=== PATIENT | female | born 1960 | race Caucasian/White ===

== ENCOUNTER 2016-10-14 08:36 | Day surgery (SDC) | payer MEDICARE, OTHER ==
[2016-10-14 08:58] VITALS: TEMP 98.3
[2016-10-14 09:33] LABS: INR 1.1 (<1.1)
[2016-10-14] MEDS: ALBUMIN HUMAN 25% 50 ML in EMPTY BAG 1 BAG IVPB SCH ×4 (11:07→11:56)
--- NOTE | 2016-10-14 11:22 | US ---
EXAMINATION TYPE: US guide vascular access DATE OF EXAM: 10/14/2016 10:32 AM HISTORY: Needs IV access for albumin therapy. PROCEDURE: Maximal barrier technique utilized. The skin overlying the basilic vein was localized with ultrasoun d and the vein was noted to be compressible and patent by ultrasound and ultrasound image was obtaine d and submitted on patient's chart. Under direct ultrasound guidance a 20-gauge Angiocath was advanc ed into the vein and fixed in place. Catheter was aspirated and flushed with sterile saline. Hemost asis achieved. Catheter fixed in place. No immediate complication. IMPRESSION: Ultrasound-guided venipuncture, this procedure performed by the undersigned.
[2016-10-14 11:23] VITALS: RESP 16
[2016-10-14 12:51] VITALS: BP 144/70; PULSE 86
--- NOTE | 2016-10-14 16:55 | US ---
EXAMINATION TYPE: US paracentesis abd w/image DATE OF EXAM: 10/14/2016 1:03 PM COMPARISON: NONE HISTORY: Ascites. PROCEDURE: Maximal barrier technique was utilized. The skin overlying a suitable pocket of fluid was localized with ultrasound and the overlying skin was prepped and draped. Ultrasound was utilized with sterile technique. Lidocaine was used for local anesthesia and a skin nancy made with a scalpel. Catheter was advanced under direct ultrasound guidance into a suitable pocket of fluid and approximately 21 liters of clear yellow fluid were removed. Catheter was withdrawn and hemostasis achieved. There is no im mediate complication; the patient is discharged in stable condition. IMPRESSION: STATUS POST ULTRASOUND GUIDED PARACENTESIS FOR PALLIATION OF ASCITES. THIS PROCEDURE WA S PERFORMED BY THE UNDERSIGNED.
== END 2016-10-14 13:10 | disposition home or self-care (01) ==
LOC: RADPROMAIN 08:36
PROVIDERS: ATTEND Family Medicine
DX: R18.8 Other ascites (principal); K75.9 Inflammatory liver disease, unspecified
CPT/HCPCS: 82565; 85049; 85610; 76937; 49083; P9047

== ENCOUNTER 2016-11-16 08:31 | Day surgery (SDC) | payer MEDICARE, OTHER ==
[~2016-11-16 08:31] MED LIST: SODIUM BICARB 4% 5 ML VIAL (0.48 MEQ/ML) MISCELLANE PRN
[2016-11-16 08:47] VITALS: RESP 20; TEMP 98.4
[2016-11-16 09:33] LABS: INR 1.1 (<1.1); Prothrombin Time 10.8 sec (9.0-12.0)
[2016-11-16] MEDS: ALBUMIN HUMAN 25% 50 ML in EMPTY BAG 1 BAG IVPB SCH ×4 (10:15→11:04)
[2016-11-16 13:03] VITALS: BP 120/78; PULSE 90
--- NOTE | 2016-11-16 13:24 | US ---
Therapeutic paracentesis. CLINICAL HISTORY: Ascites The procedure was discussed with the patient. The risks, complications, benefits, and alternatives we re discussed and any questions were answered. Informed consent was obtained. The patient was placed s upine on the ultrasound table and prepped and draped in the usual sterile fashion. All elements of maximal barrier technique were utilized. Under ultrasound guidance, access into the right lower quadrant was obtained, via the paracentesis catheter system and direct ultrasound guidanc e. Approximately 17 liters of straw-colored fluid was removed. The patient was stable throughout the pro cedure and remained stable upon discharge from Department of Radiology. IMPRESSION: Successful therapeutic paracentesis under ultrasound guidance.
== END 2016-11-16 13:24 | disposition home or self-care (01) ==
LOC: RADPROMAIN 08:31
PROVIDERS: ATTEND Family Medicine
DX: R18.8 Other ascites (principal)
CPT/HCPCS: 82565; 85049; 85610; 96365; 36415; 49083; P9047

== ENCOUNTER 2016-12-09 08:43 | Day surgery (SDC) | payer MEDICARE, OTHER ==
[2016-12-09 08:57] VITALS: TEMP 98.4
[2016-12-09 09:39] LABS: Mean Platelet Volume 7.8
[2016-12-09 09:46] LABS: INR 1.1 (<1.1)
[2016-12-09 09:47] LABS: Prothrombin Time 11.4 sec (9.0-12.0)
[2016-12-09] MEDS: ALBUMIN HUMAN 25% 50 ML in EMPTY BAG 1 BAG IVPB SCH ×4 (10:43→12:17)
[2016-12-09 12:41] VITALS: RESP 16
--- NOTE | 2016-12-09 13:46 | US ---
EXAMINATION TYPE: US paracentesis abd w/image DATE OF EXAM: 12/09/2016 12:56 PM COMPARISON: NONE HISTORY: Ascites. PROCEDURE: Maximal barrier technique was utilized. The skin overlying a suitable pocket of fluid was localized with ultrasound and the overlying skin was prepped and draped. Ultrasound was utilized with sterile technique. Lidocaine was used for local anesthesia and a skin nancy made with a scalpel. Catheter was advanced under direct ultrasound guidance into a suitable pocket of fluid and approximately 15 liters of serous fluid were removed. Catheter was withdrawn and hemostasis achieved. There is no immediat e complication; the patient is discharged in stable condition. IMPRESSION: STATUS POST ULTRASOUND GUIDED PARACENTESIS FOR PALLIATION OF ASCITES. THIS PROCEDURE WA S PERFORMED BY THE UNDERSIGNED.
--- NOTE | 2016-12-09 13:47 | US ---
EXAMINATION TYPE: US guide vascular access DATE OF EXAM: 12/09/2016 11:20 AM HISTORY: Needs IV access for albumin therapy. PROCEDURE: Maximal barrier technique utilized. The skin overlying the basilic vein was localized with ultrasoun d and the vein was noted to be compressible and patent by ultrasound and ultrasound image was obtaine d and submitted on patient's chart. Under direct ultrasound guidance a 20-gauge Angiocath was advanc ed into the vein and fixed in place. Catheter was aspirated and flushed with sterile saline. Hemost asis achieved. Catheter fixed in place. No immediate complication. IMPRESSION: Ultrasound-guided venipuncture, this procedure performed by the undersigned.
[2016-12-09 14:14] VITALS: BP 124/56; PULSE 89
== END 2016-12-09 13:05 | disposition home or self-care (01) ==
LOC: RADPROMAIN 08:43
PROVIDERS: ATTEND Family Medicine
DX: R18.8 Other ascites (principal)
CPT/HCPCS: 82565; 85049; 85610; 96365; 36415; 76937; 49083; P9047

== ENCOUNTER 2016-12-30 09:02 | Day surgery (SDC) | payer MEDICARE, OTHER ==
[2016-12-30 09:16] VITALS: RESP 16; TEMP 98.3
[2016-12-30 09:47] LABS: Prothrombin Time 10.3 sec (9.0-12.0)
[2016-12-30 10:05] LABS: Mean Platelet Volume 8.2
[2016-12-30] MEDS: ALBUMIN HUMAN 25% 50 ML in EMPTY BAG 1 BAG IVPB SCH ×4 (10:57→11:34)
--- NOTE | 2016-12-30 11:45 | US ---
EXAMINATION TYPE: US guide vascular access DATE OF EXAM: 12/30/2016 10:57 AM HISTORY: Needs IV access for albumin therapy. PROCEDURE: Maximal barrier technique utilized. The skin overlying the basilic vein was localized with ultrasoun d and the vein was noted to be compressible and patent by ultrasound and ultrasound image was obtaine d and submitted on patient's chart. Under direct ultrasound guidance a 20-gauge Angiocath was advanc ed into the vein and fixed in place. Catheter was aspirated and flushed with sterile saline. Hemost asis achieved. Catheter fixed in place. No immediate complication. IMPRESSION: Ultrasound-guided venipuncture, this procedure performed by the undersigned.
[2016-12-30 12:07] VITALS: BP 145/60; PULSE 88
--- NOTE | 2016-12-30 13:23 | US ---
EXAMINATION TYPE: US paracentesis abd w/image DATE OF EXAM: 12/30/2016 12:22 PM COMPARISON: NONE HISTORY: Ascites. PROCEDURE: Maximal barrier technique was utilized. The skin overlying a suitable pocket of fluid was localized with ultrasound and the overlying skin was prepped and draped. Ultrasound was utilized with sterile technique. Lidocaine was used for local anesthesia and a skin nancy made with a scalpel. Catheter was advanced under direct ultrasound guidance into a suitable pocket of fluid and approximately 9 liters of serous fluid were removed. Catheter was withdrawn and hemostasis achieved. There is no immediate complication; the patient is discharged in stable condition. IMPRESSION: STATUS POST ULTRASOUND GUIDED PARACENTESIS FOR PALLIATION OF ASCITES. THIS PROCEDURE WA S PERFORMED BY THE UNDERSIGNED.
== END 2016-12-30 12:15 | disposition home or self-care (01) ==
LOC: RADPROMAIN 09:02
PROVIDERS: ATTEND Family Medicine
DX: R18.8 Other ascites (principal)
CPT/HCPCS: 82565; 85049; 85610; 96365; 96366; 76937; 49083; P9047; 93976

== ENCOUNTER 2017-01-20 08:49 | Day surgery (SDC) | payer MEDICARE, OTHER ==
[2017-01-20 10:05] LABS: INR 1.1 (<1.1); Prothrombin Time 10.7 sec (9.0-12.0)
[2017-01-20 10:23] LABS: Mean Platelet Volume 8.5
[2017-01-20] MEDS: ALBUMIN HUMAN 25% 50 ML in EMPTY BAG 1 BAG IVPB SCH ×4 (11:08→11:55)
[2017-01-20 11:37] VITALS: RESP 18; TEMP 98.4
[2017-01-20 11:57] VITALS: BP 121/55; PULSE 90
--- NOTE | 2017-01-20 15:57 | US ---
EXAMINATION TYPE: US paracentesis abd w/image DATE OF EXAM: 01/20/2017 1:02 PM COMPARISON: NONE HISTORY: Ascites. PROCEDURE: Maximal barrier technique was utilized. The skin overlying a suitable pocket of fluid was localized with ultrasound and the overlying skin was prepped and draped. Ultrasound was utilized with sterile technique. Lidocaine was used for local anesthesia and a skin nancy made with a scalpel. Catheter was advanced under direct ultrasound guidance into a suitable pocket of fluid and approximately 8.3 liter s of serous fluid were removed. Catheter was withdrawn and hemostasis achieved. There is no immedia te complication; the patient is discharged in stable condition. IMPRESSION: STATUS POST ULTRASOUND GUIDED PARACENTESIS FOR PALLIATION OF ASCITES. THIS PROCEDURE WA S PERFORMED BY THE UNDERSIGNED.
== END 2017-01-20 12:00 | disposition home or self-care (01) ==
LOC: RADPROMAIN 08:49
PROVIDERS: ATTEND Family Medicine
DX: R18.8 Other ascites (principal)
CPT/HCPCS: 82565; 85049; 85610; 96365; 36415; 49083; P9047

== ENCOUNTER 2017-02-14 08:48 | Day surgery (SDC) | payer MEDICARE, OTHER ==
[2017-02-14 09:37] VITALS: RESP 18; TEMP 98.2
[2017-02-14 09:39] LABS: CH 28.8; CHCM 32.5; HCT 36.4 % (34.0-46.0); HDW 2.72; HGB 11.9 gm/dL (11.4-16.0); MCHC 32.6 g/dL (31.0-37.0); MCV 88.9 fL (80.0-100.0); Mean Platelet Volume 8.6; RBC 4.09 m/uL (3.80-5.40); RDW 14.3 % (11.5-15.5); WBC 7.2 k/uL (3.8-10.6)
[2017-02-14 09:54] LABS: INR 1.1 (<1.1); Prothrombin Time 11.2 sec (9.0-12.0)
[2017-02-14 10:01] LABS: Calcium 9.2 mg/dL (8.4-10.2); Potassium 4.1 mmol/L (3.5-5.1); Total Bilirubin 0.9 mg/dL (0.2-1.3); Total Protein 8.6 g/dL (6.3-8.2)
[2017-02-14] MEDS: ALBUMIN HUMAN 25% 50 ML in EMPTY BAG 1 BAG IVPB SCH ×3 (11:00→13:58)
[2017-02-14 11:25] VITALS: BP 150/68; PULSE 85
--- NOTE | 2017-02-14 11:35 | US ---
EXAMINATION TYPE: US guide vascular access DATE OF EXAM: 02/14/2017 10:59 AM HISTORY: Needs IV access for volume replacement therapy. PROCEDURE: Maximal barrier technique utilized. The skin overlying the basilic vein was localized with ultrasoun d and the vein was noted to be compressible and patent by ultrasound and ultrasound image was obtaine d and submitted on patient's chart. Under direct ultrasound guidance a 20-gauge Angiocath was advanc ed into the vein and fixed in place. Catheter was aspirated and flushed with sterile saline. Hemost asis achieved. Catheter fixed in place. No immediate complication. IMPRESSION: Ultrasound-guided venipuncture, this procedure performed by the undersigned.
--- NOTE | 2017-02-14 12:41 | US ---
EXAMINATION TYPE: US paracentesis abd w/image DATE OF EXAM: 02/14/2017 11:54 AM COMPARISON: NONE HISTORY: Ascites. PROCEDURE: Maximal barrier technique was utilized. The skin overlying a suitable pocket of fluid was localized with ultrasound and the overlying skin was prepped and draped. Ultrasound was utilized with sterile technique. Lidocaine was used for local anesthesia and a skin nancy made with a scalpel. Catheter was advanced under direct ultrasound guidance into a suitable pocket of fluid and approximately 5.3 liter s of serous fluid were removed. Catheter was withdrawn and hemostasis achieved. There is no immedia te complication; the patient is discharged in stable condition. IMPRESSION: STATUS POST ULTRASOUND GUIDED PARACENTESIS FOR PALLIATION OF ASCITES. THIS PROCEDURE WA S PERFORMED BY THE UNDERSIGNED.
== END 2017-02-14 11:30 | disposition home or self-care (01) ==
LOC: RADPROMAIN 08:48
PROVIDERS: ATTEND Family Medicine
DX: R18.8 Other ascites (principal)
CPT/HCPCS: 80053; 85027; 85610; 36415; 76937; 49083; P9047

== ENCOUNTER 2017-03-17 08:51 | Day surgery (SDC) | payer MEDICARE, OTHER ==
[2017-03-17 09:12] VITALS: RESP 20; TEMP 98.4
[2017-03-17 09:28] LABS: Mean Platelet Volume 8.9
[2017-03-17 09:35] LABS: INR 1.1 (<1.1); Prothrombin Time 10.8 sec (9.0-12.0)
[2017-03-17] MEDS: ALBUMIN HUMAN 25% 50 ML in EMPTY BAG 1 BAG IVPB SCH ×4 (11:03→11:50)
[2017-03-17 12:07] VITALS: BP 133/57; PULSE 73
--- NOTE | 2017-03-17 12:45 | US ---
EXAMINATION TYPE: US paracentesis abd w/image DATE OF EXAM: 03/17/2017 COMPARISON: NONE HISTORY: Ascites. PROCEDURE: Maximal barrier technique was utilized. The skin overlying a suitable pocket of fluid was localized with ultrasound and the overlying skin was prepped and draped. Ultrasound was utilized with sterile technique. Lidocaine was used for local anesthesia and a skin nancy made with a scalpel. Catheter was advanced under direct ultrasound guidance into a suitable pocket of fluid and approximately 8.2 liter s of serous fluid were removed. Catheter was withdrawn and hemostasis achieved. There is no immedia te complication; the patient is discharged in stable condition. IMPRESSION: STATUS POST ULTRASOUND GUIDED PARACENTESIS FOR PALLIATION OF ASCITES. THIS PROCEDURE WA S PERFORMED BY THE UNDERSIGNED.
== END 2017-03-17 12:20 | disposition home or self-care (01) ==
LOC: RADPROMAIN 08:51
PROVIDERS: ATTEND Family Medicine
DX: R18.8 Other ascites (principal)
CPT/HCPCS: 82565; 85049; 85610; 96365; 49083; P9047

== ENCOUNTER 2017-05-05 11:49 | Day surgery (SDC) | payer MEDICARE, OTHER ==
[2017-05-05 12:54] VITALS: TEMP 98.3
[2017-05-05 13:00] LABS: Mean Platelet Volume 8.5
[2017-05-05 13:04] LABS: Non-African American GFR(MDRD) 50 (>60 ml/min/1.73 sqM)
[2017-05-05 13:18] LABS: INR 1.1 (<1.2); Prothrombin Time 10.7 sec (9.0-12.0)
[2017-05-05] MEDS: ALBUMIN HUMAN 25% 50 ML in EMPTY BAG 1 BAG IVPB SCH ×4 (14:20→15:21)
--- NOTE | 2017-05-05 15:40 | US ---
EXAMINATION TYPE: US guide vascular access DATE OF EXAM: 05/05/2017 HISTORY: Needs IV access for albumin therapy. PROCEDURE: Maximal barrier technique utilized. The skin overlying the basilic vein was localized with ultrasoun d and the vein was noted to be compressible and patent by ultrasound and ultrasound image was obtaine d and submitted on patient's chart. Under direct ultrasound guidance a 20-gauge Angiocath was advanc ed into the vein and fixed in place. Catheter was aspirated and flushed with sterile saline. Hemost asis achieved. Catheter fixed in place. No immediate complication. IMPRESSION: Ultrasound-guided venipuncture, this procedure performed by the undersigned.
[2017-05-05 16:55] VITALS: BP 141/68; PULSE 80; RESP 16
--- NOTE | 2017-05-16 10:38 | US ---
EXAMINATION TYPE: US paracentesis abd w/image DATE OF EXAM: 05/05/2017 COMPARISON: NONE HISTORY: Ascites. PROCEDURE: Maximal barrier technique was utilized. The skin overlying a suitable pocket of fluid was localized with ultrasound and the overlying skin was prepped and draped. Ultrasound was utilized with sterile technique. Lidocaine was used for local anesthesia and a skin nancy made with a scalpel. Catheter was advanced under direct ultrasound guidance into a suitable pocket of fluid and approximately 14.5 lite rs of serous fluid were removed. Catheter was withdrawn and hemostasis achieved. There is no immedi ate complication; the patient is discharged in stable condition. IMPRESSION: STATUS POST ULTRASOUND GUIDED PARACENTESIS FOR PALLIATION OF ASCITES. THIS PROCEDURE WA S PERFORMED BY THE UNDERSIGNED.
== END 2017-05-05 15:40 | disposition home or self-care (01) ==
LOC: RADPROMAIN 11:49
PROVIDERS: ATTEND Family Medicine
DX: K71.51 Toxic liver disease with chronic active hepatitis with ascites (principal)
CPT/HCPCS: 82565; 85049; 85610; 96365; 36415; 76937; 49083; P9047

== ENCOUNTER 2017-05-19 14:39 | Day surgery (SDC) | payer MEDICARE, OTHER ==
[2017-05-19 12:15] VITALS: RESP 20; TEMP 98.2
[2017-05-19 12:43] LABS: Mean Platelet Volume 8.7
[2017-05-19 12:58] LABS: Non-African American GFR(MDRD) 58 (>60 ml/min/1.73 sqM)
[2017-05-19 12:59] LABS: Prothrombin Time 10.4 sec (9.0-12.0)
[2017-05-19] MEDS: ALBUMIN HUMAN 25% 50 ML in EMPTY BAG 1 BAG IVPB SCH ×4 (14:44→15:21)
--- NOTE | 2017-05-19 15:25 | US ---
EXAMINATION TYPE: US guide vascular access DATE OF EXAM: 05/19/2017 HISTORY: Needs IV access for albumin therapy. PROCEDURE: Maximal barrier technique utilized. The skin overlying the basilic vein was localized with ultrasoun d and the vein was noted to be compressible and patent by ultrasound and ultrasound image was obtaine d and submitted on patient's chart. Under direct ultrasound guidance a 20-gauge Angiocath was advanc ed into the vein and fixed in place. Catheter was aspirated and flushed with sterile saline. Hemost asis achieved. Catheter fixed in place. No immediate complication. IMPRESSION: Ultrasound-guided venipuncture, this procedure performed by the undersigned.
[2017-05-19 16:06] VITALS: BP 154/78; PULSE 78
--- NOTE | 2017-05-19 16:31 | US ---
EXAMINATION TYPE: US paracentesis abd w/image DATE OF EXAM: 05/19/2017 COMPARISON: NONE HISTORY: Ascites. PROCEDURE: Maximal barrier technique was utilized. The skin overlying a suitable pocket of fluid was localized with ultrasound and the overlying skin was prepped and draped. Ultrasound was utilized with sterile technique. Lidocaine was used for local anesthesia and a skin nancy made with a scalpel. Catheter was advanced under direct ultrasound guidance into a suitable pocket of fluid and approximately 10 liters of serous fluid were removed. Catheter was withdrawn and hemostasis achieved. There is no immediat e complication; the patient is discharged in stable condition. IMPRESSION: STATUS POST ULTRASOUND GUIDED PARACENTESIS FOR PALLIATION OF ASCITES. THIS PROCEDURE WA S PERFORMED BY THE UNDERSIGNED.
== END 2017-05-19 16:15 | disposition home or self-care (01) ==
LOC: RADPROMAIN 14:39
PROVIDERS: ATTEND Family Medicine
DX: K71.51 Toxic liver disease with chronic active hepatitis with ascites (principal)
CPT/HCPCS: 36415; 49083; 76937; 82565; 85049; 85610

== ENCOUNTER 2017-06-16 08:47 | Day surgery (SDC) | payer MEDICARE, OTHER ==
[2017-06-16 09:14] VITALS: RESP 18
[2017-06-16 09:23] LABS: Mean Platelet Volume 8.3
[2017-06-16 09:39] LABS: INR 1.1 (<1.2); Prothrombin Time 10.6 sec (9.0-12.0)
[2017-06-16] MEDS: ALBUMIN HUMAN 25% 50 ML in EMPTY BAG 1 BAG IVPB SCH ×3 (10:28→11:39)
--- NOTE | 2017-06-16 10:47 | US ---
EXAMINATION TYPE: US guide vascular access DATE OF EXAM: 06/16/2017 HISTORY: Needs IV access for albumin therapy. PROCEDURE: Maximal barrier technique utilized. The skin overlying the basilic vein was localized with ultrasoun d and the vein was noted to be compressible and patent by ultrasound and ultrasound image was obtaine d and submitted on patient's chart. Under direct ultrasound guidance a 20-gauge Angiocath was advanc ed into the vein and fixed in place. Catheter was aspirated and flushed with sterile saline. Hemost asis achieved. Catheter fixed in place. No immediate complication. IMPRESSION: Ultrasound-guided venipuncture, this procedure performed by the undersigned.
--- NOTE | 2017-06-16 13:01 | US ---
EXAMINATION TYPE: US paracentesis abd w/image DATE OF EXAM: 06/16/2017 COMPARISON: NONE HISTORY: Ascites. PROCEDURE: Maximal barrier technique was utilized. The skin overlying a suitable pocket of fluid was localized with ultrasound and the overlying skin was prepped and draped. Ultrasound was utilized with sterile technique. Lidocaine was used for local anesthesia and a skin nancy made with a scalpel. Catheter was advanced under direct ultrasound guidance into a suitable pocket of fluid and approximately 11.8 lite rs of serous fluid were removed. Catheter was withdrawn and hemostasis achieved. There is no immedi ate complication; the patient is discharged in stable condition. IMPRESSION: STATUS POST ULTRASOUND GUIDED PARACENTESIS FOR PALLIATION OF ASCITES. THIS PROCEDURE WA S PERFORMED BY THE UNDERSIGNED.
[2017-06-16 13:51] VITALS: BP 121/70; PULSE 84
== END 2017-06-16 12:30 | disposition home or self-care (01) ==
LOC: RADPROMAIN 08:47
PROVIDERS: ATTEND Family Medicine
DX: R18.8 Other ascites (principal)
CPT/HCPCS: 82565; 85049; 85610; 96365; 36415; 76937; 49083; P9047

== ENCOUNTER → 2017-07-12 | Outpatient (CLI) | payer MEDICARE, OTHER ==
--- NOTE | 2017-07-12 11:04 | US ---
EXAMINATION TYPE: US abdomen complete DATE OF EXAM: 07/12/2017 COMPARISON: CT CLINICAL HISTORY: K46.9 Abd hernia w/o obstruction. Pt states liver failure, h/o ascites with multipl e para's, recent bulging of lower abdomen just left of umbilicus EXAM MEASUREMENTS: Liver Length: 16.4 cm CBD: 1.4 cm Spleen: 18.5 cm Right Kidney: 10.7 x 4.9 x 4.3 cm Left Kidney: 11.5 x 4.8 x 3.8 cm Large pt body habitus, difficult to scan Pancreas: wnl, tail obscured by overlying bowel gas Liver: Cirrhotic in appearance, compatible with patient's history Gallbladder: Surgically absent Evidence for sonographic Willard's sign: No CBD: Dilated for post justin Spleen: Enlarged Right Kidney: wnl Left Kidney: Multiple cysts, largest measured mid/medial= 1.8 x 1.9 x 2.1 cm Upper IVC: Difficult to visualize due to cirrhotic liver and large pt body habitus Abd Aorta: Obscured by overlying bowel gas Ascites present Lower abdomen left of umbilicus at area of pt's bulging shows fluid filled collection= 10.7 x 4.1 x 12.7 cm with probable communication to ascites IMPRESSION: 1. Left para midline within the subcutaneous tissues there is a focal fluid collection measuring 10.7 x 4.1 x 12.7 cm with a fluid-filled tract communicating with the intra-abdominal ascites (likely mod erate volume ascites but partially visualized). 2. Cirrhotic morphology of the liver, sequela of portal venous hypertension with splenic enlargement and either complex ascites anterior to the pancreas or peripancreatic adenopathy. 3. Left renal cysts with the largest measuring 2.1 cm.
== END | disposition home or self-care (01) ==
LOC: RADUSWWP 10:10
PROVIDERS: ATTEND Family Medicine
DX: N28.1 Cyst of kidney, acquired (principal); K76.6 Portal hypertension; K74.60 Unspecified cirrhosis of liver; R16.1 Splenomegaly, not elsewhere classified; R18.8 Other ascites; R59.9 Enlarged lymph nodes, unspecified
CPT/HCPCS: 76700

== ENCOUNTER 2017-07-21 08:56 | Day surgery (SDC) | payer MEDICARE, OTHER ==
[2017-07-21 09:44] LABS: Mean Platelet Volume 8.9
[2017-07-21 09:51] LABS: INR 1.1 (<1.2); Prothrombin Time 10.8 sec (9.0-12.0)
[2017-07-21 10:22] VITALS: TEMP 98.1
[2017-07-21] MEDS: ALBUMIN HUMAN 25% 50 ML in EMPTY BAG 1 BAG IVPB SCH ×4 (11:00→11:55)
[2017-07-21 11:57] VITALS: RESP 16
[2017-07-21 12:58] VITALS: BP 130/70; PULSE 80
--- NOTE | 2017-07-21 13:44 | US ---
EXAMINATION TYPE: US guide vascular access DATE OF EXAM: 07/21/2017 HISTORY: Needs IV access for albumin therapy. PROCEDURE: Maximal barrier technique utilized. The skin overlying the basilic vein was localized with ultrasoun d and the vein was noted to be compressible and patent by ultrasound and ultrasound image was obtaine d and submitted on patient's chart. Under direct ultrasound guidance a 20-gauge Angiocath was advanc ed into the vein and fixed in place. Catheter was aspirated and flushed with sterile saline. Hemost asis achieved. Catheter fixed in place. No immediate complication. IMPRESSION: Ultrasound-guided venipuncture, this procedure performed by the undersigned.
--- NOTE | 2017-07-21 13:45 | US ---
EXAMINATION TYPE: US paracentesis abd w/image DATE OF EXAM: 07/21/2017 COMPARISON: NONE HISTORY: Ascites. PROCEDURE: Maximal barrier technique was utilized. The skin overlying a suitable pocket of fluid was localized with ultrasound and the overlying skin was prepped and draped. Ultrasound was utilized with sterile technique. Lidocaine was used for local anesthesia and a skin nancy made with a scalpel. Catheter was advanced under direct ultrasound guidance into a suitable pocket of fluid and approximately 11.4 lite rs of serous fluid were removed. Catheter was withdrawn and hemostasis achieved. There is no immedi ate complication; the patient is discharged in stable condition. IMPRESSION: STATUS POST ULTRASOUND GUIDED PARACENTESIS FOR PALLIATION OF ASCITES. THIS PROCEDURE WA S PERFORMED BY THE UNDERSIGNED.
== END 2017-07-21 12:20 | disposition home or self-care (01) ==
LOC: RADPROMAIN 08:56
PROVIDERS: ATTEND Family Medicine
DX: K71.51 Toxic liver disease with chronic active hepatitis with ascites (principal)
CPT/HCPCS: 82565; 85049; 85610; 96365; 36415; 76937; 49083; P9047

== ENCOUNTER 2017-08-18 08:32 | Day surgery (SDC) | payer MEDICARE, OTHER ==
[2017-08-18 09:17] VITALS: RESP 14; TEMP 97.5
[2017-08-18 09:18] LABS: Mean Platelet Volume 8.9
[2017-08-18 10:43] LABS: Partial Thromboplastin Time 23.4 sec (22.0-30.0); Prothrombin Time 10.5 sec (9.0-12.0)
[2017-08-18] MEDS: ALBUMIN HUMAN 25% 50 ML in EMPTY BAG 1 BAG IVPB SCH ×4 (11:15→11:50)
[2017-08-18 12:53] VITALS: BP 146/93; PULSE 85
--- NOTE | 2017-08-18 13:26 | US ---
EXAMINATION TYPE: US guide vascular access DATE OF EXAM: 08/18/2017 HISTORY: Needs IV access for albumin therapy. PROCEDURE: Maximal barrier technique utilized. The skin overlying the basilic vein was localized with ultrasoun d and the vein was noted to be compressible and patent by ultrasound and ultrasound image was obtaine d and submitted on patient's chart. Under direct ultrasound guidance a 20-gauge Angiocath was advanc ed into the vein and fixed in place. Catheter was aspirated and flushed with sterile saline. Hemost asis achieved. Catheter fixed in place. No immediate complication. IMPRESSION: Ultrasound-guided venipuncture, this procedure performed by the undersigned.
--- NOTE | 2017-08-18 14:47 | US ---
EXAMINATION TYPE: US paracentesis abd w/image DATE OF EXAM: 08/18/2017 COMPARISON: NONE HISTORY: Ascites. PROCEDURE: Maximal barrier technique was utilized. The skin overlying a suitable pocket of fluid was localized with ultrasound and the overlying skin was prepped and draped. Ultrasound was utilized with sterile technique. Lidocaine was used for local anesthesia and a skin nancy made with a scalpel. Catheter was advanced under direct ultrasound guidance into a suitable pocket of fluid and approximately 13.2 lite rs of serous fluid were removed. Catheter was withdrawn and hemostasis achieved. There is no immedi ate complication; the patient is discharged in stable condition. IMPRESSION: STATUS POST ULTRASOUND GUIDED PARACENTESIS FOR PALLIATION OF ASCITES. THIS PROCEDURE WA S PERFORMED BY THE UNDERSIGNED.
== END 2017-08-18 13:04 | disposition home or self-care (01) ==
LOC: RADPROMAIN 08:32
PROVIDERS: ATTEND Family Medicine
DX: R18.8 Other ascites (principal)
CPT/HCPCS: 82565; 85049; 85610; 85730; 96365; 76937; 49083; P9047

== ENCOUNTER 2017-08-31 15:42 | Emergency (ER) | payer MEDICARE, OTHER ==
[2017-08-31 15:51] VITALS: RESP 18
[2017-08-31] MEDS ORDERED: KETOROLAC 30 MG/ML 1 ML VIAL IVP STA (16:06)
[2017-08-31] MEDS ORDERED: MORPHINE SULFATE 2 MG/ML SYRINGE IVP STA (16:06)
[2017-08-31] MEDS ORDERED: ONDANSETRON 4 MG/2 ML VIAL IVP STA (16:06)
--- NOTE | 2017-08-31 16:11 | ED ---
Abdominal Pain HPI - General Chief Complaint: Abdominal Pain Stated Complaint: POSS KIDNEY STONE Source: patient Mode of arrival: ambulatory Limitations: no limitations - History of Present Illness Initial Comments: Patient is a 57-year-old female with a past medical history of hepatitis C and end-stage liver cirrhosis presenting with right upper flank pain radiating down to her right hip that started yesterday. Past medical history as below. Patient states that she developed a sharp pain last night. Around 11 PM it started to dissipate after taking an oral pain medication. She woke up this morning in the right flank pain was more dull in nature. Very positional. It radiates down to her right hip. She took a half tab of Percocet prior to arrival and states that the pain is significantly improved. She has associated nausea. Chills. No blood in her urine. No pain or burning with urination. She does not have a urologist. Her last kidney stone was about 10 years ago. States that the pain is almost identical to the pain that she is having now. Otherwise denies fever, chills, headache and changes of vision, URI symptoms, shortness of breath, cough, chest pain, vomiting, diarrhea, pain or burning with urination. - Related Data Home Medications Medication Instructions Recorded Confirmed Furosemide [Lasix] 80 mg PO DAILY 04/01/16 08/31/17 Spironolactone 200 mg PO DAILY 05/13/16 08/31/17 oxyCODONE HCL/ACETAMINOPHEN 1 tab PO QID PRN 08/31/17 08/31/17 [Percocet 10-325 mg] Allergies Allergy/AdvReac Type Severity Reaction Status Date / Time No Known Allergies Allergy Verified 08/31/17 16:22 Review of Systems ROS Statement: Those systems with pertinent positive or pertinent negative responses have been documented in the HPI. ROS Other: All systems not noted in ROS Statement are negative. Past Medical History Past Medical History: Liver Disease Additional Past Medical History / Comment(s): hepatitis c, end stage liver disease, kidney stones, cryptosporidium positive, Ascites pancreatitis History of Any Multi-Drug Resistant Organisms: None Reported Past Surgical History: Cholecystectomy, Hysterectomy Additional Past Surgical History / Comment(s): multi large volume paracentesis Past Anesthesia/Blood Transfusion Reactions: No Reported Reaction Past Psychological History: No Psychological Hx Reported Smoking Status: Former smoker Past Alcohol Use History: None Reported Past Drug Use History: None Reported - Past Family History Mother Family Medical History: Cancer Additional Family Medical History / Comment(s): breast with mets Father Family Medical History: Cancer Additional Family Medical History / Comment(s): prostate and colon ca General Exam Limitations: no limitations General appearance: alert, in no apparent distress Head exam: Present: atraumatic, normocephalic, normal inspection Eye exam: Present: normal appearance, PERRL, EOMI. Absent: scleral icterus, conjunctival injection, periorbital swelling ENT exam: Present: normal exam, mucous membranes moist Neck exam: Present: normal inspection. Absent: tenderness, meningismus, lymphadenopathy Respiratory exam: Present: normal lung sounds bilaterally. Absent: respiratory distress, wheezes, rales, rhonchi, stridor Cardiovascular Exam: Present: regular rate, normal rhythm, normal heart sounds. Absent: systolic murmur, diastolic murmur, rubs, gallop, clicks GI/Abdominal exam: Present: soft, normal bowel sounds, other (Right upper flank pain. Reproducible. No pain in the inguinal area or suprapubic area. No pain with palpation of the abdomen. There is an ascitic fluid wave. No peritoneal signs.). Absent: distended, tenderness, guarding, rebound, rigid Extremities exam: Present: normal inspection, full ROM, normal capillary refill. Absent: tenderness, pedal edema, joint swelling, calf tenderness Back exam: Present: normal inspection Neurological exam: Present: alert, oriented X3, CN II-XII intact Psychiatric exam: Present: normal affect, normal mood Skin exam: Present: warm, dry, intact, normal color. Absent: rash Course Vital Signs 08/31/17 08/31/17 08/31/17 15:46 17:28 17:48 Temperature 97.7 F 98.1 F Pulse Rate 68 79 Respiratory 18 18 Rate Blood Pressure 201/93 142/70 O2 Sat by Pulse 100 98 Oximetry Medical Decision Making - Medical Decision Making Patient is a 57-year-old female with a history of end-stage cirrhosis secondary to hep C and history of kidney stones presenting with history concerning for possible right nephrolithiasis. States that her symptoms are identical to her previous kidney stone 10 years ago. She has no abdominal pain otherwise. No fevers. We'll order a CT renal stone protocol with abdominal labs, coags and a urinalysis, EKG. Morphine. Toradol. Zofran. 1637: Reviewed EKG. Normal sinus rhythm at 83. MT 166. QRS 72. QTc 446. No ST changes. 1710: Reviewed laboratory studies. CBC within normal limits. Electrolytes relatively within normal limits. Potassium hemolyzed. Liver function at baseline. Awaiting CT findings. Patient resting comfortably in the stretcher. Pain has 100% resolved. 1735: Reviewed CT findings with the patient. Chronic findings of umbilical hernia, cyst on the kidney, cirrhosis, ascites is known to the patient. Discussed that there seems to be a pulmonary nodule on the left lower lobe. This is new to the patient. Discussed that she will need repeat computed tomography scan in 6 months. Voiced understanding. Is also evidence of right hydronephrosis. No hydroureter. No obvious kidney stone but there could be one in the distal ureter per the radiology read. I discussed this with the patient. Her pain is well-controlled at this time. Comfortable discharge home and follow-up with her primary care physician. Provided a urologist for outpatient follow-up. Provided a urine strainer. Will follow-up with both her GI physician and primary care physician early next week. She is scheduled for a paracentesis on 09/08/2017. Noted that her blood pressure was quite elevated. Patient states that her blood pressures not treated secondary to her cirrhosis. Her blood pressure becomes a normal level after paracentesis. Instructed her to closely follow her blood pressures with the possibility of being on antihypertensive medication in the near future. I discussed further signs and symptoms on when to return to the emergency department for further evaluation. Voiced understanding and is comfortable discharge home. - Lab Data Result diagrams: 08/31/17 16:15 08/31/17 16:15 Lab Results 08/31/17 08/31/17 08/31/17 Range/Units 16:15 16:15 16:15 WBC 6.7 (3.8-10.6) k/uL RBC 4.12 (3.80-5.40) m/uL Hgb 11.6 (11.4-16.0) gm/dL Hct 35.7 (34.0-46.0) % MCV 86.8 (80.0-100.0) fL MCH 28.2 (25.0-35.0) pg MCHC 32.4 (31.0-37.0) g/dL RDW 13.6 (11.5-15.5) % Plt Count 98 L (150-450) k/uL Neutrophils % 81 % Lymphocytes % 9 % Monocytes % 6 % Eosinophils % 2 % Basophils % 0 % Neutrophils # 5.4 (1.3-7.7) k/uL Lymphocytes # 0.6 L (1.0-4.8) k/uL Monocytes # 0.4 (0-1.0) k/uL Eosinophils # 0.1 (0-0.7) k/uL Basophils # 0.0 (0-0.2) k/uL Manual Slide Review Performed RBC Morphology Normal PT 10.4 (9.0-12.0) sec INR 1.0 (<1.2) APTT 21.3 L (22.0-30.0) sec Sodium 139 (137-145) mmol/L Potassium 5.2 H (3.5-5.1) mmol/L Chloride 110 H (98-107) mmol/L Carbon Dioxide 20 L (22-30) mmol/L Anion Gap 9 mmol/L BUN 24 H (7-17) mg/dL Creatinine 1.40 H (0.52-1.04) mg/dL Est GFR (MDRD) Af Amer 47 (>60 ml/min/1.73 sqM) Est GFR (MDRD) Non-Af 38 (>60 ml/min/1.73 sqM) Glucose 222 H (74-99) mg/dL Calcium 8.6 (8.4-10.2) mg/dL Magnesium 1.7 (1.6-2.3) mg/dL Total Bilirubin 1.6 H (0.2-1.3) mg/dL AST 74 H (14-36) U/L ALT 39 (9-52) U/L Alkaline Phosphatase 82 (38-126) U/L Total Protein 7.9 (6.3-8.2) g/dL Albumin 3.5 (3.5-5.0) g/dL Urine Color Urine Appearance (Clear) Urine pH (5.0-8.0) Ur Specific [place] (1.001-1.035) Urine Protein (Negative) Urine Glucose (UA) (Negative) Urine Ketones (Negative) Urine Blood (Negative) Urine Nitrite (Negative) Urine Bilirubin (Negative) Urine Urobilinogen (<2.0) mg/dL Ur Leukocyte Esterase (Negative) Urine RBC (0-5) /hpf Urine WBC (0-5) /hpf Ur Squamous Epith Cells (0-4) /hpf Hyaline Casts (0-2) /lpf Urine Mucus (None) /hpf 08/31/17 Range/Units 16:15 WBC (3.8-10.6) k/uL RBC (3.80-5.40) m/uL Hgb (11.4-16.0) gm/dL Hct (34.0-46.0) % MCV (80.0-100.0) fL MCH (25.0-35.0) pg MCHC (31.0-37.0) g/dL RDW (11.5-15.5) % Plt Count (150-450) k/uL Neutrophils % % Lymphocytes % % Monocytes % % Eosinophils % % Basophils % % Neutrophils # (1.3-7.7) k/uL Lymphocytes # (1.0-4.8) k/uL Monocytes # (0-1.0) k/uL Eosinophils # (0-0.7) k/uL Basophils # (0-0.2) k/uL Manual Slide Review RBC Morphology PT (9.0-12.0) sec INR (<1.2) APTT (22.0-30.0) sec Sodium (137-145) mmol/L Potassium (3.5-5.1) mmol/L Chloride (98-107) mmol/L Carbon Dioxide (22-30) mmol/L Anion Gap mmol/L BUN (7-17) mg/dL Creatinine (0.52-1.04) mg/dL Est GFR (MDRD) Af Amer (>60 ml/min/1.73 sqM) Est GFR (MDRD) Non-Af (>60 ml/min/1.73 sqM) Glucose (74-99) mg/dL Calcium (8.4-10.2) mg/dL Magnesium (1.6-2.3) mg/dL Total Bilirubin (0.2-1.3) mg/dL AST (14-36) U/L ALT (9-52) U/L Alkaline Phosphatase (38-126) U/L Total Protein (6.3-8.2) g/dL Albumin (3.5-5.0) g/dL Urine Color Colorless Urine Appearance Clear (Clear) Urine pH 5.0 (5.0-8.0) Ur Specific [place] 1.005 (1.001-1.035) Urine Protein Trace H (Negative) Urine Glucose (UA) Negative (Negative) Urine Ketones Negative (Negative) Urine Blood Small H (Negative) Urine Nitrite Negative (Negative) Urine Bilirubin Negative (Negative) Urine Urobilinogen <2.0 (<2.0) mg/dL Ur Leukocyte Esterase Negative (Negative) Urine RBC 4 (0-5) /hpf Urine WBC 1 (0-5) /hpf Ur Squamous Epith Cells 1 (0-4) /hpf Hyaline Casts 1 (0-2) /lpf Urine Mucus Rare H (None) /hpf Disposition Clinical Impression: Flank pain, Hydronephrosis, Ascites, Cirrhosis, Pulmonary nodule, CKD (chronic kidney disease) Disposition: HOME SELF-CARE Condition: Good Instructions: Cirrhosis (ED), Kidney Stones (ED), Pulmonary Nodules (ED) Additional Instructions: Repeat CAT scan of the lungs and 6 months to evaluate pulmonary nodule on the left lower lobe. Referrals: Jordy Rios Jr, DO [Primary Care Provider] - 1-2 days Ludin Gay MD [STAFF PHYSICIAN] - 1-2 days
[2017-08-31 16:36] LABS: Appearance,Urine Clear (Clear); Bilirubin,Urine Negative (Negative); Glucose,Urine (UA) Negative (Negative); Ketones,Urine Negative (Negative); Leukocyte Esterase,Urine Negative (Negative); Mucus,Urine Rare /hpf; Nitrite,Urine Negative (Negative); Particle Count 1212; Protein,Urine Trace (Negative); RBC,Urine 4 /hpf (0-5); Specific Gravity,Urine 1.005 (1.001-1.035); Squamous Epithelial Cell,Urine 1 /hpf (0-4); UA Billing (MACRO vs. MICRO) MICRO; Urobilinogen,Urine <2.0 mg/dL (<2.0); WBC,Urine 1 /hpf (0-5)
[2017-08-31 16:38] LABS: Basophils % (A) 0 %; CH 28.9; CHCM 33.4; Eosinophils # (A) 0.1 k/uL (0-0.7); Eosinophils % (A) 2 %; HCT 35.7 % (34.0-46.0); HDW 2.86; HGB 11.6 gm/dL (11.4-16.0); Luc # (Auto) 0.09; Luc % (Auto) 1; Lymphocytes # (A) 0.6 k/uL (1.0-4.8); Lymphocytes % (A) 9 %; MCH 28.2 pg (25.0-35.0); MCHC 32.4 g/dL (31.0-37.0); MCV 86.8 fL (80.0-100.0); Mean Platelet Volume 8.3; Monocytes # (A) 0.4 k/uL (0-1.0); Monocytes % (A) 6 %; Neutrophils # (A) 5.4 k/uL (1.3-7.7); Neutrophils % (A) 81 %; RBC 4.12 m/uL (3.80-5.40); RDW 13.6 % (11.5-15.5); WBC 6.7 k/uL (3.8-10.6); WBC (Perox) 6.81
[2017-08-31 16:47] LABS: Calcium 8.6 mg/dL (8.4-10.2); Magnesium 1.7 mg/dL (1.6-2.3); Potassium 5.2 mmol/L (3.5-5.1); Total Bilirubin 1.6 mg/dL (0.2-1.3); Total Protein 7.9 g/dL (6.3-8.2)
[2017-08-31 17:00] LABS: Manual Review Performed; RBC Morphology Normal
[2017-08-31 17:04] LABS: Prothrombin Time 10.4 sec (9.0-12.0)
[2017-08-31 17:09] LABS: Partial Thromboplastin Time 21.3 sec (22.0-30.0)
--- NOTE | 2017-08-31 17:17 | CT ---
EXAMINATION TYPE: CT renal stones wo con DATE OF EXAM: 08/31/2017 HISTORY: right side flank pain, hx of renal stones, cysts, panreatitis, enlarged spleen CT DLP: 1083 mGycm. Automated Exposure Control for Dose Reduction was Utilized. TECHNIQUE: CT scan of the abdomen and pelvis is performed without oral or IV contrast. COMPARISON: 02/26/2016 FINDINGS: There is a 2 cm irregular subpleural infiltrate in the lateral left lower lobe. There is n o pleural effusion. There is a large amount of ascites fluid throughout the abdomen. There is umbilical hernia that conta ins ascites fluid. Liver is somewhat small consistent with cirrhosis. There is splenomegaly and spleen measures 15 cm. B ile ducts are not dilated. There are clips from cholecystectomy. I see no pancreatic mass. Kidneys have normal size. There is probably a 2 cm cortical cyst on the lateral left kidney. There is a somewhat exophytic 2 cm density on the lateral left kidney as well. This is probably additional cy st. The ureters do not appear dilated. There is some fullness of the left and right renal pelvis. The re are 7 mm pelvic calcifications on the right side and there is possibly a stone in the distal right ureter. The right sided hydronephrosis appears new compared to old exam. Left side appears unchanged . There is no sign of free air. I see no evidence of a bowel obstruction. There is a 9 x 6 cm fluid col lection inferior to the umbilicus in the subcutaneous fat consistent with additional ascites collecti on. I see no focal bone destruction. CONCLUSION: Massive ascites. There is new right-sided hydronephrosis compared to last exam and possible calculus in the distal right ureter that is new compared to last exam. Umbilical hernia and also additional subcutaneous ascites fluid on the lower anterior abdominal wall. Cirrhosis. Splenomegaly. There is clearing of a calculus in the left kidney compared to last exam. There are 2 left renal elma ical cysts that are stable in size compared to last exam. The exophytic cyst has higher attenuation c ompared to last exam and this could relate to calcium deposit.
[2017-08-31 17:29] VITALS: BP 142/70; PULSE 79
[2017-08-31 17:48] VITALS: TEMP 98.1
== END 2017-08-31 17:49 | disposition home or self-care (01) ==
LOC: EC 15:42
DX: N13.30 Unspecified hydronephrosis (principal); K74.60 Unspecified cirrhosis of liver; R91.1 Solitary pulmonary nodule; N18.9 Chronic kidney disease, unspecified; Z86.19 Personal history of other infectious and parasitic diseases; Z87.442 Personal history of urinary calculi; Z90.49 Acquired absence of other specified parts of digestive tract; Z87.891 Personal history of nicotine dependence; Z79.899 Other long term (current) drug therapy
CPT/HCPCS: 36415; 93005; 80053; 83735; 85025; 85610; 85730; 81001; 74150; 99284; 96374; 96375 ×2; J2405; J1885; J2270

== ENCOUNTER 2017-11-24 11:57 | Day surgery (SDC) | payer MEDICARE, OTHER ==
[2017-11-24 12:44] VITALS: TEMP 98.4
[2017-11-24 13:16] LABS: INR 1.1 (<1.2); Prothrombin Time 10.6 sec (9.0-12.0)
[2017-11-24 13:48] LABS: Platelet Count 82 k/uL (150-450)
[2017-11-24] MEDS: ALBUMIN HUMAN 25% 50 ML in EMPTY BAG 1 BAG IVPB SCH ×4 (13:56→14:57)
--- NOTE | 2017-11-24 15:24 | US ---
EXAMINATION TYPE: US guide vascular access DATE OF EXAM: 11/24/2017 HISTORY: Needs IV access for albumin therapy. Multiple failed attempts at intravenous access. PROCEDURE: Maximal barrier technique utilized. The skin overlying the right basilic vein was localized with ult rasound and the vein was noted to be compressible and patent by ultrasound and ultrasound image was o btained and submitted on patient's chart. Under direct ultrasound guidance a 20-gauge Angiocath was advanced into the vein and fixed in place. Catheter was aspirated and flushed with sterile saline. Hemostasis achieved. Catheter fixed in place. No immediate complication. IMPRESSION: Ultrasound-guided venipuncture, this procedure performed by the undersigned.
--- NOTE | 2017-11-24 15:42 | US ---
EXAMINATION TYPE: US paracentesis abd w/image DATE OF EXAM: 11/24/2017 COMPARISON: NONE HISTORY: Ascites. PROCEDURE: Maximal barrier technique was utilized. The skin overlying a suitable pocket of fluid was localized with ultrasound and the overlying skin was prepped and draped. Ultrasound was utilized with sterile technique. Lidocaine was used for local anesthesia and a skin nancy made with a scalpel. Catheter was advanced under direct ultrasound guidance into a suitable pocket of fluid and approximately 8 liters of serous fluid were removed. Catheter was withdrawn and hemostasis achieved. There is no immediate complication; the patient is discharged in stable condition. IMPRESSION: STATUS POST ULTRASOUND GUIDED PARACENTESIS FOR PALLIATION OF ASCITES. THIS PROCEDURE WA S PERFORMED BY THE UNDERSIGNED.
[2017-11-24 15:52] VITALS: BP 151/69; PULSE 83; RESP 18
== END 2017-11-24 15:30 | disposition home or self-care (01) ==
LOC: RADPROMAIN 11:57
PROVIDERS: ATTEND Family Medicine
DX: K71.51 Toxic liver disease with chronic active hepatitis with ascites (principal)
CPT/HCPCS: 82565; 85049; 85610; 96365; 36415; 76937; 49083; P9047

== ENCOUNTER 2018-01-05 11:40 | Day surgery (SDC) | payer MEDICARE, OTHER ==
[2018-01-05 12:47] LABS: Basophils % (A) 1 %; Eosinophils # (A) 0.3 k/uL (0-0.7); Eosinophils % (A) 6 %; HCT 32.4 % (34.0-46.0); HGB 11.1 gm/dL (11.4-16.0); Lymphocytes # (A) 0.7 k/uL (1.0-4.8); Lymphocytes % (A) 15 %; MCH 28.8 pg (25.0-35.0); MCHC 34.2 g/dL (31.0-37.0); Mean Platelet Volume 8.7; Monocytes # (A) 0.2 k/uL (0-1.0); Monocytes % (A) 5 %; Neutrophils # (A) 3.3 k/uL (1.3-7.7); Neutrophils % (A) 73 %; RBC 3.85 m/uL (3.80-5.40); RDW 13.8 % (11.5-15.5); WBC 4.6 k/uL (3.8-10.6)
[2018-01-05 12:53] LABS: INR 1.1 (<1.2); Prothrombin Time 10.4 sec (9.0-12.0)
[2018-01-05 12:56] LABS: Platelet Count 81 k/uL (150-450)
[2018-01-05 13:09] LABS: Albumin 3.2 g/dL (3.5-5.0); Potassium 4.8 mmol/L (3.5-5.1)
[2018-01-05 13:10] LABS: Bilirubin, Delta 0.4 mg/dL (0.0-0.2); Bilirubin,Unconjugated 0.3 mg/dL (0.0-1.1); Calcium 8.9 mg/dL (8.4-10.2); Total Bilirubin 0.7 mg/dL (0.2-1.3)
[2018-01-05 13:15] VITALS: TEMP 97.9
[2018-01-05] MEDS: ALBUMIN HUMAN 25% 50 ML in EMPTY BAG 1 BAG IVPB SCH ×4 (13:33→15:06)
[2018-01-05 13:54] VITALS: RESP 16
--- NOTE | 2018-01-05 14:51 | US ---
EXAMINATION TYPE: US paracentesis abd w/image DATE OF EXAM: 01/05/2018 COMPARISON: NONE HISTORY: Ascites. PROCEDURE: Maximal barrier technique was utilized. The skin overlying a suitable pocket of fluid was localized with ultrasound and the overlying skin was prepped and draped. Ultrasound was utilized with sterile technique. Lidocaine was used for local anesthesia and a skin nancy made with a scalpel. Catheter was advanced under direct ultrasound guidance into a suitable pocket of fluid and approximately 4.8 liter s of serous fluid were removed. Catheter was withdrawn and hemostasis achieved. There is no immedia te complication; the patient is discharged in stable condition. IMPRESSION: STATUS POST ULTRASOUND GUIDED PARACENTESIS FOR PALLIATION OF ASCITES. THIS PROCEDURE WA S PERFORMED BY THE UNDERSIGNED.
--- NOTE | 2018-01-05 14:52 | US ---
EXAMINATION TYPE: US guide vascular access DATE OF EXAM: 01/05/2018 HISTORY: Needs IV access for albumin therapy, poor venous access. PROCEDURE: Maximal barrier technique utilized. The skin overlying the basilic vein was localized with ultrasoun d and the vein was noted to be compressible and patent by ultrasound and ultrasound image was obtaine d and submitted on patient's chart. Under direct ultrasound guidance a 20-gauge Angiocath was advanc ed into the vein and fixed in place. Catheter was aspirated and flushed with sterile saline. Hemost asis achieved. Catheter fixed in place. No immediate complication. IMPRESSION: Ultrasound-guided venipuncture, this procedure performed by the undersigned.
[2018-01-05 15:04] VITALS: BP 159/81; PULSE 80
[2018-01-05 21:22] LABS: Hemoglobin A1C 8.8 % (4.0-6.0)
== END 2018-01-05 14:45 | disposition home or self-care (01) ==
LOC: RADPROMAIN 11:40
PROVIDERS: ATTEND Family Medicine
DX: K71.51 Toxic liver disease with chronic active hepatitis with ascites (principal)
CPT/HCPCS: 80053; 82248; 85025; 85610; 83036; 96365; 36415; 76937; 49083; P9047

== ENCOUNTER 2018-05-14 12:04 | Day surgery (SDC) | payer MEDICARE, OTHER ==
[2018-05-14 12:23] VITALS: TEMP 98.1
[2018-05-14 12:52] LABS: INR 1.1 (<1.2); Prothrombin Time 10.5 sec (9.0-12.0)
[2018-05-14 13:18] LABS: Glucose,Whole Blood 393 mg/dL (75-99)
[2018-05-14 13:30] LABS: Mean Platelet Volume 8.4; Platelet Count 74 k/uL (150-450)
[2018-05-14] MEDS: ALBUMIN HUMAN 25% 50 ML in EMPTY BAG 1 BAG IVPB SCH ×4 (13:56→14:56)
[2018-05-14 14:49] VITALS: BP 175/89; PULSE 84; RESP 18
--- NOTE | 2018-05-14 18:06 | US ---
EXAMINATION TYPE: US paracentesis abd w/image DATE OF EXAM: 05/14/2018 COMPARISON: NONE HISTORY: Ascites. PROCEDURE: Maximal barrier technique was utilized. The skin overlying a suitable pocket of fluid was localized with ultrasound and the overlying skin was prepped and draped. Ultrasound was utilized with sterile technique. Lidocaine was used for local anesthesia and a skin nancy made with a scalpel. Catheter was advanced under direct ultrasound guidance into a suitable pocket of fluid and approximately 6.4 liter s of serous fluid were removed. Catheter was withdrawn and hemostasis achieved. There is no immedia te complication; the patient is discharged in stable condition. IMPRESSION: STATUS POST ULTRASOUND GUIDED PARACENTESIS FOR PALLIATION OF ASCITES. THIS PROCEDURE WA S PERFORMED BY THE UNDERSIGNED.
--- NOTE | 2018-05-14 18:07 | US ---
EXAMINATION TYPE: US guide vascular access DATE OF EXAM: 05/14/2018 HISTORY: Needs IV access for albumin therapy. PROCEDURE: Maximal barrier technique utilized. The skin overlying the basilic vein was localized with ultrasoun d and the vein was noted to be compressible and patent by ultrasound and ultrasound image was obtaine d and submitted on patient's chart. Under direct ultrasound guidance a 20-gauge Angiocath was advanc ed into the vein and fixed in place. Catheter was aspirated and flushed with sterile saline. Hemost asis achieved. Catheter fixed in place. No immediate complication. IMPRESSION: Ultrasound-guided venipuncture, this procedure performed by the undersigned.
== END 2018-05-14 15:00 | disposition home or self-care (01) ==
LOC: RADPROMAIN 12:04
PROVIDERS: ATTEND Family Medicine
DX: R18.8 Other ascites (principal)
CPT/HCPCS: 36000; 82565; 85049; 85610; 76937; 49083; P9047

== ENCOUNTER 2019-07-22 11:54 | Day surgery (SDC) | payer MEDICARE, OTHER ==
[2019-07-22 12:14] LABS: Glucose,Whole Blood 202 mg/dL (75-99)
[2019-07-22 13:07] LABS: INR 0.9 (<1.2); Prothrombin Time 10.1 sec (9.0-12.0)
[2019-07-22 13:21] VITALS: RESP 16; TEMP 98.6
[2019-07-22 13:21] LABS: Platelet Count 77 k/uL (150-450)
[2019-07-22] MEDS: ALBUMIN HUMAN 25% 50 ML in EMPTY BAG 1 BAG IVPB SCH ×4 (13:55→15:31)
[2019-07-22 15:34] VITALS: BP 168/71; PULSE 76
--- NOTE | 2019-07-23 08:57 | US ---
Therapeutic paracentesis. DATE OF EXAM: 07/22/2019 CLINICAL HISTORY: Ascites The procedure was discussed with the patient. The risks, complications, benefits, and alternatives we re discussed and any questions were answered. Informed consent was obtained. The patient was placed s upine on the ultrasound table and prepped and draped in the usual sterile fashion. All elements of maximal barrier technique were utilized. Under ultrasound guidance, access into the right lower quadrant was obtained, via the paracentesis catheter system and direct ultrasound guidanc e. Approximately 5.3 liters of straw-colored fluid was removed. The patient was stable throughout the pr ocedure and remained stable upon discharge from Department of Radiology. IMPRESSION: Successful therapeutic paracentesis under ultrasound guidance.
== END 2019-07-22 15:00 | disposition home or self-care (01) ==
LOC: RADPROMAIN 11:54
PROVIDERS: ATTEND Family Medicine
DX: K71.51 Toxic liver disease with chronic active hepatitis with ascites (principal); I87.2 Venous insufficiency (chronic) (peripheral)
CPT/HCPCS: 36410; 76937; 82565; 85049; 85610; 36415; 49083; P9047

== ENCOUNTER 2020-07-15 12:38 | Day surgery (SDC) | payer MEDICARE, OTHER ==
[2020-07-15 14:05] VITALS: RESP 18; TEMP 98.5
[2020-07-15] MEDS: ALBUMIN HUMAN 25% 50 ML in EMPTY BAG 1 BAG IVPB SCH ×3 (15:21→16:00)
[2020-07-15 15:40] VITALS: BP 148/70; PULSE 80
--- NOTE | 2020-07-15 16:30 | US ---
EXAMINATION TYPE: US paracentesis abd w/image DATE OF EXAM: 07/15/2020 CLINICAL HISTORY: Ascites COMPARISON: Ultrasound-guided paracentesis 07/22/2019 [employer]ER: Dr. Geeta Rojas PROCEDURE: Preprocedure preliminary ultrasound imaging demonstrates large volume ascites. The procedure was discussed with the patient. The risks, complications, benefits, and alternatives we re discussed and any questions were answered. Informed consent was obtained. The patient was placed s upine on the ultrasound table and prepped and draped in the usual sterile fashion. All elements of maximal barrier technique were utilized. Under ultrasound guidance, access into the right lower quadrant was obtained with a 5 [place] one-step centesis catheter. Approximately 4.1 liters of clear serous fluid was removed. Catheter was removed and sterile bandage was applied. The patient was stable throughout the procedure and remained stable upon discharge from Department of Radiology. IMPRESSION: Successful ultrasound-guided paracentesis, with removal of 4.1 liters of clear serous fluid.
== END 2020-07-15 16:02 | disposition home or self-care (01) ==
LOC: RADPROMAIN 12:38
PROVIDERS: ATTEND Family Medicine
DX: R18.8 Other ascites (principal)
CPT/HCPCS: 49083; P9047

== ENCOUNTER → 2020-07-15 | Day surgery (SDC) | payer MEDICARE, OTHER ==
[2020-07-14 08:58] VITALS: BMI 37.1
[2020-07-15 13:17] LABS: Glucose,Whole Blood 257 mg/dL (75-99)
[2020-07-15 13:44] LABS: HCT 29.3 % (34.0-46.0); HGB 10.1 gm/dL (11.4-16.0); MCH 30.9 pg (25.0-35.0); MCHC 34.4 g/dL (31.0-37.0); MCV 89.8 fL (80.0-100.0); Mean Platelet Volume 8.8; RBC 3.26 m/uL (3.80-5.40); RDW 13.3 % (11.5-15.5); WBC 3.9 k/uL (3.8-10.6)
[2020-07-15 13:52] LABS: Prothrombin Time 10.5 sec (9.0-12.0)
[2020-07-15 13:53] LABS: Calcium 8.2 mg/dL (8.4-10.2); Potassium 4.5 mmol/L (3.5-5.1)
[2020-07-15 14:15] LABS: Platelet Count 73 k/uL (150-450)
== END ==
LOC: CATHCVL 12:44
PROVIDERS: ATTEND Radiology Diagnostic Radiology
DX: Z45.2 Encounter for adjustment and management of vascular access device (principal); R69 Illness, unspecified
CPT/HCPCS: 36410; 76937; 80048; 85027; 85610

== ENCOUNTER 2021-02-25 11:40 | Day surgery (SDC) | payer MEDICARE, OTHER ==
[2021-02-25 12:20] LABS: Glucose,Whole Blood 172 mg/dL (75-99)
[2021-02-25 12:26] LABS: Mean Platelet Volume 8.6
[2021-02-25 12:36] LABS: Prothrombin Time 10.5 sec (9.0-12.0)
[2021-02-25 12:41] VITALS: TEMP 99.1
[2021-02-25 14:02] LABS: Platelet Count 80 k/uL (150-450)
[2021-02-25] MEDS: ALBUMIN HUMAN 25% 50 ML in EMPTY BAG 1 BAG IVPB SCH ×4 (14:05→14:37)
--- NOTE | 2021-02-25 15:13 | US ---
EXAMINATION TYPE: US paracentesis abd w/image DATE OF EXAM: 02/25/2021 COMPARISON: NONE HISTORY: Ascites. PROCEDURE: Maximal barrier technique was utilized. The skin overlying a suitable pocket of fluid was localized with ultrasound and the overlying skin was prepped and draped. Ultrasound was utilized with sterile technique. Lidocaine was used for local anesthesia and a skin nancy made with a scalpel. Catheter was advanced under direct ultrasound guidance into a suitable pocket of fluid and approximately 6.9 liter s of serous fluid were removed. Catheter was withdrawn and hemostasis achieved. There is no immedia te complication; the patient is discharged in stable condition. IMPRESSION: STATUS POST ULTRASOUND GUIDED PARACENTESIS FOR PALLIATION OF ASCITES. THIS PROCEDURE WA S PERFORMED BY THE UNDERSIGNED.
[2021-02-25 15:25] VITALS: BP 154/73; PULSE 72; RESP 16
== END 2021-02-25 15:20 | disposition home or self-care (01) ==
LOC: RADPROMAIN 11:40
PROVIDERS: ATTEND Family Medicine
DX: R18.8 Other ascites (principal)
CPT/HCPCS: 36410; 76937; 82565; 82947; 85049; 85610; 49083; P9047

== ENCOUNTER → 2021-04-05 | Outpatient (CLI) | payer MEDICARE, OTHER ==
--- NOTE | 2021-04-06 07:58 | CT ---
EXAMINATION TYPE: CT abdomen wo con DATE OF EXAM: 04/05/2021 COMPARISON: 08/31/2017 HISTORY: cirrhosis of liver CT DLP: 1332.30 mGycm Examination of the solid and hollow viscera is limited given the lack of contrast. Unenhanced CT of the abdomen was performed. The lack of intravenous and GI contrast limits evaluation . FINDINGS: LUNG BASES: No evidence for nodule. No evidence for infiltrate. LIVER/GB: The liver is diminutive in size with a nodular peripheral contour compatible with cirrhotic liver disease. The gallbladder is surgically absent. No obvious space-occupying lesion is observed. PANCREAS: No pancreatic mass identified. No inflammatory process seen. SPLEEN: There is evidence of splenomegaly with craniocaudal measurement of 18 cm. No intrasplenic les ions seen. ADRENALS: No adrenal nodules identified. No evidence for thickening. KIDNEYS: Hypoattenuating renal lesions may reflect cysts. Lack of contrast limits evaluation. No neph rolithiasis. No hydronephrosis. BOWEL: Appendix has a normal appearance. No evidence of bowel obstruction. No inflammatory process. Lymph nodes: No evidence for adenopathy greater than 1 cm. Abdominal aorta: Atheromatous changes seen. No evidence for aneurysm. Genital organs: No significant abnormality. Other: Redemonstrated is a large amount of the ascites throughout the abdomen and the visualized port ions of the[. IMPRESSION: 1. Cirrhotic liver disease with splenomegaly and a large amount of ascites.
== END | disposition home or self-care (01) ==
LOC: RADCTMAIN 17:32
PROVIDERS: ATTEND Family Medicine
DX: K74.60 Unspecified cirrhosis of liver (principal); R16.1 Splenomegaly, not elsewhere classified; R18.8 Other ascites; B18.0 Chronic viral hepatitis B with delta-agent; M00-M99 Diseases of the musculoskeletal system and connective tissue
CPT/HCPCS: 74150

== ENCOUNTER 2021-04-27 12:08 | Day surgery (SDC) | payer MEDICARE, OTHER ==
[2021-04-27 13:35] LABS: Mean Platelet Volume 8.5
[2021-04-27 13:38] LABS: Platelet Count 86 k/uL (150-450)
[2021-04-27 13:42] LABS: INR 0.9 (<1.2); Prothrombin Time 10.1 sec (9.0-12.0)
[2021-04-27 14:05] VITALS: RESP 16; TEMP 98.1
[2021-04-27] MEDS: ALBUMIN HUMAN 25% 50 ML in EMPTY BAG 1 BAG IVPB SCH ×4 (14:48→15:46)
[2021-04-27 16:33] VITALS: BP 152/78; PULSE 76
--- NOTE | 2021-04-27 20:01 | US ---
EXAMINATION TYPE: US paracentesis abd w/image DATE OF EXAM: 04/27/2021 COMPARISON: NONE HISTORY: Ascites. PROCEDURE: Maximal barrier technique was utilized. The skin overlying a suitable pocket of fluid was localized with ultrasound and the overlying skin was prepped and draped. Ultrasound was utilized with sterile technique. Lidocaine was used for local anesthesia and a skin nancy made with a scalpel. Catheter was advanced under direct ultrasound guidance into a suitable pocket of fluid and approximately 7.2 liter s of serous fluid were removed. Catheter was withdrawn and hemostasis achieved. There is no immedia te complication; the patient is discharged in stable condition. IMPRESSION: STATUS POST ULTRASOUND GUIDED PARACENTESIS FOR PALLIATION OF ASCITES. THIS PROCEDURE WA S PERFORMED BY THE UNDERSIGNED.
[2021-04-28 03:01] LABS: Hepatitis B Core IgM Non-Reactive (Non-Reactive); Hepatitis B Surface Antigen Non-Reactive (Non-Reactive); Hepatitis C IgG Antibody Reactive (Non-Reactive)
[2021-04-29 16:25] LABS: Hepatitis A Antibody IgM Non-Reactive (Non-Reactive)
== END 2021-04-27 16:15 | disposition home or self-care (01) ==
LOC: RADPROMAIN 12:08 → CATHCVL 16:15
PROVIDERS: ATTEND Family Medicine
DX: R18.8 Other ascites (principal)
CPT/HCPCS: 49083; 36410; 76937; 80074; 82140; 82565; 82947; 85049; 85610; 36415; P9047

== ENCOUNTER 2021-09-23 07:17 | Day surgery (SDC) | payer MEDICARE, OTHER ==
[~2021-09-23 07:17] MED LIST changes: +.fentaNYL (PF) 50 MCG/ML 2 ML AMP ONE; +HEPARIN SODIUM 1,000 UN/ML (10ML VL) ONE; +LIDOCAINE 1% INJ 10MG/ML (20 ML MDV) ONE; -SODIUM BICARB 4% 5 ML VIAL (0.48 MEQ/ML) MISCELLANE PRN; +VERAPAMIL 2.5 MG/ML 2 ML AMP ONE
[2021-09-23 08:28] LABS: Mean Platelet Volume 9.1
[2021-09-23 08:34] VITALS: TEMP 98.2
[2021-09-23 08:34] LABS: Platelet Count 74 k/uL (150-450)
[2021-09-23 08:37] LABS: Prothrombin Time 10.5 sec (9.0-12.0)
[2021-09-23] MEDS: ALBUMIN HUMAN 25% 50 ML in EMPTY BAG 1 BAG IVPB SCH ×4 (10:05→12:32)
[2021-09-23 11:41] VITALS: RESP 18
[2021-09-23 11:44] VITALS: PULSE 86
[2021-09-23 11:52] VITALS: BP 200/83
--- NOTE | 2021-09-23 12:55 | US ---
Ultrasound-guided paracentesis. DATE OF EXAM: 09/23/2021 CLINICAL HISTORY: Ascites The procedure was discussed with the patient. The risks, complications, benefits, and alternatives we re discussed and any questions were answered. Informed consent was obtained. The patient was placed s upine on the ultrasound table and prepped and draped in the usual sterile fashion. All elements of maximal barrier technique were utilized. Under ultrasound guidance, access into the right lower quadrant was obtained, via the paracentesis catheter system and direct ultrasound guidanc e. Approximately 7.8 liters of straw-colored fluid was removed. The patient was stable throughout the pr ocedure and remained stable upon discharge from Department of Radiology. IMPRESSION: Successful paracentesis under ultrasound guidance.
== END 2021-09-23 12:10 | disposition home or self-care (01) ==
LOC: RADPROMAIN 07:17
PROVIDERS: ATTEND Family Medicine
DX: R18.8 Other ascites (principal)
CPT/HCPCS: 36410; 76937; 82565; 82947; 85049; 85610; 87635; 36415; 49083; P9047

== ENCOUNTER 2021-09-23 12:02 | Inpatient (IN) | payer MEDICARE, OTHER ==
--- NOTE | 2021-09-23 13:10 | ED ---
General Adult HPI - General Chief complaint: Recheck/Abnormal Lab/Rx Stated complaint: High BP Time Seen by Provider: 09/23/21 12:10 Source: patient, RN notes reviewed, old records reviewed Mode of arrival: ambulatory Limitations: no limitations - History of Present Illness Initial comments: This a 61-year-old female who presents emergency department stating that she had a paracentesis today to take fluid off her abdomen after they were done that sugar blood pressure and her blood pressure was elevated. Patient states she normally does not take anything for blood pressure. Patient states she normally takes a diuretic in the morning for fluid retention but she did not take today because asked her not to when she has a paracentesis. Patient states that she has no chest pain or palpitations she denies difficulty breathing shortness of breath. Patient denies any abdominal pain patient denies nausea vomiting diarrhea. Patient denies any fever chills or cough - Related Data Home Medications Medication Instructions Recorded Confirmed Spironolactone [Aldactone] 25 mg PO DAILY 07/06/20 09/23/21 Albuterol Sulfate [Ventolin HFA] 2 puff INHALATION RT-Q8H PRN 07/14/20 09/23/21 oxyCODONE HCL [oxyCODONE HCL (IR)] 10 mg PO Q6H PRN 07/14/20 09/23/21 Furosemide [Lasix] 60 mg PO DAILY 02/25/21 09/23/21 Allergies Allergy/AdvReac Type Severity Reaction Status Date / Time No Known Allergies Allergy Verified 09/23/21 16:41 Review of Systems ROS Statement: Those systems with pertinent positive or pertinent negative responses have been documented in the HPI. ROS Other: All systems not noted in ROS Statement are negative. Past Medical History Past Medical History: Asthma, Diabetes Mellitus, GERD/Reflux, Liver Disease Additional Past Medical History / Comment(s): Hepatitis B & C, end stage liver disease, kidney stones, cryptosporidium positive, Ascites, pancreatitis, gastroparesis. Hx Vertigo, urinary tract infection History of Any Multi-Drug Resistant Organisms: None Reported Past Surgical History: Cholecystectomy, Hysterectomy Additional Past Surgical History / Comment(s): multi large volume paracentesis Past Anesthesia/Blood Transfusion Reactions: Motion Sickness Past Psychological History: No Psychological Hx Reported Smoking Status: Former smoker, Vaper Past Alcohol Use History: None Reported Past Drug Use History: Marijuana - Past Family History Mother Family Medical History: Cancer Additional Family Medical History / Comment(s): breast with mets Father Family Medical History: Cancer Additional Family Medical History / Comment(s): prostate and colon ca General Exam - General Exam Comments Initial Comments: GENERAL: Patient is well-developed and well-nourished. Patient is nontoxic and well- hydrated and is in no acute distress. ENT: Neck is soft and supple. No significant lymphadenopathy is noted. Oropharynx is clear. Moist mucous membranes. Neck has full range of motion without eliciting any pain. EYES: The sclera were anicteric and conjunctiva were pink and moist. Extraocular movements were intact and pupils were equal round and reactive to light. Eyelids were unremarkable. PULMONARY: Unlabored respirations. Good breath sounds bilaterally. No audible rales rhonchi or wheezing was noted. CARDIOVASCULAR: There is a regular rate and rhythm without any murmurs gallops or rubs. ABDOMEN: Soft and nontender with normal bowel sounds. SKIN: Skin is clear with no lesions or rashes and otherwise unremarkable. NEUROLOGIC: Patient is alert and oriented x3. Cranial nerves II through XII are grossly intact. Motor and sensory are also intact. Normal speech, volume and content. Symmetrical smile. MUSCULOSKELETAL: Normal extremities with adequate strength and full range of motion. No lower extremity swelling or edema. No calf tenderness. LYMPHATICS: No significant lymphadenopathy is noted PSYCHIATRIC: Normal psychiatric evaluation. Limitations: no limitations Course Vital Signs 09/23/21 09/23/21 09/23/21 12:08 12:33 13:00 Temperature 98 F Pulse Rate 93 86 84 Respiratory 18 Rate Blood Pressure 223/74 201/79 O2 Sat by Pulse 97 98 Oximetry 09/23/21 09/23/21 09/23/21 14:30 15:00 15:30 Temperature Pulse Rate 74 84 81 Respiratory Rate Blood Pressure 197/80 191/77 204/91 O2 Sat by Pulse Oximetry 09/23/21 09/23/21 09/23/21 16:00 16:31 17:00 Temperature Pulse Rate 92 68 Respiratory 18 Rate Blood Pressure 205/81 198/67 187/64 O2 Sat by Pulse 99 Oximetry 09/23/21 09/23/21 09/23/21 17:25 17:30 18:00 Temperature Pulse Rate Respiratory Rate Blood Pressure 172/76 172/73 163/52 O2 Sat by Pulse Oximetry 09/23/21 09/23/21 09/23/21 18:30 19:00 19:58 Temperature 98.7 F Pulse Rate 75 Respiratory 15 Rate Blood Pressure 152/50 151/58 144/78 O2 Sat by Pulse 97 Oximetry Medical Decision Making - Medical Decision Making EKG shows normal sinus rhythm at 86 bpm MD interval is 186 QRS is 86 Q-T intervals 380 QTC is 464. Patient's EKG shows no ST segment elevation or depre ssion. I will begin to the room to reevaluate the patient and patient was now complaining of being anxious having some left upper quadrant abdominal pain and being very nauseated. Patient states she feels worse and she did when she originally came. Patient did already receive hydralazine 30 mg total. She remains elevated CT of the abdomen and pelvis shows splenomegaly and some ascites Repeat EKG was done because she was complaining of some left upper quadrant abdominal pain patient's EKG shows normal sinus rhythm at 94 bpm MD interval is 182 QRS is 68 QT interval 382 QTC is 477. Patient's EKG shows no ST segment elevation or depression. - Lab Data Result diagrams: 09/23/21 13:21 09/23/21 14:10 Lab Results 09/23/21 09/23/21 09/23/21 Range/Units 13:21 14:10 14:10 WBC 3.4 L (3.8-10.6) k/uL RBC 2.67 L (3.80-5.40) m/uL Hgb 8.0 L (11.4-16.0) gm/dL Hct 24.9 L (34.0-46.0) % MCV 93.1 (80.0-100.0) fL MCH 30.0 (25.0-35.0) pg MCHC 32.2 (31.0-37.0) g/dL RDW 13.9 (11.5-15.5) % Plt Count 76 L (150-450) k/uL MPV 9.5 Neutrophils % 86 % Lymphocytes % 6 % Monocytes % 5 % Eosinophils % 2 % Basophils % 0 % Neutrophils # 2.9 (1.3-7.7) k/uL Lymphocytes # 0.2 L (1.0-4.8) k/uL Monocytes # 0.2 (0-1.0) k/uL Eosinophils # 0.1 (0-0.7) k/uL Basophils # 0.0 (0-0.2) k/uL Hypochromasia Slight PT 10.5 (9.0-12.0) sec INR 1.0 (<1.2) APTT 21.3 L (22.0-30.0) sec Sodium 141 (137-145) mmol/L Potassium 5.1 (3.5-5.1) mmol/L Chloride 109 H (98-107) mmol/L Carbon Dioxide 23 (22-30) mmol/L Anion Gap 9 mmol/L BUN 34 H (7-17) mg/dL Creatinine 2.66 H (0.52-1.04) mg/dL Est GFR (CKD-EPI)AfAm 21 (>60 ml/min/1.73 sqM) Est GFR (CKD-EPI)NonAf 18 (>60 ml/min/1.73 sqM) Glucose 144 H (74-99) mg/dL POC Glucose (mg/dL) (75-99) mg/dL POC Glu Dye Blender ID Calcium 8.4 (8.4-10.2) mg/dL Magnesium 1.9 (1.6-2.3) mg/dL Total Bilirubin 0.6 (0.2-1.3) mg/dL AST 43 H (14-36) U/L ALT 19 (4-34) U/L Alkaline Phosphatase 54 (38-126) U/L Troponin I (0.000-0.034) ng/mL Total Protein 7.1 (6.3-8.2) g/dL Albumin 3.3 L (3.5-5.0) g/dL Coronavirus (PCR) (Not Detectd) 09/23/21 09/23/21 09/23/21 Range/Units 14:10 17:04 17:43 WBC (3.8-10.6) k/uL RBC (3.80-5.40) m/uL Hgb (11.4-16.0) gm/dL Hct (34.0-46.0) % MCV (80.0-100.0) fL MCH (25.0-35.0) pg MCHC (31.0-37.0) g/dL RDW (11.5-15.5) % Plt Count (150-450) k/uL MPV Neutrophils % % Lymphocytes % % Monocytes % % Eosinophils % % Basophils % % Neutrophils # (1.3-7.7) k/uL Lymphocytes # (1.0-4.8) k/uL Monocytes # (0-1.0) k/uL Eosinophils # (0-0.7) k/uL Basophils # (0-0.2) k/uL Hypochromasia PT (9.0-12.0) sec INR (<1.2) APTT (22.0-30.0) sec Sodium (137-145) mmol/L Potassium (3.5-5.1) mmol/L Chloride (98-107) mmol/L Carbon Dioxide (22-30) mmol/L Anion Gap mmol/L BUN (7-17) mg/dL Creatinine (0.52-1.04) mg/dL Est GFR (CKD-EPI)AfAm (>60 ml/min/1.73 sqM) Est GFR (CKD-EPI)NonAf (>60 ml/min/1.73 sqM) Glucose (74-99) mg/dL POC Glucose (mg/dL) 142 H (75-99) mg/dL POC Glu Dye Blender ID Tiffani Alvarez Calcium (8.4-10.2) mg/dL Magnesium (1.6-2.3) mg/dL Total Bilirubin (0.2-1.3) mg/dL AST (14-36) U/L ALT (4-34) U/L Alkaline Phosphatase (38-126) U/L Troponin I 0.016 (0.000-0.034) ng/mL Total Protein (6.3-8.2) g/dL Albumin (3.5-5.0) g/dL Coronavirus (PCR) Not Detected (Not Detectd) Disposition Clinical Impression: Hypertensive urgency, Abdominal pain, Nausea Disposition: ADMITTED IP TO THIS [facility] Time of Disposition: 19:17
[2021-09-23 13:25] LABS: Basophils % (A) 0 %; Eosinophils # (A) 0.1 k/uL (0-0.7); Eosinophils % (A) 2 %; HCT 24.9 % (34.0-46.0); Hypochromasia Slight; Lymphocytes # (A) 0.2 k/uL (1.0-4.8); Lymphocytes % (A) 6 %; MCHC 32.2 g/dL (31.0-37.0); MCV 93.1 fL (80.0-100.0); Mean Platelet Volume 9.5; Monocytes # (A) 0.2 k/uL (0-1.0); Monocytes % (A) 5 %; Neutrophils # (A) 2.9 k/uL (1.3-7.7); Neutrophils % (A) 86 %; RBC 2.67 m/uL (3.80-5.40); RDW 13.9 % (11.5-15.5); WBC 3.4 k/uL (3.8-10.6)
[2021-09-23 13:31] LABS: Platelet Count 76 k/uL (150-450)
[2021-09-23] MEDS ORDERED: hydrALAZINE HCL 20 MG/ML 1 ML VIAL IM STA (13:38)
--- NOTE | 2021-09-23 13:58 | XR ---
EXAMINATION TYPE: XR chest 2V DATE OF EXAM: 09/23/2021 COMPARISON: 04/01/2016 HISTORY: 61-year-old female with chest pain TECHNIQUE: AP and lateral views FINDINGS: Heart upper limits of normal in size. Atherosclerotic arch calcifications. Mild interstitial prominen ce may partly chronic. No consolidation or pleural effusion. IMPRESSION: Mild interstitial prominence may reflect bronchitis or asthma. Otherwise, no acute process seen.
[2021-09-23] MEDS: hydrALAZINE HCL 20 MG/ML 1 ML VIAL IVP STA ×2 (14:02→14:16)
[2021-09-23 14:42] LABS: Albumin 3.3 g/dL (3.5-5.0); Calcium 8.4 mg/dL (8.4-10.2); Magnesium 1.9 mg/dL (1.6-2.3); Potassium 5.1 mmol/L (3.5-5.1); Total Bilirubin 0.6 mg/dL (0.2-1.3); Total Protein 7.1 g/dL (6.3-8.2)
[2021-09-23] MEDS ORDERED: hydrALAZINE HCL 20 MG/ML 1 ML VIAL IVP STA (15:55)
[2021-09-23 16:09] LABS: Partial Thromboplastin Time 21.3 sec (22.0-30.0); Prothrombin Time 10.5 sec (9.0-12.0)
[2021-09-23] MEDS ORDERED: ONDANSETRON 4 MG/2 ML VIAL IVP STA (16:47)
[2021-09-23] MEDS ORDERED: LORazepam 2 MG/ML INJ IV STA (16:47)
[2021-09-23 17:45] LABS: Glucose,Whole Blood 142 mg/dL (75-99)
[2021-09-23] MEDS ORDERED: LABETALOL 5 MG/ML VIAL MDV IVP STA (18:16)
--- NOTE | 2021-09-23 18:21 | CT ---
EXAMINATION TYPE: CT abdomen pelvis wo con DATE OF EXAM: 09/23/2021 COMPARISON: 04/05/2021 HISTORY: high blood pressure post paracentesis CT DLP: 1397 mGycm Automated exposure control for dose reduction was used. TECHNIQUE: Helical acquisition of images was performed from the lung bases through the pelvis. FINDINGS: Without IV contrast, there is limited CT sensitivity for visceral and vascular findings. LUNG BASES: No acute findings. Coronary calcifications noted. LIVER/GB: The liver is diminutive in size with a nodular peripheral contour compatible with cirrhotic liver disease. The gallbladder is surgically absent. PANCREAS: No significant abnormality is seen. SPLEEN: There is splenomegaly with craniocaudal measurement of 18 cm. No intrasplenic lesions seen. ADRENALS: No significant abnormality is seen. KIDNEYS: Hypoattenuating renal lesions redemonstrated, likely cysts. Lack of contrast limits evaluati on. No nephrolithiasis. No hydronephrosis. PERITONEAL CAVITY: There is a moderate volume of ascites in all 4 quadrants of the abdomen and pelvis . No pneumoperitoneum. RETROPERITONEAL ADENOPATHY: None visualized REPRODUCTIVE ORGANS: No significant abnormality is seen URINARY BLADDER: No significant abnormality is seen. PELVIC ADENOPATHY: None visualized. OSSEOUS STRUCTURES: No significant abnormality is seen. BOWEL: No significant abnormality is seen. IMPRESSION: CIRRHOSIS WITH MODERATE SPLENOMEGALY AND ASCITES.
[2021-09-24 09:26] LABS: Glucose,Whole Blood 120 mg/dL (75-99)
[2021-09-24] MEDS ORDERED: ALBUTEROL NEBULIZED 2.5 MG/3 ML INHALATION PRN (13:08)
[2021-09-24] MEDS ORDERED: hydrALAZINE HCL 25 MG TAB PO SCH (13:15)
[2021-09-24] MEDS: PANTOPRAZOLE 40 MG/10 ML VIAL IVP SCH (13:32)
[2021-09-24] MEDS: SPIRONOLACTONE 25 MG TAB PO SCH (13:32)
[2021-09-24] MEDS: FUROSEMIDE 20 MG TAB PO SCH (13:32)
[2021-09-24] MEDS: amLODIPine 5 MG TAB PO SCH (18:04)
[2021-09-24] MEDS: hydrALAZINE HCL 50 MG TAB PO SCH ×2 (18:05→19:52)
--- NOTE | 2021-09-24 18:09 | P.HPIM ---
History of Present Illness H&P Date: 09/24/21 Chief Complaint: patient underwent paracentesis for ascites, developed unco ntrolled HTN Mrs. Wilcox is a well-known 61-year-old female pleasant, with a long-standing history of hepatitis C I believe with end-stage liver disease significant ascites patient undergoes paracentesis at monthly or bimonthly intervals for gross ascites. Was brought to the emergency room at [facility] from the procedure area at [facility], after developing hypertensive urgency s econdary to or during paracentesis. Emergency room physician was unable to control blood pressure without significant use of multiple medications and determine the need to at least call me and admit patient as a hypertensive urgency for management of hypertension patient complained of mild headache no nausea no vomiting mild abdominal pain mild mid epigastric tenderness consistent with intermittent regurg no fever Review of Systems Constitutional: Reports as per HPI, Reports lethargy, Reports weight loss Ears, nose, mouth and throat: Reports as per HPI Cardiovascular: Reports as per HPI Respiratory: Reports as per HPI (Significant ascites ,end-stage liver disease) Genitourinary: Reports as per HPI Menstruation: Reports as per HPI Musculoskeletal: Reports as per HPI Integumentary: Reports as per HPI Neurological: Reports as per HPI Psychiatric: Reports as per HPI (Known long-term history of hepatitis) Past Medical History Past Medical History: Asthma, Diabetes Mellitus, GERD/Reflux, Liver Disease Additional Past Medical History / Comment(s): Hepatitis B & C, end stage liver disease, kidney stones, cryptosporidium positive, Ascites, pancreatitis, gastr oparesis. Hx Vertigo, urinary tract infection, clotting disorder, multiple hernia History of Any Multi-Drug Resistant Organisms: None Reported Past Surgical History: Cholecystectomy, Hysterectomy Additional Past Surgical History / Comment(s): multi large volume paracentesis Past Anesthesia/Blood Transfusion Reactions: Motion Sickness Past Psychological History: No Psychological Hx Reported Smoking Status: Former smoker, Vaper Past Alcohol Use History: None Reported Additional Past Alcohol Use History / Comment(s): Smoked 10 years est, quit 1979 Past Drug Use History: Marijuana Additional Drug Use History / Comment(s): occ use of marijuana vape pen - Past Family History Mother Family Medical History: Cancer Additional Family Medical History / Comment(s): breast with mets Father Family Medical History: Cancer Additional Family Medical History / Comment(s): prostate and colon ca Medications and Allergies Home Medications Medication Instructions Recorded Confirmed Type Spironolactone [Aldactone] 25 mg PO DAILY 07/06/20 09/23/21 History Albuterol Sulfate [Ventolin HFA] 2 puff INHALATION RT-Q8H PRN 07/14/20 09/23/21 History oxyCODONE HCL [oxyCODONE HCL (IR)] 10 mg PO Q6H PRN 07/14/20 09/23/21 History Furosemide [Lasix] 60 mg PO DAILY 02/25/21 09/23/21 History Allergies Allergy/AdvReac Type Severity Reaction Status Date / Time No Known Allergies Allergy Verified 09/23/21 16:41 Physical Exam Osteopathic Statement: *. No significant issues noted on an osteopathic structural exam other than those noted in the History and Physical/Consult. Vitals: Vital Signs Temp Pulse Resp BP BP Pulse Ox 09/24/21 13:34 190/73 09/24/21 09:28 97.9 F 95 16 193/64 97 09/24/21 06:03 88 16 155/75 98 09/23/21 19:58 98.7 F 75 15 144/78 97 09/23/21 19:00 151/58 09/23/21 18:30 152/50 09/23/21 18:00 163/52 Intake and Output 09/24/21 09/24/21 09/24/21 06:59 14:59 22:59 Other: Weight 99.79 kg General: [Patient awake, alert and oriented times 3. Patient in no acute distress.] HEENT: [PERRL. EOMI. No pharyngeal erythema or exudate.] Neck: [No adenopathy.] Cardiac: [Heart regular in rate and rhythm. No S3. No S4. No clicks, rubs. No murmur.] Lungs: [Clear to auscultation bilaterally.] Abdomen: [Liver palpated 4-1/2 almost 5 inches below ribs spleen is palpable Bowel sounds presnt and normoactive in all 4 quadrants. Round protruding abdomen with extensive fluid wave consistent with gross ascites, multiple ventral hernias Extremes: [No edema no cyanosis no claudication normal pulses] : Normal female genitalia Musculoskeletal: [No joint erythema, edema or tenderness.] Skin: [No rash.] Neurologic: [No lateralizing deficits. CN II - XII grossly intact.] Lymphatic: [No adenopathy.] Results CBC & Chem 7: 09/23/21 13:21 09/23/21 14:10 Labs: Abnormal Lab Results - Last 24 Hours (Table) 09/24/21 Range/Units 09:24 POC Glucose (mg/dL) 120 H (75-99) mg/dL Assessment and Plan (1) Abdominal pain Narrative/Plan: Patient status post paracentesis for gross ascites secondary to hepatitis B and C, known end-stage liver disease Current Visit: Yes Status: Acute Code(s): R10.9 - UNSPECIFIED ABDOMINAL PAIN SNOMED Code(s): 77412046 (2) Hypertensive urgency Narrative/Plan: Significant increase in blood pressure added hydralazine 25 mg 1 by mouth 3 times a day Start Norvasc 5 mg 1 by mouth daily Continue spironolactone 25 mg 1 by mouth daily Current Visit: Yes Status: Acute Code(s): I16.0 - HYPERTENSIVE URGENCY SNOMED Code(s): 587216790 (3) Nausea Narrative/Plan: Patient given Zofran, nausea resolved Current Visit: Yes Status: Acute Code(s): R11.0 - NAUSEA SNOMED Code(s): 024621700 Plan: Patient is currently on hydralazine 25 mg 3 times daily, secondary to renal insufficiency, for hypertension Started Norvasc 5 mg 1 by mouth daily for hypertension Continue spironolactone 25 mg 1 by mouth daily for hypertension for edema or ascites or liver disease I pressure control improved Anticipate discharge home tomorrow Time with Patient: Greater than 30
[2021-09-24 19:31] VITALS: RESP 18
[2021-09-24] MEDS: hydrALAZINE HCL 25 MG TAB PO SCH (20:10)
[2021-09-25 07:46] VITALS: BP 121/61; PULSE 91; TEMP 98
[2021-09-25] MEDS: amLODIPine 5 MG TAB PO SCH (08:04)
[2021-09-25] MEDS: PANTOPRAZOLE 40 MG/10 ML VIAL IVP SCH (08:04)
[2021-09-25] MEDS: FUROSEMIDE 20 MG TAB PO SCH (08:04)
[2021-09-25] MEDS: hydrALAZINE HCL 25 MG TAB PO SCH (08:04)
[2021-09-25] MEDS: SPIRONOLACTONE 25 MG TAB PO SCH (08:04)
[2021-09-25] MEDS ORDERED: PANTOPRAZOLE 40 MG TABLET PO SCH (09:15)
--- NOTE | 2021-09-25 13:03 | P.DS ---
Providers Date of admission: 09/24/21 13:27 Expected date of discharge: 09/25/21 Attending physician: Jordy Rios Primary care physician: Jordy Rios - Discharge Diagnosis(es) (1) Abdominal pain Current Visit: Yes Status: Acute (2) Hypertensive urgency Current Visit: Yes Status: Acute (3) Nausea Current Visit: Yes Status: Acute Hospital Course: Developed hypertensive urgency and the procedure area at [facility] yesterday following paracentesis General: [Patient awake, alert and oriented times 3. Patient in no acute distress.] HEENT: [PERRL. EOMI. No pharyngeal erythema or exudate.] Neck: [No adenopathy.] Cardiac: [Heart regular in rate and rhythm. No S3. No S4. No clicks, rubs. No murmur.] Lungs: [Clear to auscultation bilaterally.] Abdomen: Large firm round abdomen consistent with gross ascites secondary to end-stage liver disease Bowel sounds presnt and normoactive in all 4 quadrants.] Extremes: [No edema no cyanosis no claudication normal pulses] : Normal female genitalia Musculoskeletal: [No joint erythema, edema or tenderness.] Skin: [No rash.] Neurologic: [No lateralizing deficits. CN II - XII grossly intact.] Lymphatic: [No adenopathy.] Assessment: Blood pressure well controlled This patient is discharged to home on Hydralazine 25 mg 1 by mouth 3 times daily, for hypertension, due to renal insufficiency Norvasc 5 mg 1 by mouth daily by mouth for hypertension Spironolactone potassium sparing diuretic 25 mg 1 by mouth daily for hypertension and fluid retention secondary to liver disease Will discharge patient home now with instructions to follow-up in the office Monday or Monday next week Patient Condition at Discharge: Fair Plan - Discharge Summary Discharge Rx Participant: Yes New Discharge Prescriptions: New hydrALAZINE HCL [Apresoline] 25 mg PO TID #90 tab amLODIPine [Norvasc] 5 mg PO DAILY #30 tab No Action Spironolactone [Aldactone] 25 mg PO DAILY oxyCODONE HCL [oxyCODONE HCL (IR)] 10 mg PO Q6H PRN PRN Reason: Pain Albuterol Sulfate [Ventolin HFA] 2 puff INHALATION RT-Q8H PRN PRN Reason: Shortness Of Breath Furosemide [Lasix] 60 mg PO DAILY Discharge Medication List Spironolactone [Aldactone] 25 mg PO DAILY 07/06/20 [History] Albuterol Sulfate [Ventolin HFA] 2 puff INHALATION RT-Q8H PRN 07/14/20 [History] oxyCODONE HCL [oxyCODONE HCL (IR)] 10 mg PO Q6H PRN 07/14/20 [History] Furosemide [Lasix] 60 mg PO DAILY 02/25/21 [History] amLODIPine [Norvasc] 5 mg PO DAILY #30 tab 09/25/21 [Rx] hydrALAZINE HCL [Apresoline] 25 mg PO TID #90 tab 09/25/21 [Rx] Follow up Appointment(s)/Referral(s): Jordy Rios Jr, [Primary Care Provider] - 1-2 days
== END 2021-09-25 15:18 | disposition home health service (06) | DRG 305 ==
LOC: EC 12:02 → 6NMEDSUR 19:18 → OBSVTOIN 09-24 13:27
PROVIDERS: ADMIT Family Medicine; ATTEND Family Medicine
DX: I16.0 Hypertensive urgency (principal); R18.8 Other ascites; B19.10 Unspecified viral hepatitis B without hepatic coma; R10.9 Unspecified abdominal pain; E11.43 Type 2 diabetes mellitus with diabetic autonomic (poly)neuropathy; K31.84 Gastroparesis; B18.2 Chronic viral hepatitis C; I10 Essential (primary) hypertension; J45.909 Unspecified asthma, uncomplicated; K72.10 Chronic hepatic failure without coma; N28.9 Disorder of kidney and ureter, unspecified; Z79.899 Other long term (current) drug therapy; Z80.0 Family history of malignant neoplasm of digestive organs; Z87.442 Personal history of urinary calculi; Z87.891 Personal history of nicotine dependence; Z90.710 Acquired absence of both cervix and uterus
CPT/HCPCS: 36415; 71046; 74176; 76937; 80053; 82565; 82947; 83735; 84484; 85025; 85049; 85610; 85730; 87635; 93005; 96374; 96375; 96376; 99285

== ENCOUNTER 2022-01-02 11:41 | Inpatient (IN) | payer MEDICARE, OTHER ==
[2022-01-02 12:27] LABS: Basophils % (A) 0 %; Eosinophils # (A) 0.1 k/uL (0-0.7); Eosinophils % (A) 1 %; HCT 26.7 % (34.0-46.0); HGB 8.3 gm/dL (11.4-16.0); Lymphocytes # (A) 0.3 k/uL (1.0-4.8); Lymphocytes % (A) 5 %; MCHC 31.1 g/dL (31.0-37.0); MCV 89.9 fL (80.0-100.0); Mean Platelet Volume 9.4; Monocytes # (A) 0.4 k/uL (0-1.0); Monocytes % (A) 7 %; Neutrophils # (A) 4.9 k/uL (1.3-7.7); Neutrophils % (A) 86 %; RBC 2.97 m/uL (3.80-5.40); RDW 15.9 % (11.5-15.5); WBC 5.7 k/uL (3.8-10.6)
[2022-01-02 12:35] LABS: Platelet Count 83 k/uL (150-450)
[2022-01-02 12:37] LABS: Anisocytosis (M) Present
[2022-01-02 12:38] LABS: Poikilocytosis (M) Present
[2022-01-02 12:41] LABS: Prothrombin Time 11.1 sec (9.0-12.0)
[2022-01-02 12:45] LABS: Albumin 3.1 g/dL (3.5-5.0); Calcium 8.2 mg/dL (8.4-10.2); Potassium 5.2 mmol/L (3.5-5.1); Total Bilirubin 0.7 mg/dL (0.2-1.3); Total Protein 7.6 g/dL (6.3-8.2)
[2022-01-02 12:51] LABS: Partial Thromboplastin Time 19.5 sec (22.0-30.0)
--- NOTE | 2022-01-02 13:11 | XR ---
EXAMINATION TYPE: XR chest 2V DATE OF EXAM: 01/02/2022 COMPARISON: 09/23/2021 INDICATION: Cough, pain TECHNIQUE: Frontal and lateral views of the chest are obtained. FINDINGS: The heart size is normal. The pulmonary vasculature is normal. The lungs are clear. IMPRESSION: 1. No acute pulmonary process.
[2022-01-02 13:12] LABS: Phosphorus 4.9 mg/dL (2.5-4.5)
[2022-01-02 14:10] LABS: Amorphous Sediment,Urine Moderate /hpf; Appearance,Urine Cloudy (Clear); Bacteria,Urine Rare /hpf; Bilirubin,Urine Negative (Negative); Blood,Urine Trace (Negative); Color,Urine Yellow; Glucose,Urine (UA) Negative (Negative); Hyaline Casts,Urine 3 /lpf (0-2); Ketones,Urine Negative (Negative); Leukocyte Esterase,Urine Negative (Negative); Mucus,Urine Rare /hpf; Nitrite,Urine Negative (Negative); Protein,Urine 3+ (Negative); RBC,Urine 4 /hpf (0-5); Specific Gravity,Urine 1.012 (1.001-1.035); Squamous Epithelial Cell,Urine <1 /hpf (0-4); Urobilinogen,Urine <2.0 mg/dL (<2.0); WBC,Urine 7 /hpf (0-5)
--- NOTE | 2022-01-02 14:39 | ED ---
General Adult HPI - General Chief complaint: Arrhythmia/Palpitations Stated complaint: General Illness Time Seen by Provider: 01/02/22 11:50 Source: patient, EMS Mode of arrival: EMS Limitations: no limitations - History of Present Illness Initial comments: 61-year-old female with past medical history of Hep B and C, end-stage liver disease, chronic kidney disease presents to the emergency department with palpitations, pressure and generally not feeling well. States that she continues to have worsening kidney failure and was following up with Dr. Witt. He recommended that she go into the emergency department for accelerated hypertension. Patient has been on several medications for hypertension however does not sound like she takes them consistently. Patient reported that she took her medications as directed yesterday however medication bottles in room were prescribed in 2018. She has felt generally weak with difficulties in ambulation . Reports to nausea with poor appetite and decreased urine intake. No sick contacts with similar symptoms. No fevers. Denies shortness of breath. No abdominal pain. Last paracentesis was in September. Reports that she was supposed to have another appointment however she failed to show. No other alleviating, precipitating or modifying factors - Related Data Home Medications Medication Instructions Recorded Confirmed Spironolactone [Aldactone] 25 mg PO DAILY 07/06/20 01/02/22 Albuterol Sulfate [Ventolin HFA] 2 puff INHALATION RT-Q6H PRN 07/14/20 01/02/22 oxyCODONE HCL [oxyCODONE HCL (IR)] 10 mg PO Q6H PRN 07/14/20 01/02/22 Furosemide [Lasix] 20 mg PO DAILY 02/25/21 01/02/22 Budesonide [Pulmicort Flexhaler] 1 puff IN RT-DAILY PRN 01/02/22 01/02/22 Previous Rx's Medication Instructions Recorded Ketorolac 0.5% Ophth Soln [Acular 1 drops BOTH EYES QID ml 01/06/22 0.5%] Metoprolol Tartrate [Lopressor] 50 mg PO BID #90 tab 01/06/22 Sodium Bicarbonate Tab 650 mg PO TID #90 tab 01/06/22 amLODIPine [Norvasc] 10 mg PO DAILY #30 tab 01/06/22 hydrALAZINE HCL [Apresoline] 50 mg PO TID #90 tab 01/06/22 Allergies Allergy/AdvReac Type Severity Reaction Status Date / Time No Known Allergies Allergy Verified 01/02/22 13:40 Review of Systems ROS Statement: Those systems with pertinent positive or pertinent negative responses have been documented in the HPI. ROS Other: All systems not noted in ROS Statement are negative. Past Medical History Past Medical History: Asthma, Diabetes Mellitus, GERD/Reflux, Liver Disease Additional Past Medical History / Comment(s): Hepatitis B & C, end stage liver disease, kidney stones, cryptosporidium positive, Ascites, pancreatitis, gastroparesis. Hx Vertigo, urinary tract infection, clotting disorder, multiple hernia, hypertensive crisis 09/23/21 admitted and disharged on antihypertensive meds but patient states they made her sick and she stopped them. Patient also thinks she had covid in October as she had multiple symptoms and her son had tested positive October 14, 2021. hep b and hep c History of Any Multi-Drug Resistant Organisms: None Reported Past Surgical History: Cholecystectomy, Hysterectomy Additional Past Surgical History / Comment(s): multi large volume paracentesis Past Anesthesia/Blood Transfusion Reactions: Motion Sickness Past Psychological History: No Psychological Hx Reported Smoking Status: Former smoker, Vaper Past Alcohol Use History: None Reported Past Drug Use History: Marijuana - Past Family History Mother Family Medical History: Cancer Additional Family Medical History / Comment(s): breast with mets Father Family Medical History: Cancer Additional Family Medical History / Comment(s): prostate and colon ca General Exam Limitations: no limitations General appearance: alert, anxious, other (resting tremor) Eye exam: Present: scleral icterus ENT exam: Present: mucous membranes dry Respiratory exam: Present: decreased breath sounds. Absent: respiratory distress, chest wall tenderness, accessory muscle use Cardiovascular Exam: Present: normal rhythm, tachycardia GI/Abdominal exam: Present: distended. Absent: guarding, rebound, rigid Extremities exam: Present: full ROM, pedal edema. Absent: tenderness Psychiatric exam: Present: flat affect Skin exam: Present: warm, dry, pallor Course Vital Signs 01/02/22 01/02/22 01/02/22 11:48 11:57 12:00 Temperature 97.5 F L Pulse Rate 106 H 105 H Pulse Rate [ 105 H [employer] Spr[employer]ter ] Respiratory 20 20 Rate Blood Pressure 199/168 179/79 O2 Sat by Pulse 100 99 Oximetry 01/02/22 01/02/22 13:52 15:00 Temperature Pulse Rate 87 86 Pulse Rate [ [employer]ter ] Respiratory 18 20 Rate Blood Pressure 167/72 177/74 O2 Sat by Pulse 99 97 Oximetry EKG Findings - EKG Comments: EKG Findings:: EKG demonstrates a sinus tachycardia with a rate of 106.. Of a 177. QRS 80. QTC of 400. No acute ST segment elevations or depressions concerning for ischemic changes Medical Decision Making - Medical Decision Making Upon arrival patient was placed into room 28. A thorough history and physical exam was performed. IV access established laboratory studies were conducted. Patient has a sinus tachycardia with a rate of 106. She is placed on continuous pulse ox and cardiac monitoring. Blood pressure 199/168. Laboratory studies reveal a bicytopenia. Potassium 5.2. Creatinine up to 3.1. Lactic acid 2.8. I did start the patient on IV fluids at 50 mL/h. Troponin 0.194. Patient's straight cathed for a urine sample which demonstrates rare bacteria. Recommended admission due to her chest pain, NSTEMI, lactic acidosis and worsening kidney function. Paged Dr. Bagley for admission. - Lab Data Result diagrams: 01/11/22 09:00 01/11/22 09:00 Lab Results 01/02/22 01/02/22 01/02/22 Range/Units 11:58 11:58 12:22 WBC 5.7 (3.8-10.6) k/uL RBC 2.97 L (3.80-5.40) m/uL Hgb 8.3 L (11.4-16.0) gm/dL Hct 26.7 L (34.0-46.0) % MCV 89.9 (80.0-100.0) fL MCH 28.0 (25.0-35.0) pg MCHC 31.1 (31.0-37.0) g/dL RDW 15.9 H (11.5-15.5) % Plt Count 83 L (150-450) k/uL MPV 9.4 Neutrophils % 86 % Lymphocytes % 5 % Monocytes % 7 % Eosinophils % 1 % Basophils % 0 % Neutrophils # 4.9 (1.3-7.7) k/uL Lymphocytes # 0.3 L (1.0-4.8) k/uL Monocytes # 0.4 (0-1.0) k/uL Eosinophils # 0.1 (0-0.7) k/uL Basophils # 0.0 (0-0.2) k/uL Manual Slide Review Performed Poikilocytosis (manual Present Anisocytosis (manual) Present PT 11.1 (9.0-12.0) sec INR 1.0 (<1.2) APTT 19.5 L (22.0-30.0) sec Sodium (137-145) mmol/L Potassium (3.5-5.1) mmol/L Chloride (98-107) mmol/L Carbon Dioxide (22-30) mmol/L Anion Gap mmol/L BUN (7-17) mg/dL Creatinine (0.52-1.04) mg/dL Est GFR (CKD-EPI)AfAm (>60 ml/min/1.73 sqM) Est GFR (CKD-EPI)NonAf (>60 ml/min/1.73 sqM) Glucose (74-99) mg/dL Lactic Ac Sepsis Rflx Plasma Lactic Acid José (0.7-2.0) mmol/L Calcium (8.4-10.2) mg/dL Phosphorus (2.5-4.5) mg/dL Magnesium (1.6-2.3) mg/dL Total Bilirubin (0.2-1.3) mg/dL AST (14-36) U/L ALT (4-34) U/L Alkaline Phosphatase (38-126) U/L Troponin I 0.194 H* (0.000-0.034) ng/mL NT-Pro-B Natriuret Pep pg/mL Total Protein (6.3-8.2) g/dL Albumin (3.5-5.0) g/dL Lipase (23-300) U/L Urine Color Urine Appearance (Clear) Urine pH (5.0-8.0) Ur Specific [place] (1.001-1.035) Urine Protein (Negative) Urine Glucose (UA) (Negative) Urine Ketones (Negative) Urine Blood (Negative) Urine Nitrite (Negative) Urine Bilirubin (Negative) Urine Urobilinogen (<2.0) mg/dL Ur Leukocyte Esterase (Negative) Urine RBC (0-5) /hpf Urine WBC (0-5) /hpf Ur Squamous Epith Cells (0-4) /hpf Amorphous Sediment (None) /hpf Urine Bacteria (None) /hpf Hyaline Casts (0-2) /lpf Urine Mucus (None) /hpf 01/02/22 01/02/22 01/02/22 Range/Units 12:22 12:51 12:51 WBC (3.8-10.6) k/uL RBC (3.80-5.40) m/uL Hgb (11.4-16.0) gm/dL Hct (34.0-46.0) % MCV (80.0-100.0) fL MCH (25.0-35.0) pg MCHC (31.0-37.0) g/dL RDW (11.5-15.5) % Plt Count (150-450) k/uL MPV Neutrophils % % Lymphocytes % % Monocytes % % Eosinophils % % Basophils % % Neutrophils # (1.3-7.7) k/uL Lymphocytes # (1.0-4.8) k/uL Monocytes # (0-1.0) k/uL Eosinophils # (0-0.7) k/uL Basophils # (0-0.2) k/uL Manual Slide Review Poikilocytosis (manual Anisocytosis (manual) PT (9.0-12.0) sec INR (<1.2) APTT (22.0-30.0) sec Sodium 138 (137-145) mmol/L Potassium 5.2 H (3.5-5.1) mmol/L Chloride 113 H (98-107) mmol/L Carbon Dioxide 14 L (22-30) mmol/L Anion Gap 11 mmol/L BUN 39 H (7-17) mg/dL Creatinine 3.14 H (0.52-1.04) mg/dL Est GFR (CKD-EPI)AfAm 17 (>60 ml/min/1.73 sqM) Est GFR (CKD-EPI)NonAf 15 (>60 ml/min/1.73 sqM) Glucose 157 H (74-99) mg/dL Lactic Ac Sepsis Rflx Plasma Lactic Acid José (0.7-2.0) mmol/L Calcium 8.2 L (8.4-10.2) mg/dL Phosphorus 4.9 H (2.5-4.5) mg/dL Magnesium 2.0 (1.6-2.3) mg/dL Total Bilirubin 0.7 (0.2-1.3) mg/dL AST 47 H (14-36) U/L ALT 24 (4-34) U/L Alkaline Phosphatase 57 (38-126) U/L Troponin I (0.000-0.034) ng/mL NT-Pro-B Natriuret Pep 3520 pg/mL Total Protein 7.6 (6.3-8.2) g/dL Albumin 3.1 L (3.5-5.0) g/dL Lipase 206 (23-300) U/L Urine Color Urine Appearance (Clear) Urine pH (5.0-8.0) Ur Specific [place] (1.001-1.035) Urine Protein (Negative) Urine Glucose (UA) (Negative) Urine Ketones (Negative) Urine Blood (Negative) Urine Nitrite (Negative) Urine Bilirubin (Negative) Urine Urobilinogen (<2.0) mg/dL Ur Leukocyte Esterase (Negative) Urine RBC (0-5) /hpf Urine WBC (0-5) /hpf Ur Squamous Epith Cells (0-4) /hpf Amorphous Sediment (None) /hpf Urine Bacteria (None) /hpf Hyaline Casts (0-2) /lpf Urine Mucus (None) /hpf 01/02/22 01/02/22 01/02/22 Range/Units 12:51 13:24 13:45 WBC (3.8-10.6) k/uL RBC (3.80-5.40) m/uL Hgb (11.4-16.0) gm/dL Hct (34.0-46.0) % MCV (80.0-100.0) fL MCH (25.0-35.0) pg MCHC (31.0-37.0) g/dL RDW (11.5-15.5) % Plt Count (150-450) k/uL MPV Neutrophils % % Lymphocytes % % Monocytes % % Eosinophils % % Basophils % % Neutrophils # (1.3-7.7) k/uL Lymphocytes # (1.0-4.8) k/uL Monocytes # (0-1.0) k/uL Eosinophils # (0-0.7) k/uL Basophils # (0-0.2) k/uL Manual Slide Review Poikilocytosis (manual Anisocytosis (manual) PT (9.0-12.0) sec INR (<1.2) APTT (22.0-30.0) sec Sodium (137-145) mmol/L Potassium (3.5-5.1) mmol/L Chloride (98-107) mmol/L Carbon Dioxide (22-30) mmol/L Anion Gap mmol/L BUN (7-17) mg/dL Creatinine (0.52-1.04) mg/dL Est GFR (CKD-EPI)AfAm (>60 ml/min/1.73 sqM) Est GFR (CKD-EPI)NonAf (>60 ml/min/1.73 sqM) Glucose (74-99) mg/dL Lactic Ac Sepsis Rflx Y Plasma Lactic Acid José 2.8 H* (0.7-2.0) mmol/L Calcium (8.4-10.2) mg/dL Phosphorus (2.5-4.5) mg/dL Magnesium (1.6-2.3) mg/dL Total Bilirubin (0.2-1.3) mg/dL AST (14-36) U/L ALT (4-34) U/L Alkaline Phosphatase (38-126) U/L Troponin I (0.000-0.034) ng/mL NT-Pro-B Natriuret Pep pg/mL Total Protein (6.3-8.2) g/dL Albumin (3.5-5.0) g/dL Lipase (23-300) U/L Urine Color Yellow Urine Appearance Cloudy H (Clear) Urine pH 6.0 (5.0-8.0) Ur Specific [place] 1.012 (1.001-1.035) Urine Protein 3+ H (Negative) Urine Glucose (UA) Negative (Negative) Urine Ketones Negative (Negative) Urine Blood Trace H (Negative) Urine Nitrite Negative (Negative) Urine Bilirubin Negative (Negative) Urine Urobilinogen <2.0 (<2.0) mg/dL Ur Leukocyte Esterase Negative (Negative) Urine RBC 4 (0-5) /hpf Urine WBC 7 H (0-5) /hpf Ur Squamous Epith Cells <1 (0-4) /hpf Amorphous Sediment Moderate H (None) /hpf Urine Bacteria Rare H (None) /hpf Hyaline Casts 3 H (0-2) /lpf Urine Mucus Rare H (None) /hpf Disposition Clinical Impression: Hypertensive urgency, Chest pain, NSTEMI (non-ST elevated myocardial infarction), Acute kidney injury superimposed on CKD, Ascites Disposition: ADMITTED IP TO THIS HOSP Condition: Stable Is patient prescribed a controlled substance at d/c from ED?: No Decision to Admit Reason: Admit from EC Decision Date: 01/02/22 Decision Time: 14:44
[2022-01-02] MEDS: SODIUM CHLORIDE 0.9% 1,000 ML IV SCH ×2 (14:48→18:10)
[2022-01-02] MEDS ORDERED: ALBUTEROL NEBULIZED 2.5 MG/3 ML INHALATION PRN (16:17)
[2022-01-02] MEDS: FLUTICASONE 110 MCG INHALER INHALATION SCH (20:25)
[2022-01-02] MEDS: hydrALAZINE HCL 25 MG TAB PO SCH (22:10)
[2022-01-03] MEDS: hydrALAZINE HCL 25 MG TAB PO SCH (04:19)
[2022-01-03] MEDS: FLUTICASONE 110 MCG INHALER INHALATION SCH ×3 (08:36→19:54)
[2022-01-03 08:43] LABS: Anisocytosis Slight; Basophils % (A) 0 %; Eosinophils # (A) 0.1 k/uL (0-0.7); Eosinophils % (A) 2 %; HCT 24.2 % (34.0-46.0); HGB 7.7 gm/dL (11.4-16.0); Hypochromasia Moderate; Lymphocytes # (A) 0.2 k/uL (1.0-4.8); Lymphocytes % (A) 6 %; MCH 29.2 pg (25.0-35.0); MCHC 31.9 g/dL (31.0-37.0); MCV 91.5 fL (80.0-100.0); Monocytes # (A) 0.2 k/uL (0-1.0); Monocytes % (A) 6 %; Neutrophils # (A) 3.1 k/uL (1.3-7.7); Neutrophils % (A) 84 %; RBC 2.64 m/uL (3.80-5.40); RDW 16.2 % (11.5-15.5); WBC 3.7 k/uL (3.8-10.6)
--- NOTE | 2022-01-03 08:45 | P.CRDCN ---
History of Present Illness Consult date: 01/03/22 History of present illness: HISTORY OF PRESENT ILLNESS: This is a 61-year-old female with a past medical history significant for chronic kidney disease, liver disease with previous paracentesis in September 2021, hypertension, and GERD. 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 We have been asked to see the patient in consultation for chest pain and abnormal troponins. Patient examined at the bedside. Patient states she has not been taking her antihypertensive medications recently. She states that she went to see her kidney doctor a couple days ago and he wanted her to increase her blood pressure medications. She states that she took them all yesterday morning and begin that feeling well. She states that she began to feel palpitations, mild chest pressure, and heartburn. She denies having any shortness of breath. She denies having any chest pain. Patients blood pressure has been significantly elevated since coming to the emergency room with a systolic ranging between 170 and 200. * EKG reveals sinus tachycardia with a rate of 106. No signs of acute ischemia. LVH. * Chest xray negative for acute process * Laboratory data: WBC 5.7. Hemoglobin 8.3. Platelet count 83. Sodium 130. Potassium 5.2. BUN 39. Creatinine 3.14. ProBNP 3520. Troponin 0.194. 0.177. 0.156. * Current home cardiac medications include Lasix 20 mg daily, Aldactone 25 mg daily, and hydralazine 25 mg 3 times a day REVIEW OF SYSTEMS: At the time of my exam: CONSTITUTIONAL: Denies fever or chills. HEENT: Denies blurred vision, vision changes, or eye pain. Denies hemoptysis CARDIOVASCULAR: Denies chest pain. Denies orthopnea. Denies PND. Denies palpitations RESPIRATORY: Denies shortness of breath. GASTROINTESTINAL: Denies abdominal pain. Denies nausea or vomiting. HEMATOLOGIC: Denies bleeding disorders. GENITOURINARY: Denies any blood in urine. SKIN: Denies pruitis. Denies rash. PHYSICAL EXAM: VITAL SIGNS: Reviewed. GENERAL: Well-developed in no acute distress. HEENT: Head is normocephalic. Pupils are equal, round. Sclerae anicteric. Mucous membranes of the mouth are moist. Neck supple. No JVD or thyromegaly LUNGS: Respirations even and unlabored. Lungs diminished to auscultation bilaterally. HEART: Regular rate and rhythm. S1 and S2 heard. ABDOMEN: Soft. Distended. Nontender. EXTREMITIES: Normal range of motion. No clubbing or cyanosis. Peripheral pulses intact. 1-2+ lower extremity edema NEUROLOGIC: Awake and alert. Oriented x 3. + ASSESSMENT: Generalized malaise Palpitations Hypertensive urgency Medication noncompliance Acute on chronic kidney disease Abnormal troponins, likely secondary to above, no signs of ACS Volume overloaded, possible right sided heart failure Liver disease History of paracentesis, September 2021 PLAN: Obtain 2D echo to assess cardiac structure and function Continue to monitor blood pressure Add metoprolol 25mg BID Add Norvasc 5mg daily Resume home cardiac medications Nephrology consulted. Await evaluation. Patient will require further cardiac workup including stress test when her blood pressure has stabilized Further recommendations pending patient course Nurse practitioner note has been reviewed by physician. Signing provider agrees with the documented findings, assessment, and plan of care. Past Medical History Past Medical History: Asthma, Diabetes Mellitus, GERD/Reflux, Liver Disease Additional Past Medical History / Comment(s): Hepatitis B & C, end stage liver disease, kidney stones, cryptosporidium positive, Ascites, pancreatitis, gastroparesis. Hx Vertigo, urinary tract infection, clotting disorder, multiple hernia, hypertensive crisis 09/23/21 admitted and disharged on antihypertensive meds but patient states they made her sick and she stopped them. Patient also t hinks she had covid in October as she had multiple symptoms and her son had tested positive October 14, 2021. hep b and hep c History of Any Multi-Drug Resistant Organisms: None Reported Past Surgical History: Cholecystectomy, Hysterectomy Additional Past Surgical History / Comment(s): multi large volume paracentesis Past Anesthesia/Blood Transfusion Reactions: Motion Sickness Past Psychological History: No Psychological Hx Reported Smoking Status: Former smoker Past Alcohol Use History: None Reported Additional Past Alcohol Use History / Comment(s): Smoked 10 years est, quit 1979 Past Drug Use History: Marijuana Additional Drug Use History / Comment(s): occ use of marijuana vape pen - Past Family History Mother Family Medical History: Cancer Additional Family Medical History / Comment(s): breast with mets Father Family Medical History: Cancer Additional Family Medical History / Comment(s): prostate and colon ca Medications and Allergies Home Medications Medication Instructions Recorded Confirmed Type Spironolactone [Aldactone] 25 mg PO DAILY 07/06/20 01/02/22 History Albuterol Sulfate [Ventolin HFA] 2 puff INHALATION RT-Q6H PRN 07/14/20 01/02/22 History oxyCODONE HCL [oxyCODONE HCL (IR)] 10 mg PO Q6H PRN 07/14/20 01/02/22 History Furosemide [Lasix] 20 mg PO DAILY 02/25/21 01/02/22 History Budesonide [Pulmicort Flexhaler] 1 puff IN RT-DAILY PRN 01/02/22 01/02/22 History hydrALAZINE HCL 25 mg PO TID 01/02/22 01/02/22 History Allergies Allergy/AdvReac Type Severity Reaction Status Date / Time No Known Allergies Allergy Verified 01/02/22 13:40 Physical Exam Vitals: Vital Signs Temp Pulse Pulse Resp BP BP Pulse Ox 01/03/22 06:30 190/62 01/03/22 04:00 98.6 F 98 18 201/73 97 01/02/22 23:44 98.2 F 89 18 190/60 98 01/02/22 20:00 99.1 F 94 18 174/62 98 01/02/22 17:55 98.5 F 91 18 193/67 99 01/02/22 17:28 98.3 F 90 16 178/69 99 01/02/22 15:00 86 20 177/74 97 01/02/22 13:52 87 18 167/72 99 01/02/22 12:00 105 H 01/02/22 11:57 105 H 20 179/79 99 01/02/22 11:48 97.5 F L 106 H 20 199/168 100 Intake and Output 01/02/22 01/03/22 01/03/22 22:59 06:59 14:59 Intake Total 440 Balance 440 Intake: Intake, IV Titration 200 Amount Sodium Chloride 0.9% 1, 200 000 ml @ 50 mls/hr IV . Q20H [facility] Rx#:[id number] Oral 240 Other: # Voids 2 Weight 107.501 kg Results 01/03/22 08:08 01/03/22 08:08 Cardiac Enzymes 01/02/22 01/02/22 01/02/22 Range/Units 12:22 12:22 15:19 AST 47 H (14-36) U/L Troponin I 0.194 H* 0.177 H* (0.000-0.034) ng/mL 01/02/22 Range/Units 18:28 AST (14-36) U/L Troponin I 0.156 H* (0.000-0.034) ng/mL Coagulation 01/02/22 Range/Units 11:58 PT 11.1 (9.0-12.0) sec APTT 19.5 L (22.0-30.0) sec CBC 01/02/22 Range/Units 11:58 WBC 5.7 (3.8-10.6) k/uL RBC 2.97 L (3.80-5.40) m/uL Hgb 8.3 L (11.4-16.0) gm/dL Hct 26.7 L (34.0-46.0) % Plt Count 83 L (150-450) k/uL Comprehensive Metabolic Panel 01/02/22 Range/Units 12:22 Sodium 138 (137-145) mmol/L Potassium 5.2 H (3.5-5.1) mmol/L Chloride 113 H (98-107) mmol/L Carbon Dioxide 14 L (22-30) mmol/L BUN 39 H (7-17) mg/dL Creatinine 3.14 H (0.52-1.04) mg/dL Glucose 157 H (74-99) mg/dL Calcium 8.2 L (8.4-10.2) mg/dL AST 47 H (14-36) U/L ALT 24 (4-34) U/L Alkaline Phosphatase 57 (38-126) U/L Total Protein 7.6 (6.3-8.2) g/dL Albumin 3.1 L (3.5-5.0) g/dL Current Medications Generic Name Dose Route Start Last Admin Trade Name Freq PRN Reason Stop Dose Admin Albuterol Sulfate 2.5 mg 01/02/22 16:17 Albuterol Nebulized 2.5 Mg/3 Ml INHALATION RT-Q6H PRN Shortness Of Breath Amlodipine Besylate 5 mg 01/03/22 09:00 Amlodipine 5 Mg Tab PO DAILY EBONIE Fluticasone Propionate 2 puff 01/02/22 20:00 01/02/22 20:25 Fluticasone 110 Mcg Inhaler INHALATION Not Given RT-BID EBONIE Hydralazine HCl 25 mg 01/02/22 22:00 01/03/22 04:19 Hydralazine Hcl 25 Mg Tab PO 25 mg TID EBONIE Administration Sodium Chloride 1,000 mls @ 50 mls/hr 01/02/22 14:45 01/02/22 18:10 Saline 0.9% IV 50 mls/hr .Q20H EBONIE Administration Metoprolol Tartrate 25 mg 01/03/22 09:00 Metoprolol Tartrate 25 Mg Tab PO BID EBONIE Morphine Sulfate 4 mg 01/02/22 14:44 Morphine Sulfate 4 Mg/Ml Syringe IV Q4HR PRN Severe Pain Naloxone HCl 0.2 mg 01/02/22 14:44 Naloxone 0.4 Mg/Ml 1 Ml Vial IV Q2M PRN Opioid Reversal Oxycodone HCl 10 mg 01/02/22 16:17 01/02/22 18:08 Oxycodone Hcl 5 Mg Tab PO 10 mg Q6H PRN Administration Pain Intake and Output 01/02/22 01/03/22 01/03/22 22:59 06:59 14:59 Intake Total 440 Balance 440 Intake: Intake, IV Titration 200 Amount Sodium Chloride 0.9% 1, 200 000 ml @ 50 mls/hr IV . Q20H [facility] Rx#:[id number] Oral 240 Other: # Voids 2 Weight 107.501 kg 01/02/22 11:58 01/02/22 12:22
[2022-01-03 08:46] LABS: Platelet Count 86 k/uL (150-450)
[2022-01-03] MEDS ORDERED: METOPROLOL TARTRATE 25 MG TAB PO SCH (09:00)
[2022-01-03] MEDS ORDERED: amLODIPine 5 MG TAB PO SCH (09:00)
[2022-01-03 09:01] LABS: African American GFR (CKD) 17 (>60 ml/min/1.73 sqM); Anion Gap 9 mmol/L; Blood Urea Nitrogen 40 mg/dL (7-17); Calcium 8.2 mg/dL (8.4-10.2); Carbon Dioxide 15 mmol/L (22-30); Chloride 113 mmol/L (98-107); Glucose 146 mg/dL (74-99); Non-African American GFR(CKD) 15 (>60 ml/min/1.73 sqM); Potassium 5.2 mmol/L (3.5-5.1); Sodium 137 mmol/L (137-145)
[2022-01-03] MEDS ORDERED: hydrALAZINE HCL 20 MG/ML 1 ML VIAL IVP PRN (10:10)
--- NOTE | 2022-01-03 10:13 | P.NPCON ---
History of Present Illness - Reason for Consult acute renal failure, chronic renal failure - History of Present Illness Reason for consultation: Acute kidney injury on chronic kidney disease History of present illness: Patient is a 61-year-old female seen in renal consultation for acute kidney injury on chronic kidney disease. Patient has chronic kidney disease stage IV secondary to hepatorenal syndrome. Patient baseline creatinine has been in the range of 2.6-2.9. Patient has history of liver cirrhosis and also history of hepatitis C. Patient states she has been denied liver transplant at [facility]. Patient was seen in the office last week and was advised to go to the hospital due to blood pressure being extremely elevated. She refused to go but when she went home and monitor her blood pressure it stayed persistently elevated and came to the hospital. She received IV fluids overnight. Creatinine is stable at 3.13 today. Blood pressure remains elevated at 209/71 this morning. She does admit to abdominal distention. Patient states her last paracentesis was in September 2021 at 7 L drained. She does take Lasix and spironolactone at home. She denies chest pain but does feel short of breath at times. No vomiting or diarrhea. Oral intake is poor. No history of diabetes. Vital signs are stable. Blood pressure high. General: The patient appeared well nourished and normally developed. HEENT: Head exam is unremarkable. LUNGS: Breath sounds decreased. HEART: Rate and Rhythm are regular. ABDOMEN: Soft, distention noted. EXTREMITITES: 2+ edema. Past Medical History Past Medical History: Asthma, Diabetes Mellitus, GERD/Reflux, Liver Disease Additional Past Medical History / Comment(s): Hepatitis B & C, end stage liver disease, kidney stones, cryptosporidium positive, Ascites, pancreatitis, gas troparesis. Hx Vertigo, urinary tract infection, clotting disorder, multiple hernia, hypertensive crisis 09/23/21 admitted and disharged on antihypertensive meds but patient states they made her sick and she stopped them. Patient also thinks she had covid in October as she had multiple symptoms and her son had tested positive October 14, 2021. hep b and hep c History of Any Multi-Drug Resistant Organisms: None Reported Past Surgical History: Cholecystectomy, Hysterectomy Additional Past Surgical History / Comment(s): multi large volume paracentesis Past Anesthesia/Blood Transfusion Reactions: Motion Sickness Past Psychological History: No Psychological Hx Reported Smoking Status: Former smoker Past Alcohol Use History: None Reported Additional Past Alcohol Use History / Comment(s): Smoked 10 years est, quit 1979 Past Drug Use History: Marijuana Additional Drug Use History / Comment(s): occ use of marijuana vape pen - Past Family History Mother Family Medical History: Cancer Additional Family Medical History / Comment(s): breast with mets Father Family Medical History: Cancer Additional Family Medical History / Comment(s): prostate and colon ca Medications and Allergies Home Medications Medication Instructions Recorded Confirmed Type Spironolactone [Aldactone] 25 mg PO DAILY 07/06/20 01/02/22 History Albuterol Sulfate [Ventolin HFA] 2 puff INHALATION RT-Q6H PRN 07/14/20 01/02/22 History oxyCODONE HCL [oxyCODONE HCL (IR)] 10 mg PO Q6H PRN 07/14/20 01/02/22 History Furosemide [Lasix] 20 mg PO DAILY 02/25/21 01/02/22 History Budesonide [Pulmicort Flexhaler] 1 puff IN RT-DAILY PRN 01/02/22 01/02/22 History hydrALAZINE HCL 25 mg PO TID 01/02/22 01/02/22 History Allergies Allergy/AdvReac Type Severity Reaction Status Date / Time No Known Allergies Allergy Verified 01/02/22 13:40 Physical Exam Vitals: Vital Signs Temp Pulse Pulse Resp BP BP Pulse Ox 01/03/22 08:45 97.8 F 111 H 18 209/71 98 01/03/22 06:30 190/62 01/03/22 04:00 98.6 F 98 18 201/73 97 01/02/22 23:44 98.2 F 89 18 190/60 98 01/02/22 20:00 99.1 F 94 18 174/62 98 01/02/22 17:55 98.5 F 91 18 193/67 99 01/02/22 17:28 98.3 F 90 16 178/69 99 01/02/22 15:00 86 20 177/74 97 01/02/22 13:52 87 18 167/72 99 01/02/22 12:00 105 H 01/02/22 11:57 105 H 20 179/79 99 01/02/22 11:48 97.5 F L 106 H 20 199/168 100 Intake and Output 03/27/22 03/28/22 03/28/22 22:59 06:59 14:59 Intake Total 440 180 Balance 440 180 Intake: Intake, IV Titration 200 Amount Sodium Chloride 0.9% 1, 200 000 ml @ 50 mls/hr IV . Q20H [facility] Rx#:[id number] Oral 240 180 Other: # Voids 2 Weight 107.501 kg Results - Lab Results Most recent lab results Calcium 8.2 mg/dL (8.4-10.2) L 01/03/22 08:08 Phosphorus 4.9 mg/dL (2.5-4.5) H 01/02/22 12:51 Magnesium 2.0 mg/dL (1.6-2.3) 01/03/22 08:08 01/03/22 08:08 01/03/22 08:08 Assessment and Plan Plan: assessment: 1. Acute kidney injury secondary to ATN secondary to hepatorenal syndrome. Creatinine stable at 3.13 today. 2. Chronic kidney disease stage IV secondary to hepatorenal syndrome with baseline creatinine in the range of 2.6-2.9. 3. Hep C-induced liver cirrhosis. 4. Metabolic acidosis secondary to acute kidney injury. 5. Hypertensive urgency. 6. Volume overload with ascites. 7. Anemia of chronic kidney disease. Rule out iron deficiency. Plan: Hep-Lock IV fluids. Low-salt diet. 1200 mL fluid restriction. Check abdominal ultrasound. If ascites present, schedule for paracentesis. Albumin pre-and post-paracentesis. Add oral bicarb. Add IV Lasix 40 mg twice daily. If potassium level better tomorrow, will add spironolactone. Continue to monitor renal function and urine output. Check iron studies. Increase dose of hydralazine. Amlodipine added by cardiology. I will also add hydralazine 10 mg IV every 4 hours as needed for systolic blood pressure greater than 160. Thank you for the consultation. I will continue to follow patient with you during her hospital stay.
[2022-01-03] MEDS ORDERED: amLODIPine 5 MG TAB PO STA (10:14)
[2022-01-03] MEDS ORDERED: METOPROLOL TARTRATE 25 MG TAB PO STA (12:10)
[2022-01-03] MEDS: FUROSEMIDE 10 MG/ML 4 ML VIAL IV SCH ×2 (12:21→19:58)
[2022-01-03] MEDS: SODIUM BICARBONATE TAB 650 MG TAB PO SCH ×3 (12:22→21:36)
--- NOTE | 2022-01-03 12:32 | P.CONS ---
History of Present Illness - Reason for Consult Consult date: 01/03/22 cirrhosis, hepatitis Requesting physician: Esau Witt - Chief Complaint Racing heart - History of Present Illness This is 61-year-old female who presented to the emergency department yesterday with complaints of her heart racing. States she started a new medication and felt like her heart was racing so she came in for further evaluation. She has a past medical history including history of hepatitis B and C, end-stage liver disease with ascites, chronic kidney disease, diabetes mellitus and hypertension. The patient states she was diagnosed with hepatitis B and C 30 years ago. She states at that time she was applying for job and had to get tested for hepatitis and was told she was positive for hepatitis B and C. She states that that time she had followed with [facility] and states they wanted to start interferon but she could not afford to be off of work at that time for treatment. She states she has not had any treatment since then. She has not followed up with any seed district sales manager or liver specialist in over 10 years. She states that she follows with her primary care physician Dr. Rios and he manages her diuretics as well as her paracentesis which she states she has a standing order. Her last Peña cases was 09/23/2021 for 7.8 L of fluid removal. Her home diuretics included Lasix 20 mg daily and Aldactone 25 mg daily. Lasix changed to 40 mg twice a day, Aldactone on hold currently. Patient's pancytopenic on admission, she had elevated troponins 2. Cardiology is following as well as nephrology. Patient was hypertensive on admission. WBC 3.7 hemoglobin 7.7 hematocrit 24 platelet count 86,000 sodium 137 potassium 5.2 140 creatinine 3.1 glucose 146 total bilirubin 0.7 AST 47 and 2023 alk phos 57. She denies any abdominal pain, states some she has abdominal distention. She has a umbilical hernia that she has had for quite some time. She denies any nausea, vomiting, shortness of breath or chest pain at this time. She does have increased swelling to her lower extremities as well. Review of Systems REVIEW OF SYSTEMS: CARDIOPULMONARY: No chest pain or shortness of breath. Racing heart. Lower extremity edema. Gastrointestinal: No abdominal pain, does have abdominal distention/ascites. Umbilical hernia nonpainful. No nausea or vomiting. No hematemesis, coffee- ground emesis. No rectal bleeding, or melena. GENITOURINARY: No dysuria or hematuria. MUSCULOSKELETAL: Reports normal range of motion. No Joint pain. SKIN: No rashes. No jaundice. ENDOCRINE: No chills, fevers. No excessive weight gain or loss. No polydipsia or polyuria. PSYCHIATRIC: Unremarkable. NEUROLOGY: No change in mental status. Denies dizziness, headache. ENT: Vision unremarkable. CONSTITUTIONAL: No recent weight loss. No fever, chills, night sweats. Past Medical History Past Medical History: Asthma, Diabetes Mellitus, GERD/Reflux, Liver Disease Additional Past Medical History / Comment(s): Hepatitis B & C, end stage liver disease, kidney stones, cryptosporidium positive, Ascites, pancreatitis, gastroparesis. Hx Vertigo, urinary tract infection, clotting disorder, multiple hernia, hypertensive crisis 09/23/21 admitted and disharged on antihypertensive meds but patient states they made her sick and she stopped them. Patient also thinks she had covid in October as she had multiple symptoms and her son had tested positive October 14, 2021. hep b and hep c History of Any Multi-Drug Resistant Organisms: None Reported Past Surgical History: Cholecystectomy, Hysterectomy Additional Past Surgical History / Comment(s): multi large volume paracentesis Past Anesthesia/Blood Transfusion Reactions: Motion Sickness Past Psychological History: No Psychological Hx Reported Smoking Status: Former smoker Past Alcohol Use History: None Reported Additional Past Alcohol Use History / Comment(s): Smoked 10 years est, quit 1979 Past Drug Use History: Marijuana Additional Drug Use History / Comment(s): occ use of marijuana vape pen - Past Family History Mother Family Medical History: Cancer Additional Family Medical History / Comment(s): breast with mets Father Family Medical History: Cancer Additional Family Medical History / Comment(s): prostate and colon ca Medications and Allergies Home Medications Medication Instructions Recorded Confirmed Type Spironolactone [Aldactone] 25 mg PO DAILY 07/06/20 01/02/22 History Albuterol Sulfate [Ventolin HFA] 2 puff INHALATION RT-Q6H PRN 07/14/20 01/02/22 History oxyCODONE HCL [oxyCODONE HCL (IR)] 10 mg PO Q6H PRN 07/14/20 01/02/22 History Furosemide [Lasix] 20 mg PO DAILY 02/25/21 01/02/22 History Budesonide [Pulmicort Flexhaler] 1 puff IN RT-DAILY PRN 01/02/22 01/02/22 History hydrALAZINE HCL 25 mg PO TID 01/02/22 01/02/22 History Allergies Allergy/AdvReac Type Severity Reaction Status Date / Time No Known Allergies Allergy Verified 01/02/22 13:40 Physical Exam Vitals: Vital Signs Temp Pulse Pulse Resp BP BP Pulse Ox 01/03/22 08:45 97.8 F 111 H 18 209/71 98 01/03/22 06:30 190/62 01/03/22 04:00 98.6 F 98 18 201/73 97 01/02/22 23:44 98.2 F 89 18 190/60 98 01/02/22 20:00 99.1 F 94 18 174/62 98 01/02/22 17:55 98.5 F 91 18 193/67 99 01/02/22 17:28 98.3 F 90 16 178/69 99 01/02/22 15:00 86 20 177/74 97 01/02/22 13:52 87 18 167/72 99 01/02/22 12:00 105 H 01/02/22 11:57 105 H 20 179/79 99 Intake and Output 01/02/22 01/03/22 01/03/22 22:59 06:59 14:59 Intake Total 440 180 Balance 440 180 Intake: Intake, IV Titration 200 Amount Sodium Chloride 0.9% 1, 200 000 ml @ 50 mls/hr IV . Q20H [facility] Rx#:[id number] Oral 240 180 Other: # Voids 2 Weight 107.501 kg General appearance: The patient is alert, oriented, appears in no acute distress. HET: Head is normocephalic and atraumatic. Conjunctiva pink. Sclera anicteric. Neck: Supple without lymphadenopathy. Trachea midline. Heart: S1 S2. Regular rate and rhythm. Lungs: Clear to auscultation. Abdomen: Soft, nontender, distended/ascites, generalized anasarca, positive bowel sounds. Reducible umbilical hernia. No guarding or rigidity. Skin: No rashes. No jaundice. Extremities: Normal skin color and turgor. Bilateral lower extremity +2 pitting edema Neurological: No focal deficits. Alert and oriented x3. Results CBC & Chem 7: 01/03/22 08:08 01/03/22 08:08 Labs: Abnormal Lab Results - Last 24 Hours (Table) 01/02/22 01/02/22 01/02/22 Range/Units 11:58 11:58 12:22 WBC (3.8-10.6) k/uL RBC 2.97 L (3.80-5.40) m/uL Hgb 8.3 L (11.4-16.0) gm/dL Hct 26.7 L (34.0-46.0) % RDW 15.9 H (11.5-15.5) % Plt Count 83 L (150-450) k/uL Lymphocytes # 0.3 L (1.0-4.8) k/uL APTT 19.5 L (22.0-30.0) sec Potassium (3.5-5.1) mmol/L Chloride (98-107) mmol/L Carbon Dioxide (22-30) mmol/L BUN (7-17) mg/dL Creatinine (0.52-1.04) mg/dL Glucose (74-99) mg/dL Plasma Lactic Acid José (0.7-2.0) mmol/L Calcium (8.4-10.2) mg/dL Phosphorus (2.5-4.5) mg/dL AST (14-36) U/L Troponin I 0.194 H* (0.000-0.034) ng/mL Albumin (3.5-5.0) g/dL Urine Appearance (Clear) Urine Protein (Negative) Urine Blood (Negative) Urine WBC (0-5) /hpf Amorphous Sediment (None) /hpf Urine Bacteria (None) /hpf Hyaline Casts (0-2) /lpf Urine Mucus (None) /hpf 01/02/22 01/02/22 01/02/22 Range/Units 12:22 12:51 12:51 WBC (3.8-10.6) k/uL RBC (3.80-5.40) m/uL Hgb (11.4-16.0) gm/dL Hct (34.0-46.0) % RDW (11.5-15.5) % Plt Count (150-450) k/uL Lymphocytes # (1.0-4.8) k/uL APTT (22.0-30.0) sec Potassium 5.2 H (3.5-5.1) mmol/L Chloride 113 H (98-107) mmol/L Carbon Dioxide 14 L (22-30) mmol/L BUN 39 H (7-17) mg/dL Creatinine 3.14 H (0.52-1.04) mg/dL Glucose 157 H (74-99) mg/dL Plasma Lactic Acid José 2.8 H* (0.7-2.0) mmol/L Calcium 8.2 L (8.4-10.2) mg/dL Phosphorus 4.9 H (2.5-4.5) mg/dL AST 47 H (14-36) U/L Troponin I (0.000-0.034) ng/mL Albumin 3.1 L (3.5-5.0) g/dL Urine Appearance (Clear) Urine Protein (Negative) Urine Blood (Negative) Urine WBC (0-5) /hpf Amorphous Sediment (None) /hpf Urine Bacteria (None) /hpf Hyaline Casts (0-2) /lpf Urine Mucus (None) /hpf 01/02/22 01/02/22 01/02/22 Range/Units 13:45 15:19 18:28 WBC (3.8-10.6) k/uL RBC (3.80-5.40) m/uL Hgb (11.4-16.0) gm/dL Hct (34.0-46.0) % RDW (11.5-15.5) % Plt Count (150-450) k/uL Lymphocytes # (1.0-4.8) k/uL APTT (22.0-30.0) sec Potassium (3.5-5.1) mmol/L Chloride (98-107) mmol/L Carbon Dioxide (22-30) mmol/L BUN (7-17) mg/dL Creatinine (0.52-1.04) mg/dL Glucose (74-99) mg/dL Plasma Lactic Acid José (0.7-2.0) mmol/L Calcium (8.4-10.2) mg/dL Phosphorus (2.5-4.5) mg/dL AST (14-36) U/L Troponin I 0.177 H* 0.156 H* (0.000-0.034) ng/mL Albumin (3.5-5.0) g/dL Urine Appearance Cloudy H (Clear) Urine Protein 3+ H (Negative) Urine Blood Trace H (Negative) Urine WBC 7 H (0-5) /hpf Amorphous Sediment Moderate H (None) /hpf Urine Bacteria Rare H (None) /hpf Hyaline Casts 3 H (0-2) /lpf Urine Mucus Rare H (None) /hpf 01/03/22 01/03/22 Range/Units 08:08 08:08 WBC 3.7 L (3.8-10.6) k/uL RBC 2.64 L (3.80-5.40) m/uL Hgb 7.7 L (11.4-16.0) gm/dL Hct 24.2 L (34.0-46.0) % RDW 16.2 H (11.5-15.5) % Plt Count 86 L (150-450) k/uL Lymphocytes # 0.2 L (1.0-4.8) k/uL APTT (22.0-30.0) sec Potassium 5.2 H (3.5-5.1) mmol/L Chloride 113 H (98-107) mmol/L Carbon Dioxide 15 L (22-30) mmol/L BUN 40 H (7-17) mg/dL Creatinine 3.13 H (0.52-1.04) mg/dL Glucose 146 H (74-99) mg/dL Plasma Lactic Acid José (0.7-2.0) mmol/L Calcium 8.2 L (8.4-10.2) mg/dL Phosphorus (2.5-4.5) mg/dL AST (14-36) U/L Troponin I (0.000-0.034) ng/mL Albumin (3.5-5.0) g/dL Urine Appearance (Clear) Urine Protein (Negative) Urine Blood (Negative) Urine WBC (0-5) /hpf Amorphous Sediment (None) /hpf Urine Bacteria (None) /hpf Hyaline Casts (0-2) /lpf Urine Mucus (None) /hpf Assessment and Plan (1) Cirrhosis of liver Narrative/Plan: This is a 61-year-old female with a long-standing history of reported hepatitis B and C diagnosed 30 years ago. Patient states she has never received treatment.states she followed up with [facility] 30 years ago.she states they told her at that time that she had cirrhosis of the liver and was not a candidate for liver transplant. She also stated she has not seen a seed district sales manager or [facility] in over 10 years. She believes she saw Sofía Spicer about 10 years ago. States at one time that they wanted to treat her with interferon but she financially cannot afford the treatment. She has since then had been diagnosed with cirrhosis of the liver with ascites, she is managed by her PCP Dr. Rios. Normally takes Lasix 20 mg daily and Aldactone 25 mg daily. Recently diagnosed with chronic kidney disease and has seen Dr. Witt in the outpatient setting. her last hepatitis panel in April 2021 showed hepatitis B antibody nonreactive, hepatitis C antibody reactive prior to that lap shown 2013 hepatitis C RNA positive hepatitis C antibody positive quantitative [id number] HCV RNA 6.3 a genotype IIIa. Adarshation was admitted with racing heart, recently started on new medication she states. She had elevated troponins and is being followed by cardiology as well as nephrology for acute kidney disease. The patient's labs are consistent with pancytopenia and chronic liver disease. WBC 3.7 hemoglobin 7.7 hematocrit 24 platelet count 86,000 INR 1.0total bilirubin 0.7 AST 47 AST 24 alkaline phosphatase 57 Current Visit: Yes Status: Acute Code(s): K74.60 - UNSPECIFIED CIRRHOSIS OF LIVER SNOMED Code(s): 75441926 (2) History of hepatitis C Current Visit: Yes Status: Acute Code(s): Z86.19 - PERSONAL HISTORY OF OTHER INFECTIOUS AND PARASITIC DISEASES SNOMED Code(s): 45647715513790 (3) Acute kidney injury Narrative/Plan: Nephrology following closely, Aldactone held at this time Current Visit: Yes Status: Acute Code(s): N17.9 - ACUTE KIDNEY FAILURE, UNSPECIFIED SNOMED Code(s): 04660203 (4) Chronic kidney disease Narrative/Plan: Stage IV secondary to hepatorenal syndrome Current Visit: Yes Status: Acute Code(s): N18.9 - CHRONIC KIDNEY DISEASE, UNSPECIFIED SNOMED Code(s): 768154555 (5) Ascites Current Visit: Yes Status: Acute Code(s): R18.8 - OTHER ASCITES SNOMED Code(s): 197549494 (6) Hyperkalemia Current Visit: Yes Status: Acute Code(s): E87.5 - HYPERKALEMIA SNOMED Code(s): 40773263 Plan: 1. Continue symptomatic and supportive care 2. Await abdominal ultrasound for evaluation of ascites 3. Interventional radiology consulted for paracentesis with fluid studies 4. We'll defer diuretic treatment to nephrology at this time 5. Hepatitis B AB/antigen ordered, hepatitis C quantitative and genotype ordered 6. Repeat CBC daily 7. Low sodium diet 8. Recommend close outpatient follow-up and surveillance with gastroenterology Thank you for this consultation, we will continue to follow. Dr. Rachel Bose I agree with the dictator's note, documented as a scribe by Kristie Osorio.
--- NOTE | 2022-01-03 15:42 | US ---
EXAMINATION TYPE: US abd limited kidneys/bladder DATE OF EXAM: 01/03/2022 COMPARISON: NONE CLINICAL HISTORY: 61-year-old female ascites and r/o hydronephrosis. EXAM MEASUREMENTS: Severe ascites. Right Kidney: 10.7 x 4.8 x 5.4 cm Left Kidney: 11.1 x 4.7 x 4.5 cm Optometric Tech notes: Patient of large body habitus with large volume of ascites, technically difficult study. Right Kidney: wnl as seen Left Kidney: A few cysts measuring up to 2.6 cm. No hydronephrosis on either side. Bladder: not seen due to patients large abdomen and having to sit upright for exam Incidental: Cirrhotic morphology of the liver with nodular hepatic contour. Splenomegaly. IMPRESSION: 1. Large patient body habitus limiting exam. There appears to be moderate to large underlying ascites fluid. Cirrhotic morphology of the liver. Along with splenomegaly at 17.1 cm, findings suggest flaquito l venous hypertension. 2. No hydronephrosis. 3. Inadequate assessment of the bladder due to large body size and patient being seated upright for t he exam.
[2022-01-03 16:04] LABS: % Iron Saturation 8.39 (12.00-45.00); Ferritin 46.6 ng/mL (10.0-291.0)
[2022-01-03] MEDS: hydrALAZINE HCL 50 MG TAB PO SCH ×2 (16:43→21:36)
[2022-01-03 18:45] LABS: Appearance,Urine Clear (Clear); Bilirubin,Urine Negative (Negative); Blood,Urine Trace (Negative); Color,Urine Light Yellow; Glucose,Urine (UA) Negative (Negative); Ketones,Urine Negative (Negative); Leukocyte Esterase,Urine Trace (Negative); Mucus,Urine Rare /hpf; Nitrite,Urine Negative (Negative); Protein,Urine 2+ (Negative); RBC,Urine 1 /hpf (0-5); Specific Gravity,Urine 1.009 (1.001-1.035); Squamous Epithelial Cell,Urine <1 /hpf (0-4); Urobilinogen,Urine <2.0 mg/dL (<2.0); WBC,Urine 2 /hpf (0-5)
[2022-01-03] MEDS: METOPROLOL TARTRATE 50 MG TAB PO SCH (19:58)
[2022-01-03 23:34] LABS: Chol/HDL Ratio 2.76 Ratio; LDL Cholesterol,Calculated 35.1 mg/dL (0.0-131.0); VLDL Calculation 12.48 mg/dL (5.00-40.00)
[2022-01-04] MEDS: FLUTICASONE 110 MCG INHALER INHALATION SCH ×2 (07:53→20:04)
--- NOTE | 2022-01-04 08:53 | P.PN ---
Subjective Patient is seen in follow-up for acute kidney injury and chronic kidney disease. Morning labs pending. Blood pressure improved. Admits to good urine output. On IV Lasix. Paracentesis pending. No vomiting or diarrhea. No chest pain or shortness of breath. Vital signs are stable. General: Awake and alert. HEENT: Head exam is unremarkable. LUNGS: Breath sounds decreased. HEART: Rate and Rhythm are regular. ABDOMEN: Distention noted. EXTREMITITES: 1+ edema. Objective - Vital Signs Vital signs: Vital Signs Temp 98.4 F 01/04/22 04:55 Pulse 82 01/04/22 04:55 Resp 18 01/04/22 04:55 BP 153/68 01/04/22 04:55 Pulse Ox 98 01/04/22 04:55 Intake & Output 01/03/22 01/04/22 01/04/22 18:59 06:59 18:59 Intake Total 420 118 Output Total 400 250 Balance 20 -132 Intake: Oral 420 118 Output: Urine 400 250 Other: Voiding Method Toilet # Voids 3 - Labs CBC & Chem 7: 01/03/22 08:08 01/03/22 08:08 Labs: Abnormal Lab Results - Last 24 Hours (Table) 01/03/22 01/03/22 01/03/22 Range/Units 08:08 08:08 08:08 WBC 3.7 L (3.8-10.6) k/uL RBC 2.64 L (3.80-5.40) m/uL Hgb 7.7 L (11.4-16.0) gm/dL Hct 24.2 L (34.0-46.0) % RDW 16.2 H (11.5-15.5) % Plt Count 86 L (150-450) k/uL Lymphocytes # 0.2 L (1.0-4.8) k/uL Potassium 5.2 H (3.5-5.1) mmol/L Chloride 113 H (98-107) mmol/L Carbon Dioxide 15 L (22-30) mmol/L BUN 40 H (7-17) mg/dL Creatinine 3.13 H (0.52-1.04) mg/dL Glucose 146 H (74-99) mg/dL Calcium 8.2 L (8.4-10.2) mg/dL Iron (50-170) ug/dL % Saturation (12.00-45.00) HDL Cholesterol 27.10 L (40.00-60.00) mg/dL Urine Protein (Negative) Urine Blood (Negative) Ur Leukocyte Esterase (Negative) Urine Mucus (None) /hpf 01/03/22 01/03/22 Range/Units 08:08 Unknown WBC (3.8-10.6) k/uL RBC (3.80-5.40) m/uL Hgb (11.4-16.0) gm/dL Hct (34.0-46.0) % RDW (11.5-15.5) % Plt Count (150-450) k/uL Lymphocytes # (1.0-4.8) k/uL Potassium (3.5-5.1) mmol/L Chloride (98-107) mmol/L Carbon Dioxide (22-30) mmol/L BUN (7-17) mg/dL Creatinine (0.52-1.04) mg/dL Glucose (74-99) mg/dL Calcium (8.4-10.2) mg/dL Iron 33 L (50-170) ug/dL % Saturation 8.39 L (12.00-45.00) HDL Cholesterol (40.00-60.00) mg/dL Urine Protein 2+ H (Negative) Urine Blood Trace H (Negative) Ur Leukocyte Esterase Trace H (Negative) Urine Mucus Rare H (None) /hpf Assessment and Plan Plan: assessment: 1. Acute kidney injury secondary to ATN secondary to hepatorenal syndrome. Creatinine 3.13 yesterday. No hydronephrosis noted on kidney ultrasound. 2. Chronic kidney disease stage IV secondary to hepatorenal syndrome with base line creatinine in the range of 2.6-2.9. 3. Hep C-induced liver cirrhosis. Patient has been evaluated at [facility] and states that she is not a candidate for liver transplant. 4. Metabolic acidosis secondary to acute kidney injury. On oral bicarb. 5. Hypertensive urgency. Improved. 6. Volume overload with ascites. 7. Anemia of chronic kidney disease. Iron deficiency noted. Plan: Low-salt diet. 1200 mL fluid restriction. Paracentesis pending. Albumin pre-and post-paracentesis. Maintain IV Lasix 40 mg twice daily. If potassium level is normal today, will add spironolactone. Continue to monitor renal function and urine output. Add IV iron. Quantify proteinuria. Continue to assess daily for possible need for renal replacement therapy.
[2022-01-04] MEDS: amLODIPine 10 MG TAB PO SCH (09:10)
[2022-01-04] MEDS: FUROSEMIDE 10 MG/ML 4 ML VIAL IV SCH ×2 (09:10→22:28)
[2022-01-04] MEDS: ASPIRIN 81 MG PO SCH (09:10)
[2022-01-04] MEDS: SODIUM BICARBONATE TAB 650 MG TAB PO SCH ×3 (09:10→22:29)
[2022-01-04] MEDS: METOPROLOL TARTRATE 50 MG TAB PO SCH ×2 (09:10→22:29)
[2022-01-04] MEDS: hydrALAZINE HCL 50 MG TAB PO SCH ×3 (09:10→22:29)
[2022-01-04] MEDS: SODIUM FERRIC GLUCONAT-SUCROSE 125 MG in SODIUM CHLORIDE 0.9% 100 ML IVPB SCH (10:35)
[2022-01-04 11:01] LABS: Albumin 2.9 g/dL (3.5-5.0); Calcium 8.1 mg/dL (8.4-10.2); Potassium 5.1 mmol/L (3.5-5.1); Total Bilirubin 0.7 mg/dL (0.2-1.3); Total Protein 7.2 g/dL (6.3-8.2)
--- NOTE | 2022-01-04 11:44 | P.PN ---
Subjective Progress Note Date: 01/03/22 This is a 61-year-old female patient with long-standing history of hepatitis C, end-stage liver disease, significant ascites with history of prior paracentesis- reports last one , presented to the ER with hypertension urgency, chest pain, positive ascites and multiple other medical issues. Noncompliant with medications, ER reported prescription bottles brought in by patient were prescribed in 2018. Last paracentesis reported 09/23/2021. Denies nausea vomiting or abdominal pain. WBC 3.7 hemoglobin 7.7 hematocrit 24 platelet count 86, INR 1. sodium 137 potassium 5.2, BUN 40 creatinine 3.13 glucose 146 total bilirubin 0.7 AST 47 and 2023 alk phos 57. ProBNP 3520 .EKG reported sinus tach ycardia, Troponin 0.194, 0.177, 0.156. Currently denies chest pain, palpitations or shortness of breath. Chest x-ray reported no acute pulmonary process. Blood pressure initially 193/67, mild tachycardia with heart rates in the low 100s respiratory rate 20, maintaining O2 sats of 100% on room air. Lactic acid 2.8, receiving IV fluid hydration. Beta blockers initiated, along with Norvasc ROS Statement: Those systems with pertinent positive or pertinent negative responses have been documented in the HPI. ROS Other: All systems not noted in ROS Statement are negative. Past Medical History Past Medical History: Asthma, Diabetes Mellitus, GERD/Reflux, Liver Disease Additional Past Medical History / Comment(s): Hepatitis B & C, end stage liver disease, kidney stones, cryptosporidium positive, Ascites, pancreatitis, gastroparesis. Hx Vertigo, urinary tract infection, clotting disorder, multiple hernia, hypertensive crisis 09/23/21 admitted and disharged on antihypertensive meds but patient states they made her sick and she stopped them. Patient also thinks she had covid in October as she had multiple symptoms and her son had tested positive October 14, 2021. hep b and hep c History of Any Multi-Drug Resistant Organisms: None Reported Past Surgical History: Cholecystectomy, Hysterectomy Additional Past Surgical History / Comment(s): multi large volume paracentesis Past Anesthesia/Blood Transfusion Reactions: Motion Sickness Past Psychological History: No Psychological Hx Reported Smoking Status: Former smoker Past Alcohol Use History: None Reported Additional Past Alcohol Use History / Comment(s): Smoked 10 years est, quit 1979 Past Drug Use History: Marijuana Additional Drug Use History / Comment(s): occ use of marijuana vape pen - Past Family History Mother Family Medical History: Cancer Additional Family Medical History / Comment(s): breast with mets Father Family Medical History: Cancer Additional Family Medical History / Comment(s): prostate and colon ca Medications and Allergies Home Medications Medication Instructions Recorded Confirmed Type Spironolactone [Aldactone] 25 mg PO DAILY 07/06/20 01/02/22 History Albuterol Sulfate [Ventolin HFA] 2 puff INHALATION RT-Q6H PRN 07/14/20 01/02/22 History oxyCODONE HCL [oxyCODONE HCL (IR)] 10 mg PO Q6H PRN 07/14/20 01/02/22 History Furosemide [Lasix] 20 mg PO DAILY 02/25/21 01/02/22 History Budesonide [Pulmicort Flexhaler] 1 puff IN RT-DAILY PRN 01/02/22 01/02/22 History hydrALAZINE HCL 25 mg PO TID 01/02/22 01/02/22 History Allergies Allergy/AdvReac Type Severity Reaction Status Date / Time No Known Allergies Allergy Verified 01/02/22 13:40 Objective - Vital Signs Vital signs: Vital Signs Temp 98.1 F 01/03/22 12:20 Pulse 88 01/03/22 12:20 Resp 20 01/03/22 12:20 BP 172/74 01/03/22 12:20 Pulse Ox 98 01/03/22 12:20 Intake & Output 01/02/22 01/03/22 01/03/22 18:59 06:59 18:59 Intake Total 440 420 Balance 440 420 Weight 107.501 kg Intake: Intake, IV Titration 200 Amount Sodium Chloride 0.9% 1, 200 000 ml @ 50 mls/hr IV . Q20H [facility] Rx#:[id number] Oral 240 420 Other: # Voids 2 3 - Exam General: [Patient awake, alert and oriented X 3, no acute distress.] HEENT: [PERRL. EOMI. No pharyngeal erythema or exudate, conjunctiva normal- pink, Sclera anicteric.] Neck: [No adenopathy.] Cardiac: [Heart regular in rate and rhythm. No S3. No S4. No clicks, rubs. No murmur.] Lungs: [Clear to auscultation bilaterally.] Abdomen: Generalized anasarca,soft, nontender, distended ,Liver palpated 4-1/2 almost 5 inches below ribs spleen is palpable, positive ascites, umbilical hernia-reducible, no guarding, no rigidity, positive bowel sounds Round protruding abdomen with extensive fluid wave consistent with gross ascites, multiple ventral hernias Extremes: Positive bilateral lower extremity edema, no cyanosis no claudication normal pulses Skin: [Warm and dry ,No rash, nontender.] Neurologic: [No lateralizing deficits. CN II - XII grossly intact.] - Labs CBC & Chem 7: 01/03/22 08:08 01/03/22 08:08 Labs: Abnormal Lab Results - Last 24 Hours (Table) 01/02/22 01/02/22 01/03/22 Range/Units 15:19 18:28 08:08 WBC 3.7 L (3.8-10.6) k/uL RBC 2.64 L (3.80-5.40) m/uL Hgb 7.7 L (11.4-16.0) gm/dL Hct 24.2 L (34.0-46.0) % RDW 16.2 H (11.5-15.5) % Plt Count 86 L (150-450) k/uL Lymphocytes # 0.2 L (1.0-4.8) k/uL Potassium (3.5-5.1) mmol/L Chloride (98-107) mmol/L Carbon Dioxide (22-30) mmol/L BUN (7-17) mg/dL Creatinine (0.52-1.04) mg/dL Glucose (74-99) mg/dL Calcium (8.4-10.2) mg/dL Troponin I 0.177 H* 0.156 H* (0.000-0.034) ng/mL 01/03/22 Range/Units 08:08 WBC (3.8-10.6) k/uL RBC (3.80-5.40) m/uL Hgb (11.4-16.0) gm/dL Hct (34.0-46.0) % RDW (11.5-15.5) % Plt Count (150-450) k/uL Lymphocytes # (1.0-4.8) k/uL Potassium 5.2 H (3.5-5.1) mmol/L Chloride 113 H (98-107) mmol/L Carbon Dioxide 15 L (22-30) mmol/L BUN 40 H (7-17) mg/dL Creatinine 3.13 H (0.52-1.04) mg/dL Glucose 146 H (74-99) mg/dL Calcium 8.2 L (8.4-10.2) mg/dL Troponin I (0.000-0.034) ng/mL Assessment and Plan Assessment: Chest pain, elevated troponins,ACS ruled out as per Cardiology Hypertensive urgency, improved Liver Cirrhosis,in a patient with history of hepatitis B and C, diagnosed 30 years ago, reports evaluated by Arvin Pittman greater than 10 years ago and reported that she was not a liver transplant candidate. Pancytopenia secondary to the above Fluid volume overload, ascites Acute on Chronic kidney disease, secondary to ATN related to hepatorenal syndrome. Baseline creatinine 2.6 Hyperkalemia Metabolic acidosis Plan: Continue current medication regime ,monitoring and symptomatic treatment. Echo pending .Beta shannon /antihypertensives. Diuretics, albumin, paracentesis pending. Hyperkalemic, Aldactone on hold. Maintain Fluid restrictions, low sodium diet.Cardiology,GI and Nephrology consults in place, recommendations pending. The impression and plan of care has been dictated as directed. : I performed a history and examination of this patient, discussed the same with the dictator. I agree with the dictator's note ,documented as a scribe. Any additional findings or plans will be noted.
--- NOTE | 2022-01-04 13:01 | P.PN ---
Subjective Progress Note Date: 01/04/22 HISTORY OF PRESENT ILLNESS: This is a 61-year-old female with a past medical history significant for chronic kidney disease, liver disease with previous paracentesis in September 2021, hypertension, and GERD. Patient does not follow with a product sales engineer. We have been asked to see the patient in consultation for chest pain and abnormal troponins. Patient examined at the bedside. Patient states she has not been taking her antihypertensive medications recently. She states that she went to see her kidney doctor a couple days ago and he wanted her to increase her blood pressure medications. She states that she took them all yesterday morning and begin that feeling well. She states that she began to feel palpitations, mild chest pressure, and heartburn. She denies having any shortness of breath. She denies having any chest pain. Patients blood pressure has been significantly elevated since coming to the emergency room with a systolic ranging between 170 and 200. * EKG reveals sinus tachycardia with a rate of 106. No signs of acute ischemia. LVH. * Chest xray negative for acute process * Laboratory data: WBC 5.7. Hemoglobin 8.3. Platelet count 83. Sodium 130. Potassium 5.2. BUN 39. Creatinine 3.14. ProBNP 3520. Troponin 0.194. 0.177. 0.156. * Current home cardiac medications include Lasix 20 mg daily, Aldactone 25 mg daily, and hydralazine 25 mg 3 times a day 01/04/2022 Patient examined this morning at the bedside. She denies chest pain or pressure. She denies shortness of breath. She remains on IV Lasix per nephrology. Patient's blood pressure has improved since yesterday with a recent reading of 143/87. PHYSICAL EXAM: VITAL SIGNS: Reviewed. GENERAL: Well-developed in no acute distress. HEENT: Head is normocephalic. Pupils are equal, round. Sclerae anicteric. Mucous membranes of the mouth are moist. Neck supple. No JVD or thyromegaly LUNGS: Respirations even and unlabored. Lungs diminished to auscultation bilaterally. HEART: Regular rate and rhythm. S1 and S2 heard. ABDOMEN: Soft. Distended. Nontender. EXTREMITIES: Normal range of motion. No clubbing or cyanosis. Peripheral pulses intact. 1-2+ lower extremity edema NEUROLOGIC: Awake and alert. Oriented x 3. ASSESSMENT: Generalized malaise Palpitations Hypertensive urgency Medication noncompliance Acute on chronic kidney disease Abnormal troponins, likely secondary to above, no signs of ACS Volume overloaded, possible right sided heart failure Liver disease History of paracentesis, September 2021 PLAN: 2D echo ordered. Await results Continue to monitor blood pressure Patient scheduled for paracentesis tomorrow Nothing by mouth at midnight Patient to undergo Lexiscan stress test tomorrow Further recommendations pending patient course Nurse practitioner note has been reviewed by physician. Signing provider agrees with the documented findings, assessment, and plan of care. Objective - Vital Signs Vital signs: Vital Signs Temp 97.9 F 01/04/22 09:10 Pulse 77 01/04/22 09:10 Resp 16 01/04/22 09:10 BP 143/87 01/04/22 09:10 Pulse Ox 98 01/04/22 09:10 Intake & Output 01/03/22 01/04/22 01/04/22 18:59 06:59 18:59 Intake Total 420 118 Output Total 400 250 Balance 20 -132 Intake: Oral 420 118 Output: Urine 400 250 Other: Voiding Method Toilet Toilet # Voids 3 - Labs CBC & Chem 7: 01/03/22 08:08 01/04/22 10:17 Labs: Abnormal Lab Results - Last 24 Hours (Table) 01/03/22 01/03/22 01/03/22 Range/Units 08:08 08:08 Unknown Sodium (137-145) mmol/L Chloride (98-107) mmol/L Carbon Dioxide (22-30) mmol/L BUN (7-17) mg/dL Creatinine (0.52-1.04) mg/dL Glucose (74-99) mg/dL Calcium (8.4-10.2) mg/dL Iron 33 L (50-170) ug/dL % Saturation 8.39 L (12.00-45.00) AST (14-36) U/L Albumin (3.5-5.0) g/dL HDL Cholesterol 27.10 L (40.00-60.00) mg/dL Urine Protein 2+ H (Negative) Urine Blood Trace H (Negative) Ur Leukocyte Esterase Trace H (Negative) Urine Mucus Rare H (None) /hpf 01/04/22 Range/Units 10:17 Sodium 136 L (137-145) mmol/L Chloride 113 H (98-107) mmol/L Carbon Dioxide 17 L (22-30) mmol/L BUN 42 H (7-17) mg/dL Creatinine 3.42 H (0.52-1.04) mg/dL Glucose 132 H (74-99) mg/dL Calcium 8.1 L (8.4-10.2) mg/dL Iron (50-170) ug/dL % Saturation (12.00-45.00) AST 49 H (14-36) U/L Albumin 2.9 L (3.5-5.0) g/dL HDL Cholesterol (40.00-60.00) mg/dL Urine Protein (Negative) Urine Blood (Negative) Ur Leukocyte Esterase (Negative) Urine Mucus (None) /hpf
--- NOTE | 2022-01-04 13:35 | P.PN ---
Subjective Progress Note Date: 01/04/22 Principal diagnosis: Ascites, history of hepatitis A 61-year-old female seen for follow-up for history of hepatitis PNC diagnosed over 30 years ago without any treatment. Patient presented for overall weakness, fatigue and racing heart. She has a history of chronic kidney disease with acute kidney injury. She has end-stage liver disease and has been managed by her PCP Dr. Rios and undergoes paracentesis approximately every 3 months at this time. Last paracentesis was 09/23/2021. Patient denies any fevers or chills, denies abdominal pain. States she does feel distended and needs paracentesis. Interventional radiology was consulted for paracentesis. Objective - Vital Signs Vital signs: Vital Signs Temp 97.9 F 01/04/22 09:10 Pulse 77 01/04/22 09:10 Resp 16 01/04/22 09:10 BP 143/87 01/04/22 09:10 Pulse Ox 98 01/04/22 09:10 Intake & Output 01/03/22 01/04/22 01/04/22 18:59 06:59 18:59 Intake Total 420 118 Output Total 400 250 Balance 20 -132 Intake: Oral 420 118 Output: Urine 400 250 Other: Voiding Method Toilet Toilet # Voids 3 - Exam General appearance: The patient is alert, oriented, appears in no acute distress. HET: Head is normocephalic and atraumatic. Conjunctiva pink. Sclera anicteric. Neck: Supple without lymphadenopathy. Abdomen: Soft, nontender, distended/anasarca. Umbilical hernia, easily reducible. No guarding or rigidity. Extremities: Normal skin color and turgor. No pedal edema Skin: No rashes, no jaundice Neurological: No focal deficits. Alert and oriented x 3. - Labs CBC & Chem 7: 01/03/22 08:08 01/04/22 10:17 Labs: Abnormal Lab Results - Last 24 Hours (Table) 01/03/22 01/03/22 01/03/22 Range/Units 08:08 08:08 Unknown Sodium (137-145) mmol/L Chloride (98-107) mmol/L Carbon Dioxide (22-30) mmol/L BUN (7-17) mg/dL Creatinine (0.52-1.04) mg/dL Glucose (74-99) mg/dL Calcium (8.4-10.2) mg/dL Iron 33 L (50-170) ug/dL % Saturation 8.39 L (12.00-45.00) AST (14-36) U/L Albumin (3.5-5.0) g/dL HDL Cholesterol 27.10 L (40.00-60.00) mg/dL Urine Protein 2+ H (Negative) Urine Blood Trace H (Negative) Ur Leukocyte Esterase Trace H (Negative) Urine Mucus Rare H (None) /hpf 01/04/22 Range/Units 10:17 Sodium 136 L (137-145) mmol/L Chloride 113 H (98-107) mmol/L Carbon Dioxide 17 L (22-30) mmol/L BUN 42 H (7-17) mg/dL Creatinine 3.42 H (0.52-1.04) mg/dL Glucose 132 H (74-99) mg/dL Calcium 8.1 L (8.4-10.2) mg/dL Iron (50-170) ug/dL % Saturation (12.00-45.00) AST 49 H (14-36) U/L Albumin 2.9 L (3.5-5.0) g/dL HDL Cholesterol (40.00-60.00) mg/dL Urine Protein (Negative) Urine Blood (Negative) Ur Leukocyte Esterase (Negative) Urine Mucus (None) /hpf Assessment and Plan (1) Cirrhosis of liver Narrative/Plan: This is a 61-year-old female with a long-standing history of reported hepatitis B and C diagnosed 30 years ago. Patient states she has never received treatment.states she followed up with [facility] 30 years ago.she states they told her at that time that she had cirrhosis of the liver and was not a candidate for liver transplant. She also stated she has not seen a teaching associate or [facility] in over 10 years. She believes she saw Sofía Spicer about 10 years ago. States at one time that they wanted to treat her with interferon but she financially cannot afford the treatment. She has since then had been diagnosed with cirrhosis of the liver with ascites, she is m anaged by her PCP Dr. Rios. Normally takes Lasix 20 mg daily and Aldactone 25 mg daily. Recently diagnosed with chronic kidney disease and has seen Dr. Witt in the outpatient setting. her last hepatitis panel in April 2021 showed hepatitis B antibody nonreactive, hepatitis C antibody reactive prior to that lap shown 2013 hepatitis C RNA positive hepatitis C antibody positive quantitative [id number] HCV RNA 6.3 a genotype IIIa. Jasbir was admitted with racing heart, recently started on new medication she states. She had elevated troponins and is being followed by cardiology as well as nephrology for acute kidney disease. The patient's labs are consistent with pancytopenia and chronic liver disease. WBC 3.7 hemoglobin 7.7 hematocrit 24 platelet count 86,000 INR 1.0total bilirubin 0.7 AST 47 AST 24 alkaline phosphatase 57 Current Visit: Yes Status: Acute Code(s): K74.60 - UNSPECIFIED CIRRHOSIS OF LIVER SNOMED Code(s): 55442140 (2) History of hepatitis C Current Visit: Yes Status: Acute Code(s): Z86.19 - PERSONAL HISTORY OF OTHER INFECTIOUS AND PARASITIC DISEASES SNOMED Code(s): 19640761340811 (3) Acute kidney injury Narrative/Plan: Nephrology following closely, Aldactone held at this time Current Visit: Yes Status: Acute Code(s): N17.9 - ACUTE KIDNEY FAILURE, UNSPECIFIED SNOMED Code(s): 88569220 (4) Chronic kidney disease Narrative/Plan: Stage IV secondary to hepatorenal syndrome Current Visit: Yes Status: Acute Code(s): N18.9 - CHRONIC KIDNEY DISEASE, UNSPECIFIED SNOMED Code(s): 921584605 (5) Ascites Current Visit: Yes Status: Acute Code(s): R18.8 - OTHER ASCITES SNOMED Code(s): 713895093 (6) Hyperkalemia Current Visit: Yes Status: Acute Code(s): E87.5 - HYPERKALEMIA SNOMED Code(s): 95432251 Plan: 1. Continue symptomatic and supportive care 2. Interventional radiology consulted for paracentesis with fluid studies 3. We'll defer diuretic treatment to nephrology at this time 4. Hepatitis B Antibody/antigen ordered, hepatitis C quantitative and genotype ordered 5. Repeat CBC daily 6. Low sodium diet 7. Recommend close outpatient follow-up and surveillance with gastroenterology Thank you for this consultation, we will continue to follow. Dr. Rachel Bose I agree with the dictator's note, documented as a scribe by Kristie Osorio.
[2022-01-04] MEDS: MORPHINE SULFATE 4 MG/ML SYRINGE IV PRN ×2 (15:05→23:58)
--- NOTE | 2022-01-04 15:11 | P.PN ---
Subjective Progress Note Date: 01/04/22 This is a 61-year-old female patient with long-standing history of hepatitis C, end-stage liver disease, significant ascites with history of prior paracentesis- reports last one , presented to the ER with hypertension urgency, chest pain, positive ascites and multiple other medical issues. Noncompliant with medications, ER reported prescription bottles brought in by patient were prescribed in 2018. Last paracentesis reported 09/23/2021. Denies nausea vomiting or abdominal pain. WBC 3.7 hemoglobin 7.7 hematocrit 24 platelet count 86, INR 1. sodium 137 potassium 5.2, BUN 40 creatinine 3.13 glucose 146 total bilirubin 0.7 AST 47 and 2023 alk phos 57. ProBNP 3520 .EKG reported sinus tach ycardia, Troponin 0.194, 0.177, 0.156. Currently denies chest pain, palpitations or shortness of breath. Chest x-ray reported no acute pulmonary process. Blood pressure initially 193/67, mild tachycardia with heart rates in the low 100s respiratory rate 20, maintaining O2 sats of 100% on room air. Lactic acid 2.8, receiving IV fluid hydration. Beta blockers initiated, along with Norvasc 01/04/2022 Denies any abdominal pain .Paracentesis pending. Maintaining O2 sats in the high 90s on room air Receiving IV iron. BUN 42, creatinine 3.42. Afebrile. Blood pressure better controlled.Denies chest pain, palpitations or shortness of breath. Objective - Vital Signs Vital signs: Vital Signs Temp 97.9 F 01/04/22 09:10 Pulse 77 01/04/22 09:10 Resp 16 01/04/22 09:10 BP 143/87 01/04/22 09:10 Pulse Ox 98 01/04/22 09:10 Intake & Output 01/03/22 01/04/22 01/04/22 18:59 06:59 18:59 Intake Total 420 118 Output Total 400 250 Balance 20 -132 Intake: Oral 420 118 Output: Urine 400 250 Other: Voiding Method Toilet Toilet # Voids 3 - Exam General: [Patient awake, alert and oriented X 3, no acute distress.] HEENT: [PERRL. EOMI. No pharyngeal erythema or exudate, conjunctiva normal-pink , Sclera anicteric.] Neck: [No adenopathy.] Cardiac: [Heart regular in rate and rhythm. No S3. No S4. No clicks, rubs. No murmur.] Lungs: [Clear to auscultation bilaterally.] Abdomen: Generalized anasarca,soft, nontender, distended , positive ascites, no guarding, no rigidity, positive bowel sounds Round protruding abdomen with extensive fluid wave consistent with gross ascites, multiple ventral hernias Extremes: Positive bilateral lower extremity edema, no cyanosis no claudication normal pulses Skin: [Warm and dry ,No rash, nontender.] Neurologic: [No lateralizing deficits. CN II - XII grossly intact.] - Labs CBC & Chem 7: 01/03/22 08:08 01/04/22 10:17 Labs: Abnormal Lab Results - Last 24 Hours (Table) 01/03/22 01/03/22 01/03/22 Range/Units 08:08 08:08 Unknown Sodium (137-145) mmol/L Chloride (98-107) mmol/L Carbon Dioxide (22-30) mmol/L BUN (7-17) mg/dL Creatinine (0.52-1.04) mg/dL Glucose (74-99) mg/dL Calcium (8.4-10.2) mg/dL Iron 33 L (50-170) ug/dL % Saturation 8.39 L (12.00-45.00) AST (14-36) U/L Albumin (3.5-5.0) g/dL HDL Cholesterol 27.10 L (40.00-60.00) mg/dL Urine Protein 2+ H (Negative) Urine Blood Trace H (Negative) Ur Leukocyte Esterase Trace H (Negative) Urine Mucus Rare H (None) /hpf 01/04/22 Range/Units 10:17 Sodium 136 L (137-145) mmol/L Chloride 113 H (98-107) mmol/L Carbon Dioxide 17 L (22-30) mmol/L BUN 42 H (7-17) mg/dL Creatinine 3.42 H (0.52-1.04) mg/dL Glucose 132 H (74-99) mg/dL Calcium 8.1 L (8.4-10.2) mg/dL Iron (50-170) ug/dL % Saturation (12.00-45.00) AST 49 H (14-36) U/L Albumin 2.9 L (3.5-5.0) g/dL HDL Cholesterol (40.00-60.00) mg/dL Urine Protein (Negative) Urine Blood (Negative) Ur Leukocyte Esterase (Negative) Urine Mucus (None) /hpf Assessment and Plan Assessment: Chest pain, elevated troponins,ACS ruled out as per Cardiology Hypertensive urgency, improved Liver Cirrhosis,in a patient with history of hepatitis B and C, diagnosed 30 years ago, reports evaluated by Arvin Pittman greater than 10 years ago and reported that she was not a liver transplant candidate. Pancytopenia secondary to the above Fluid volume overload, ascites Acute on Chronic kidney disease, secondary to ATN related to hepatorenal syndrome. Baseline creatinine 2.6 Hyperkalemia Metabolic acidosis Plan: Continue current medication regime ,monitoring and symptomatic treatment. Continue on low sodium diet, fluid restrictions. Maintain antihypertensives. Echo pending.paracentesis pending. Diuretics as per nephrology. Close monitoring of renal function with repeat labs ordered for a.m. The impression and plan of care has been dictated as directed. : I performed a history and examination of this patient, discussed the same with the dictator. I agree with the dictator's note ,documented as a scribe. Any additional findings or plans will be noted.
[2022-01-04 15:35] LABS: Hepatitis B Surface AB- Quant 3.5 mIU/mL; Hepatitis B Surface Antibody Nonreactive (Nonreactive)
[2022-01-04 15:53] LABS: Hepatitis B Surface Antigen Nonreactive (Nonreactive); Hepatitis C IgG Antibody Reactive (Nonreactive)
[2022-01-05] MEDS ORDERED: CAFFEINE CITRATE 60 MG/3 ML VIAL IV PRN (05:00)
[2022-01-05] MEDS ORDERED: AMINOPHYLLINE 500 MG/20 ML VIAL IV PRN (05:00)
[2022-01-05] MEDS ORDERED: REGADENOSON 0.4 MG/5 ML SYRINGE IV PRN (06:00)
[2022-01-05] MEDS: SODIUM BICARBONATE TAB 650 MG TAB PO SCH ×3 (08:00→21:57)
[2022-01-05] MEDS: hydrALAZINE HCL 50 MG TAB PO SCH ×3 (08:00→21:56)
--- NOTE | 2022-01-05 08:00 | ECHOF ---
Referral Reason:LV function MEASUREMENTS -------- HEIGHT: 162.6 cm WEIGHT: 107.5 kg BP: RVIDd: 3.1 cm (< 3.3) IVSd: 1.4 cm (0.6 - 1.1) LVIDd: 4.4 cm (3.9 - 5.3) LVPWd: 1.2 cm (0.6 - 1.1) IVSs: 1.3 cm LVIDs: 3.4 cm LVPWs: 1.7 cm LA Diam: 3.9 cm (2.7 - 3.8) LAESV Index (A-L): 30.60 ml/m Ao Diam: 3.2 cm (2.0 - 3.7) AV Cusp: 1.8 cm (1.5 - 2.6) MV EXCURSION: 15.965 mm (> 18.000) MV EF SLOPE: 61 mm/s (70 - 150) EPSS: 0.6 cm MV E Sylvester: 1.21 m/s MV DecT: 182 ms MV A Sylvester: 1.02 m/s MV E/A Ratio: 1.19 RAP: 5.00 mmHg RVSP: 37.14 mmHg FINDINGS -------- Sinus rhythm. This was a technically adequate study. The left ventricular size is normal. There is moderate concentric left ventricular hypertrophy. O verall left ventricular systolic function is low-normal with, an EF between 50 - 55 %. The right ventricle is normal in size. LA is midly dilated 29-33ml/m2. The right atrial size is normal. The aortic valve is trileaflet, and appears structurally normal. No aortic stenosis or regurgitation. Mild mitral regurgitation is present. Mild tricuspid regurgitation present. There is mild pulmonary hypertension. The right ventricular systolic pressure, as measured by Doppler, is 37.14mmHg. There is no pulmonic regurgitation present. The aortic root size is normal. Moderate Pleural Effusion. CONCLUSIONS -------- 1. The left ventricular size is normal. 2. There is moderate concentric left ventricular hypertrophy. 3. Overall left ventricular systolic function is low-normal with, an EF between 50 - 55 %. 4. The right ventricle is normal in size. 5. LA is midly dilated 29-33ml/m2. 6. The right atrial size is normal. 7. The aortic valve is trileaflet, and appears structurally normal. No aortic stenosis or regurgitati on. 8. Mild mitral regurgitation is present. 9. Mild tricuspid regurgitation present. 10. There is mild pulmonary hypertension. 11. The right ventricular systolic pressure, as measured by Doppler, is 37.14mmHg. 12. The aortic root size is normal. 13. Moderate Pleural Effusion. [employer] METER INSTALLER: Rani Oviedo RDCS
[2022-01-05] MEDS: amLODIPine 10 MG TAB PO SCH (08:01)
[2022-01-05] MEDS: METOPROLOL TARTRATE 50 MG TAB PO SCH ×2 (08:01→20:43)
[2022-01-05] MEDS: FUROSEMIDE 10 MG/ML 4 ML VIAL IV SCH ×2 (08:02→20:43)
[2022-01-05] MEDS: ASPIRIN 81 MG PO SCH (08:03)
[2022-01-05] MEDS: ALBUMIN HUMAN 25% 50 ML in EMPTY BAG 1 BAG IVPB SCH ×8 (08:16→16:40)
[2022-01-05] MEDS: FLUTICASONE 110 MCG INHALER INHALATION SCH ×2 (08:40→19:44)
[2022-01-05 08:57] LABS: Creatinine,Urine Random 97.2 mg/dL; Protein/Creatinine Ratio,Urine 1.872
[2022-01-05] MEDS: SODIUM FERRIC GLUCONAT-SUCROSE 125 MG in SODIUM CHLORIDE 0.9% 100 ML IVPB SCH (09:25)
--- NOTE | 2022-01-05 11:26 | US ---
EXAMINATION TYPE: US paracentesis abd w/image DATE OF EXAM: 01/05/2022 COMPARISON: NONE HISTORY: Ascites. PROCEDURE: Maximal barrier technique was utilized. The skin overlying a suitable pocket of fluid was localized with ultrasound and the overlying skin was prepped and draped. Ultrasound was utilized with sterile technique. Lidocaine was used for local anesthesia and a skin nancy made with a scalpel. Catheter was advanced under direct ultrasound guidance into a suitable pocket of fluid and approximately 12.1 lite rs of serous fluid were removed. Catheter was withdrawn and hemostasis achieved. There is no immedi ate complication; the patient is discharged in stable condition. IMPRESSION: STATUS POST ULTRASOUND GUIDED PARACENTESIS FOR PALLIATION OF ASCITES. THIS PROCEDURE WA S PERFORMED BY THE UNDERSIGNED.
[2022-01-05 11:34] LABS: Albumin 3.2 g/dL (3.5-5.0); Calcium 8.2 mg/dL (8.4-10.2); Potassium 5.2 mmol/L (3.5-5.1); Total Bilirubin 0.8 mg/dL (0.2-1.3); Total Protein 7.4 g/dL (6.3-8.2)
--- NOTE | 2022-01-05 14:22 | P.PN ---
Subjective Progress Note Date: 01/05/22 HISTORY OF PRESENT ILLNESS: This is a 61-year-old female with a past medical history significant for chronic kidney disease, liver disease with previous paracentesis in September 2021, hypertension, and GERD. Patient does not follow with a shank rander. We have been asked to see the patient in consultation for chest pain and abnormal troponins. Patient examined at the bedside. Patient states she has not been taking her antihypertensive medications recently. She states that she went to see her kidney doctor a couple days ago and he wanted her to increase her blood pressure medications. She states that she took them all yesterday morning and begin that feeling well. She states that she began to feel palpitations, mild chest pressure, and heartburn. She denies having any shortness of breath. She denies having any chest pain. Patients blood pressure has been significantly elevated since coming to the emergency room with a systolic ranging between 170 and 200. * EKG reveals sinus tachycardia with a rate of 106. No signs of acute ischemia. LVH. * Chest xray negative for acute process * Laboratory data: WBC 5.7. Hemoglobin 8.3. Platelet count 83. Sodium 130. Potassium 5.2. BUN 39. Creatinine 3.14. ProBNP 3520. Troponin 0.194. 0.177. 0.156. * Current home cardiac medications include Lasix 20 mg daily, Aldactone 25 mg daily, and hydralazine 25 mg 3 times a day 01/04/2022 Patient examined this morning at the bedside. She denies chest pain or pressure. She denies shortness of breath. She remains on IV Lasix per nephrology. Patient's blood pressure has improved since yesterday with a recent reading of 143/87. 01/05/2022 Patient examined this morning at the bedside. Patient denies chest pain or pressure. She denies shortness of breath. Patient underwent paracentesis this morning with removal of 12.1 L of fluid. Patient was scheduled for Lexiscan stress test this morning. However patient has refused to have this done at this time. She is requesting to have stress test performed on an outpatient basis. Patient's blood pressure is significantly improved with a systolic in the 130s. Echocardiogram completed revealing ejection fraction 50-55%, mild MR, mild TR, and mild pulmonary hypertension with moderate pleural effusion. PHYSICAL EXAM: VITAL SIGNS: Reviewed. GENERAL: Well-developed in no acute distress. HEENT: Head is normocephalic. Pupils are equal, round. Sclerae anicteric. Mucous membranes of the mouth are moist. Neck supple. No JVD or thyromegaly LUNGS: Respirations even and unlabored. Lungs diminished to auscultation bilaterally. HEART: Regular rate and rhythm. S1 and S2 heard. ABDOMEN: Soft. Distended. Nontender. EXTREMITIES: Normal range of motion. No clubbing or cyanosis. Peripheral pulses intact. 1-2+ lower extremity edema NEUROLOGIC: Awake and alert. Oriented x 3. ASSESSMENT: Generalized malaise Palpitations Hypertensive urgency Medication noncompliance Acute on chronic kidney disease Abnormal troponins, likely secondary to above, no signs of ACS Volume overloaded, possible right sided heart failure Liver disease History of paracentesis, September 2021 PLAN: Continue current cardiac medications Patient currently refusing Lexiscan stress test. She is requesting to have stress test performed on an outpatient basis. Further recommendations pending patient course Nurse practitioner note has been reviewed by physician. Signing provider agrees with the documented findings, assessment, and plan of care. Objective - Vital Signs Vital signs: Vital Signs Temp 97.9 F 01/05/22 10:43 Pulse 67 01/05/22 10:43 Resp 18 01/05/22 10:43 BP 146/64 01/05/22 10:43 Pulse Ox 98 01/05/22 10:43 Intake & Output 01/04/22 01/05/22 01/05/22 18:59 06:59 18:59 Intake Total 290 Output Total 775 Balance 290 -775 Weight 93 kg Intake: Intake, IV Titration 50 Amount Sodium Ferric Gluconat- 50 Sucrose 125 mg In Sodium Chloride 0.9% 100 ml @ 100 mls/hr IVPB DAILY [facility] Rx#:[id number] Oral 240 Output: Urine 775 Other: Voiding Method Toilet Toilet # Voids 1 - Labs CBC & Chem 7: 01/03/22 08:08 01/05/22 10:55 Labs: Abnormal Lab Results - Last 24 Hours (Table) 01/04/22 01/05/22 Range/Units 10:17 10:55 Sodium 135 L (137-145) mmol/L Potassium 5.2 H (3.5-5.1) mmol/L Chloride 109 H (98-107) mmol/L Carbon Dioxide 20 L (22-30) mmol/L BUN 45 H (7-17) mg/dL Creatinine 3.67 H (0.52-1.04) mg/dL Glucose 126 H (74-99) mg/dL Calcium 8.2 L (8.4-10.2) mg/dL AST 44 H (14-36) U/L Albumin 3.2 L (3.5-5.0) g/dL Hep C IgG Ab Reactive A (Nonreactive)
--- NOTE | 2022-01-05 15:34 | P.PN ---
Subjective Progress Note Date: 01/05/22 Principal diagnosis: Ascites, history of hepatitis A 61-year-old female seen for follow-up for history of hepatitis PNC diagnosed over 30 years ago without any treatment. Patient presented for overall weakness, fatigue and racing heart. She has a history of chronic kidney disease with acute kidney injury. She has end-stage liver disease and has been managed by her PCP Dr. Rios and undergoes paracentesis approximately every 3 months at this time. Last paracentesis was 09/23/2021. Patient denies any fevers or chills, denies abdominal pain. States she does feel distended and needs paracentesis. Interventional radiology was consulted for paracentesis. She underwent paracentesis today with 12 L removed. She states she is feeling better. She is feeling tired. Hepatitis B antigen came back negative. Hepatitis C quantitative and genotype pending. Objective - Vital Signs Vital signs: Vital Signs Temp 98.3 F 01/05/22 14:50 Pulse 68 01/05/22 14:50 Resp 18 01/05/22 14:50 BP 117/55 01/05/22 14:50 Pulse Ox 96 01/05/22 14:50 Intake & Output 01/04/22 01/05/22 01/05/22 18:59 06:59 18:59 Intake Total 290 Output Total 775 Balance 290 -775 Weight 93 kg Intake: Intake, IV Titration 50 Amount Sodium Ferric Gluconat- 50 Sucrose 125 mg In Sodium Chloride 0.9% 100 ml @ 100 mls/hr IVPB DAILY [facility] Rx#:[id number] Oral 240 Output: Urine 775 Other: Voiding Method Toilet Toilet # Voids 1 - Exam General appearance: The patient is alert, oriented, appears in no acute distress. HET: Head is normocephalic and atraumatic. Conjunctiva pink. Sclera anicteric. Neck: Supple without lymphadenopathy. Abdomen: Soft, nontender, nondistended. Umbilical hernia, easily reducible. No guarding or rigidity. Extremities: Normal skin color and turgor. No pedal edema Skin: No rashes, no jaundice Neurological: No focal deficits. Alert and oriented x 3. - Labs CBC & Chem 7: 01/03/22 08:08 01/05/22 10:55 Labs: Abnormal Lab Results - Last 24 Hours (Table) 01/04/22 01/05/22 Range/Units 10:17 10:55 Sodium 135 L (137-145) mmol/L Potassium 5.2 H (3.5-5.1) mmol/L Chloride 109 H (98-107) mmol/L Carbon Dioxide 20 L (22-30) mmol/L BUN 45 H (7-17) mg/dL Creatinine 3.67 H (0.52-1.04) mg/dL Glucose 126 H (74-99) mg/dL Calcium 8.2 L (8.4-10.2) mg/dL AST 44 H (14-36) U/L Albumin 3.2 L (3.5-5.0) g/dL Hep C IgG Ab Reactive A (Nonreactive) Hepatitis C RNA Quant [id number] H (0-0) IU/mL Assessment and Plan (1) Cirrhosis of liver Narrative/Plan: This is a 61-year-old female with a long-standing history of reported hepatitis B and C diagnosed 30 years ago. Patient states she has never received treatment.states she followed up with [facility] 30 years ago.she states they told her at that time that she had cirrhosis of the liver and was not a candidate for liver transplant. She also stated she has not seen a county administrator or [facility] in over 10 years. She believes she saw Sofía Spicer about 10 years ago. States at one time that they wanted to treat her with interferon but she financially cannot afford the treatment. She has since then had been diagnosed with cirrhosis of the liver with ascites, she is managed by her PCP Dr. Rios. Normally takes Lasix 20 mg daily and Aldactone 25 mg daily. Recently diagnosed with chronic kidney disease and has seen Dr. Witt in the outpatient setting. her last hepatitis panel in April 2021 showed hepatitis B antibody nonreactive, hepatitis C antibody reactive prior to that lap shown 2013 hepatitis C RNA positive hepatitis C antibody positive quantitative [id number] HCV RNA 6.3 a genotype IIIa. Pronation was admitted with racing heart, recently started on new medication she states. She had elevated troponins and is being followed by cardiology as well as nephrology for acute kidney disease. The patient's labs are consistent with pancytopenia and chronic liver disease. WBC 3.7 hemoglobin 7.7 hematocrit 24 platelet count 86,000 INR 1.0total bilirubin 0.7 AST 47 AST 24 alkaline phosphatase 57 Current Visit: Yes Status: Acute Code(s): K74.60 - UNSPECIFIED CIRRHOSIS OF LIVER SNOMED Code(s): 30131553 (2) History of hepatitis C Current Visit: Yes Status: Acute Code(s): Z86.19 - PERSONAL HISTORY OF OTHER INFECTIOUS AND PARASITIC DISEASES SNOMED Code(s): 19748922801904 (3) Acute kidney injury Narrative/Plan: Nephrology following closely, Aldactone held at this time Current Visit: Yes Status: Acute Code(s): N17.9 - ACUTE KIDNEY FAILURE, UNSPECIFIED SNOMED Code(s): 24263752 (4) Chronic kidney disease Narrative/Plan: Stage IV secondary to hepatorenal syndrome Current Visit: Yes Status: Acute Code(s): N18.9 - CHRONIC KIDNEY DISEASE, UNSPECIFIED SNOMED Code(s): 839030841 (5) Ascites Narrative/Plan: Status post paracentesis Current Visit: Yes Status: Acute Code(s): R18.8 - OTHER ASCITES SNOMED Code(s): 147471699 (6) Hyperkalemia Current Visit: Yes Status: Acute Code(s): E87.5 - HYPERKALEMIA SNOMED Code(s): 23217978 Plan: 1. Continue symptomatic and supportive care 2. Defer diuretic treatment to nephrology 3. Hepatitis B Antibody/antigen ordered, hepatitis C quantitative and genotype ordered 4. Low sodium diet 5. Recommend close outpatient follow-up and surveillance with gastroenterology Thank you for this consultation, we will continue to follow. Dr. Rachel Bose I agree with the dictator's note, documented as a scribe by Kristie Osorio.
--- NOTE | 2022-01-05 15:48 | P.PN ---
Subjective Progress Note Date: 01/05/22 This is a 61-year-old female patient with long-standing history of hepatitis C, end-stage liver disease, significant ascites with history of prior paracentesis- reports last one , presented to the ER with hypertension urgency, chest pain, positive ascites and multiple other medical issues. Noncompliant with medications, ER reported prescription bottles brought in by patient were prescribed in 2018. Last paracentesis reported 09/23/2021. Denies nausea vomiting or abdominal pain. WBC 3.7 hemoglobin 7.7 hematocrit 24 platelet count 86, INR 1. sodium 137 potassium 5.2, BUN 40 creatinine 3.13 glucose 146 total bilirubin 0.7 AST 47 and 2023 alk phos 57. ProBNP 3520 .EKG reported sinus tach ycardia, Troponin 0.194, 0.177, 0.156. Currently denies chest pain, palpitations or shortness of breath. Chest x-ray reported no acute pulmonary process. Blood pressure initially 193/67, mild tachycardia with heart rates in the low 100s respiratory rate 20, maintaining O2 sats of 100% on room air. Lactic acid 2.8, receiving IV fluid hydration. Beta blockers initiated, along with Norvasc 01/04/2022 Denies any abdominal pain .Paracentesis pending. Maintaining O2 sats in the high 90s on room air Receiving IV iron. BUN 42, creatinine 3.42. Afebrile. Blood pressure better controlled.Denies chest pain, palpitations or shortness of breath. 01/05/2022 complaints of nausea, no emesis. Denies chest pain, palpitations or increasing shortness of breath. Denies abdominal pain, paracentesis pending. Labs pending. Echo reported EF 55%, mild pulmonary hypertension, moderate pleural effusion. Patient is refusing to have inpatient Lexiscan stress test, r equesting outpatient. Objective - Vital Signs Vital signs: Vital Signs Temp 98.3 F 01/05/22 14:50 Pulse 68 01/05/22 14:50 Resp 18 01/05/22 14:50 BP 117/55 01/05/22 14:50 Pulse Ox 96 01/05/22 14:50 Intake & Output 01/04/22 01/05/22 01/05/22 18:59 06:59 18:59 Intake Total 290 Output Total 775 Balance 290 -775 Weight 93 kg Intake: Intake, IV Titration 50 Amount Sodium Ferric Gluconat- 50 Sucrose 125 mg In Sodium Chloride 0.9% 100 ml @ 100 mls/hr IVPB DAILY [facility] Rx#:[id number] Oral 240 Output: Urine 775 Other: Voiding Method Toilet Toilet # Voids 1 - Exam General: [Patient awake, alert and oriented X 3, no acute distress.] HEENT: [PERRL. EOMI. No pharyngeal erythema or exudate, conjunctiva normal- pink, Sclera anicteric.] Neck: [No adenopathy.] Cardiac: [Heart regular in rate and rhythm. No S3. No S4. No clicks, rubs. No murmur.] Lungs: [Clear to auscultation bilaterally.] Abdomen: Generalized anasarca,soft, nontender, distended , positive ascites, no guarding, no rigidity, positive bowel sounds Round protruding abdomen with extensive fluid wave consistent with gross ascites, multiple ventral hernias Extremes: Positive bilateral lower extremity edema, no cyanosis no claudication normal pulses Skin: [Warm and dry ,No rash, nontender.] Neurologic: [No lateralizing deficits. CN II - XII grossly intact.] - Labs CBC & Chem 7: 01/03/22 08:08 01/05/22 10:55 Labs: Abnormal Lab Results - Last 24 Hours (Table) 01/04/22 01/05/22 Range/Units 10:17 10:55 Sodium 135 L (137-145) mmol/L Potassium 5.2 H (3.5-5.1) mmol/L Chloride 109 H (98-107) mmol/L Carbon Dioxide 20 L (22-30) mmol/L BUN 45 H (7-17) mg/dL Creatinine 3.67 H (0.52-1.04) mg/dL Glucose 126 H (74-99) mg/dL Calcium 8.2 L (8.4-10.2) mg/dL AST 44 H (14-36) U/L Albumin 3.2 L (3.5-5.0) g/dL Hep C IgG Ab Reactive A (Nonreactive) Hepatitis C RNA Quant [id number] H (0-0) IU/mL Assessment and Plan Assessment: Chest pain, elevated troponins,ACS ruled out as per Cardiology Hypertensive urgency, improved Liver Cirrhosis,in a patient with history of hepatitis B and C, diagnosed 30 years ago, reports evaluated by Arvin Pittman greater than 10 years ago and reported that she was not a liver transplant candidate. Pancytopenia secondary to the above Fluid volume overload, ascites Acute on Chronic kidney disease, secondary to ATN related to hepatorenal syndrome. Baseline creatinine 2.6 Hyperkalemia Metabolic acidosis Plan: Continue current medication regime ,monitoring and symptomatic treatment. Continue on antihypertensives, low sodium diet, fluid restrictions. Paracentesis pending. Diuretics as per nephrology. Close monitoring of renal function with repeat labs ordered for a.m. discharge planning in progress, pending final dc rec. and clearance perp GI. The impression and plan of care has been dictated as directed. : I performed a history and examination of this patient, discussed the same with the dictator. I agree with the dictator's note ,documented as a scribe. Any additional findings or plans will be noted.
[2022-01-05] MEDS: KETOROLAC 0.5% OPHTH DROPS 5 ML BTL BOTH EYES SCH (21:57)
[2022-01-05 22:54] LABS: Appearance,BF Slightly Cloudy
[2022-01-06 04:11] LABS: Albumin, Fluid Source Ascites; T. Protein, Body Fluid Source Ascites; Total Protein, Body Fluid 1390 mg/dL
[2022-01-06] MEDS: FLUTICASONE 110 MCG INHALER INHALATION SCH ×2 (08:43→20:25)
[2022-01-06] MEDS: SODIUM FERRIC GLUCONAT-SUCROSE 125 MG in SODIUM CHLORIDE 0.9% 100 ML IVPB SCH (09:02)
[2022-01-06] MEDS: hydrALAZINE HCL 50 MG TAB PO SCH ×3 (09:15→21:14)
[2022-01-06] MEDS: SODIUM BICARBONATE TAB 650 MG TAB PO SCH ×3 (09:15→21:14)
[2022-01-06] MEDS: amLODIPine 10 MG TAB PO SCH (09:15)
[2022-01-06] MEDS: METOPROLOL TARTRATE 50 MG TAB PO SCH ×2 (09:16→21:14)
[2022-01-06] MEDS: ASPIRIN 81 MG PO SCH (09:16)
[2022-01-06] MEDS: KETOROLAC 0.5% OPHTH DROPS 5 ML BTL BOTH EYES SCH ×4 (09:17→21:16)
[2022-01-06] MEDS: FUROSEMIDE 10 MG/ML 4 ML VIAL IV SCH ×2 (10:57→21:14)
--- NOTE | 2022-01-06 11:14 | P.PN ---
Subjective Progress Note Date: 01/06/22 Principal diagnosis: Ascites, history of hepatitis A 61-year-old female seen for follow-up for history of hepatitis C diagnosed over 30 years ago without any treatment. Patient presented for overall weakness, fatigue and racing heart. She has a history of chronic kidney disease with acute kidney injury. She has end-stage liver disease and has been managed by her PCP Dr. Rios and undergoes paracentesis approximately every 3 months at this time. Last paracentesis was 09/23/2021. Patient denies any fevers or chills, denies abdominal pain. She underwent paracentesis yesterday with 12 L removed. She states she is feeling better. Hepatitis C RNA came back 213,000, genotype still pending. Fluid studies consistent with cirrhosis of the liver, cytology pending. Objective - Vital Signs Vital signs: Vital Signs Temp 98.9 F 01/06/22 04:50 Pulse 77 01/06/22 04:50 Resp 18 01/06/22 04:50 BP 119/60 01/06/22 04:50 Pulse Ox 95 01/06/22 04:50 Intake & Output 01/05/22 01/06/22 01/06/22 18:59 06:59 18:59 Intake Total 240 Output Total 360 400 Balance -120 -400 Intake: Oral 240 Output: Urine 200 400 Post Void Residual 160 Other: Voiding Method Toilet # Voids 2 - Exam General appearance: The patient is alert, oriented, appears in no acute distress. HET: Head is normocephalic and atraumatic. Conjunctiva pink. Sclera anicteric. Neck: Supple without lymphadenopathy. Abdomen: Soft, nontender, nondistended. Umbilical hernia, easily reducible. No guarding or rigidity. Extremities: Normal skin color and turgor. No pedal edema Skin: No rashes, no jaundice Neurological: No focal deficits. Alert and oriented x 3. - Labs CBC & Chem 7: 01/03/22 08:08 01/05/22 10:55 Labs: Abnormal Lab Results - Last 24 Hours (Table) 01/04/22 01/05/22 Range/Units 10:17 10:55 Sodium 135 L (137-145) mmol/L Potassium 5.2 H (3.5-5.1) mmol/L Chloride 109 H (98-107) mmol/L Carbon Dioxide 20 L (22-30) mmol/L BUN 45 H (7-17) mg/dL Creatinine 3.67 H (0.52-1.04) mg/dL Glucose 126 H (74-99) mg/dL Calcium 8.2 L (8.4-10.2) mg/dL AST 44 H (14-36) U/L Albumin 3.2 L (3.5-5.0) g/dL Hepatitis C RNA Quant [id number] H (0-0) IU/mL Assessment and Plan (1) Cirrhosis of liver Narrative/Plan: This is a 61-year-old female with a long-standing history of reported hepatitis B and C diagnosed 30 years ago. Patient states she has never received treatment.states she followed up with [facility] 30 years ago.she states they told her at that time that she had cirrhosis of the liver and was not a candidate for liver transplant. She also stated she has not seen a kitchen work supervisor or [facility] in over 10 years. She believes she saw Sofía Spicer about 10 years ago. States at one time that they wanted to treat her with interferon but she financially cannot afford the treatment. She has since then had been diagnosed with cirrhosis of the liver with ascites, she is managed by her PCP Dr. Rios. Normally takes Lasix 20 mg daily and Aldactone 25 mg daily. Recently diagnosed with chronic kidney disease and has seen Dr. Witt in the outpatient setting. her last hepatitis panel in April 2021 showed hepatitis B antibody nonreactive, hepatitis C antibody reactive prior to that lap shown 2013 hepatitis C RNA positive hepatitis C antibody positive quantitative [id number] HCV RNA 6.3 a genotype IIIa. Pronation was admitted with racing heart, recently started on new medication she states. She had elevated troponins and is being followed by cardiology as well as nephrology for acute kidney disease. The patient's labs are consistent with pancytopenia and chronic liver disease. WBC 3.7 hemoglobin 7.7 hematocrit 24 platelet count 86,000 INR 1.0total bilirubin 0.7 AST 47 AST 24 alkaline phosphatase 57 Current Visit: Yes Status: Acute Code(s): K74.60 - UNSPECIFIED CIRRHOSIS OF LIVER SNOMED Code(s): 51653712 (2) History of hepatitis C Current Visit: Yes Status: Acute Code(s): Z86.19 - PERSONAL HISTORY OF OTHER INFECTIOUS AND PARASITIC DISEASES SNOMED Code(s): 63183314854776 (3) Acute kidney injury Narrative/Plan: Nephrology following closely, Aldactone held at this time Current Visit: Yes Status: Acute Code(s): N17.9 - ACUTE KIDNEY FAILURE, UNSPECIFIED SNOMED Code(s): 11996596 (4) Chronic kidney disease Narrative/Plan: Stage IV secondary to hepatorenal syndrome Current Visit: Yes Status: Acute Code(s): N18.9 - CHRONIC KIDNEY DISEASE, UNSPECIFIED SNOMED Code(s): 219472390 (5) Ascites Narrative/Plan: Status post paracentesis Current Visit: Yes Status: Acute Code(s): R18.8 - OTHER ASCITES SNOMED Code(s): 866683480 (6) Hyperkalemia Current Visit: Yes Status: Acute Code(s): E87.5 - HYPERKALEMIA SNOMED Code(s): 41550887 Plan: 1. Continue symptomatic and supportive care 2. Defer diuretic treatment to nephrology 3. Hepatitis B Antibody/antigen ordered, hepatitis C quantitative and genotype ordered 4. Low sodium diet 5. Recommend close outpatient follow-up and surveillance with gastroenterology. Will discuss further hepatitis C treatment once genotype resulted Thank you for this consultation, we will continue to follow. Dr. Rachel Bose I agree with the dictator's note, documented as a scribe by Kristie Osorio.
[2022-01-06 12:07] LABS: Calcium 7.7 mg/dL (8.4-10.2); Potassium 5.1 mmol/L (3.5-5.1)
--- NOTE | 2022-01-06 12:46 | P.PN ---
Subjective Patient is seen for follow-up for acute kidney injury and top of chronic kidney disease. She has underlying chronic liver disease and is being diuresed. Maintained on Lasix 40 mg IV every 12 hours Reports good urine output. Status post paracentesis yesterday with 12 L of serous fluid removed. Patient is complaining of pain in the left flank area. It is not moving down into the groin. No urinary symptoms. Objective - Vital Signs Vital signs: Vital Signs Temp 98.1 F 01/06/22 09:00 Pulse 72 01/06/22 11:00 Resp 18 01/06/22 11:00 BP 142/67 01/06/22 11:00 Pulse Ox 97 01/06/22 11:00 Intake & Output 01/05/22 01/06/22 01/06/22 18:59 06:59 18:59 Intake Total 240 Output Total 360 400 Balance -120 -400 Intake: Oral 240 Output: Urine 200 400 Post Void Residual 160 Other: Voiding Method Toilet Toilet # Voids 2 - Exam Awake, comfortable, in no acute distress Examination of the heart S1 and S2 Examination lungs bilateral breath sounds are heard Abdomen is soft, distended nontender Examination lower extremity shows edema 2+ bilaterally 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 Acute kidney injury, ATN, hepatorenal syndrome. Serum creatinine continues to worsen. 2. Chronic kidney disease stage IV secondary to nephrosclerosis, baseline creatinine about 2.6-2.9 3. Hypertension, DC Norvasc due to lower extremity edema. We will try to keep minimal dose midodrine 4. Metabolic acidosis maintained on oral sodium bicarb 5. Chronic liver disease, chronic hepatitis C, not a candidate for liver transplant. Plan: Hold discharge as renal function is worse Add Sandostatin Add low-dose midodrine given the hypertension Check accurate I's and O's Continue to monitor for need for renal replacement therapy on a daily basis Continue with IV Lasix
--- NOTE | 2022-01-06 13:37 | P.PN ---
Subjective Progress Note Date: 01/06/22 HISTORY OF PRESENT ILLNESS: This is a 61-year-old female with a past medical history significant for chronic kidney disease, liver disease with previous paracentesis in September 2021, hypertension, and GERD. Patient does not follow with a drag down. We have been asked to see the patient in consultation for chest pain and abnormal troponins. Patient examined at the bedside. Patient states she has not been taking her antihypertensive medications recently. She states that she went to see her kidney doctor a couple days ago and he wanted her to increase her blood pressure medications. She states that she took them all yesterday morning and begin that feeling well. She states that she began to feel palpitations, mild chest pressure, and heartburn. She denies having any shortness of breath. She denies having any chest pain. Patients blood pressure has been significantly elevated since coming to the emergency room with a systolic ranging between 170 and 200. * EKG reveals sinus tachycardia with a rate of 106. No signs of acute ischemia. LVH. * Chest xray negative for acute process * Laboratory data: WBC 5.7. Hemoglobin 8.3. Platelet count 83. Sodium 130. Potassium 5.2. BUN 39. Creatinine 3.14. ProBNP 3520. Troponin 0.194. 0.177. 0.156. * Current home cardiac medications include Lasix 20 mg daily, Aldactone 25 mg daily, and hydralazine 25 mg 3 times a day 01/04/2022 Patient examined this morning at the bedside. She denies chest pain or pressure. She denies shortness of breath. She remains on IV Lasix per nephrology. Patient's blood pressure has improved since yesterday with a recent reading of 143/87. 01/05/2022 Patient examined this morning at the bedside. Patient denies chest pain or pressure. She denies shortness of breath. Patient underwent paracentesis this morning with removal of 12.1 L of fluid. Patient was scheduled for Lexiscan stress test this morning. However patient has refused to have this done at this time. She is requesting to have stress test performed on an outpatient basis. Patient's blood pressure is significantly improved with a systolic in the 130s. Echocardiogram completed revealing ejection fraction 50-55%, mild MR, mild TR, and mild pulmonary hypertension with moderate pleural effusion. 01/06/2022 Patient examined this morning at the bedside. Patient denies chest pain or pr essure. She denies shortness of breath. Vital signs are stable. She remains on IV Lasix per nephrology. PHYSICAL EXAM: VITAL SIGNS: Reviewed. GENERAL: Well-developed in no acute distress. HEENT: Head is normocephalic. Pupils are equal, round. Sclerae anicteric. Mucous membranes of the mouth are moist. Neck supple. No JVD or thyromegaly LUNGS: Respirations even and unlabored. Lungs diminished to auscultation bilaterally. HEART: Regular rate and rhythm. S1 and S2 heard. ABDOMEN: Soft. Distended. Nontender. EXTREMITIES: Normal range of motion. No clubbing or cyanosis. Peripheral pulses intact. 1-2+ lower extremity edema NEUROLOGIC: Awake and alert. Oriented x 3. ASSESSMENT: Generalized malaise Palpitations Hypertensive urgency Medication noncompliance Acute on chronic kidney disease Abnormal troponins, likely secondary to above, no signs of ACS Volume overloaded, possible right sided heart failure Liver disease History of paracentesis, September 2021 PLAN: Continue current cardiac medications IV Lasix per nephrology No further inpatient recommendations from a cardiac standpoint. Patient is to follow up on an outpatient basis and will have outpatient stress test performed We will sign off. Please reconsult if needed. Nurse practitioner note has been reviewed by physician. Signing provider agrees with the documented findings, assessment, and plan of care. Objective - Vital Signs Vital signs: Vital Signs Temp 98.1 F 01/06/22 09:00 Pulse 72 01/06/22 11:00 Resp 18 01/06/22 11:00 BP 142/67 01/06/22 11:00 Pulse Ox 97 01/06/22 11:00 Intake & Output 01/05/22 01/06/22 01/06/22 18:59 06:59 18:59 Intake Total 240 Output Total 360 400 150 Balance -120 -400 -150 Intake: Oral 240 Output: Urine 200 400 150 Post Void Residual 160 Other: Voiding Method Toilet Toilet # Voids 2 - Labs CBC & Chem 7: 01/03/22 08:08 01/06/22 11:33 Labs: Abnormal Lab Results - Last 24 Hours (Table) 01/04/22 01/06/22 Range/Units 10:17 11:33 Sodium 134 L (137-145) mmol/L Carbon Dioxide 19 L (22-30) mmol/L BUN 49 H (7-17) mg/dL Creatinine 3.97 H (0.52-1.04) mg/dL Glucose 168 H (74-99) mg/dL Calcium 7.7 L (8.4-10.2) mg/dL Hepatitis C RNA Quant [id number] H (0-0) IU/mL
[2022-01-06 13:55] LABS: HCV Qualitative Result DETECTED (Not detected); HCV Quant Log 6.37 (<1.08)
--- NOTE | 2022-01-06 14:29 | P.PN ---
Subjective Progress Note Date: 01/06/22 This is a 61-year-old female patient with long-standing history of hepatitis C, end-stage liver disease, significant ascites with history of prior paracentesis- reports last one , presented to the ER with hypertension urgency, chest pain, positive ascites and multiple other medical issues. Noncompliant with medications, ER reported prescription bottles brought in by patient were prescribed in 2018. Last paracentesis reported 09/23/2021. Denies nausea vomiting or abdominal pain. WBC 3.7 hemoglobin 7.7 hematocrit 24 platelet count 86, INR 1. sodium 137 potassium 5.2, BUN 40 creatinine 3.13 glucose 146 total bilirubin 0.7 AST 47 and 2023 alk phos 57. ProBNP 3520 .EKG reported sinus tach ycardia, Troponin 0.194, 0.177, 0.156. Currently denies chest pain, palpitations or shortness of breath. Chest x-ray reported no acute pulmonary process. Blood pressure initially 193/67, mild tachycardia with heart rates in the low 100s respiratory rate 20, maintaining O2 sats of 100% on room air. Lactic acid 2.8, receiving IV fluid hydration. Beta blockers initiated, along with Norvasc 01/04/2022 Denies any abdominal pain .Paracentesis pending. Maintaining O2 sats in the high 90s on room air Receiving IV iron. BUN 42, creatinine 3.42. Afebrile. Blood pressure better controlled.Denies chest pain, palpitations or shortness of breath. 01/05/2022 complaints of nausea, no emesis. Denies chest pain, palpitations or increasing shortness of breath. Denies abdominal pain, paracentesis pending. Labs pending. Echo reported EF 55%, mild pulmonary hypertension, moderate pleural effusion. Patient is refusing to have inpatient Lexiscan stress test, r equesting outpatient. 01/06/2022 and completed paracentesis yesterday was 12 L removed, cytology p ending. Significant clinical improvement. Initially planned for discharge, labs returned reporting renal function continues to worsen; BUN 49, creatinine 3.97, GFR 11. Objective - Vital Signs Vital signs: Vital Signs Temp 98.1 F 01/06/22 09:00 Pulse 72 01/06/22 11:00 Resp 18 01/06/22 11:00 BP 142/67 01/06/22 11:00 Pulse Ox 97 01/06/22 11:00 Intake & Output 01/05/22 01/06/22 01/06/22 18:59 06:59 18:59 Intake Total 240 Output Total 360 400 150 Balance -120 -400 -150 Intake: Oral 240 Output: Urine 200 400 150 Post Void Residual 160 Other: Voiding Method Toilet Toilet # Voids 2 - Exam General: [Patient awake, alert and oriented X 3, no acute distress.] HEENT: [PERRL. EOMI. No pharyngeal erythema or exudate, conjunctiva normal- pink, Sclera anicteric.] Neck: [No adenopathy.] Cardiac: [Heart regular in rate and rhythm. No S3. No S4. No clicks, rubs. No murmur.] Lungs: [Clear to auscultation bilaterally.] Abdomen: soft, nontender, nondistended , no guarding, no rigidity, positive bowel sounds Extremes: Positive bilateral lower extremity edema, no cyanosis no claudication normal pulses Skin: [Warm and dry ,No rash, nontender.] Neurologic: [No lateralizing deficits. CN II - XII grossly intact.] - Labs CBC & Chem 7: 01/03/22 08:08 01/06/22 11:33 Labs: Abnormal Lab Results - Last 24 Hours (Table) 01/03/22 01/04/22 01/06/22 Range/Units 14:31 10:17 11:33 Sodium 134 L (137-145) mmol/L Carbon Dioxide 19 L (22-30) mmol/L BUN 49 H (7-17) mg/dL Creatinine 3.97 H (0.52-1.04) mg/dL Glucose 168 H (74-99) mg/dL Calcium 7.7 L (8.4-10.2) mg/dL HCV RNA Qual (PCR) DETECTED A (Not detected) Hepatitis C RNA Quant 2,368,010 H [id number] H (<12) IU/mL HCV RNA PCR log classified copy control clerk/ml 6.37 H (<1.08) Hepatitis C Genotype 3 A Assessment and Plan Assessment: Chest pain, elevated troponins,ACS ruled out as per Cardiology Hypertensive urgency, improved Liver Cirrhosis,in a patient with history of hepatitis C, diagnosed 30 years ago, reports evaluated by Arvin Pittman greater than 10 years ago and reported that she was not a liver transplant candidate. (last hepatitis panel in April 2021 showed hepatitis B antibody nonreactive). Pancytopenia secondary to the above Fluid volume overload, ascites, status post large volume paracentesis with 12 liters drained, cytology pending. Acute on Chronic kidney disease, secondary to ATN related to hepatorenal syndrome. Baseline creatinine 2.6, worsening. Hyperkalemia Metabolic acidosis Plan: Continue current medication regime ,monitoring and symptomatic treatment. Worsening renal function, discussed with nephrology, patient will continue on Lasix IV, albumin,with midodrine and sandostatin ordered. Maintain antihypertensives, low sodium diet, fluid restrictions. The impression and plan of care has been dictated as directed. : I performed a history and examination of this patient, discussed the same with the dictator. I agree with the dictator's note ,documented as a scribe. Any additional findings or plans will be noted.
[2022-01-06] MEDS: OCTREOTIDE 100 MCG/ML INJ SQ SCH (15:36)
[2022-01-06] MEDS ORDERED: MIDODRINE 5 MG TAB PO SCH (17:30)
[2022-01-06] MEDS: MIDODRINE 5 MG TAB PO SCH (21:14)
[2022-01-07] MEDS: OCTREOTIDE 100 MCG/ML INJ SQ SCH ×3 (02:34→18:49)
[2022-01-07] MEDS: SODIUM FERRIC GLUCONAT-SUCROSE 125 MG in SODIUM CHLORIDE 0.9% 100 ML IVPB SCH (07:36)
[2022-01-07] MEDS: SODIUM BICARBONATE TAB 650 MG TAB PO SCH ×3 (07:37→21:52)
[2022-01-07] MEDS: METOPROLOL TARTRATE 50 MG TAB PO SCH ×2 (07:37→21:52)
[2022-01-07] MEDS: FUROSEMIDE 10 MG/ML 4 ML VIAL IV SCH (07:37)
[2022-01-07] MEDS: ASPIRIN 81 MG PO SCH (07:37)
[2022-01-07] MEDS: hydrALAZINE HCL 50 MG TAB PO SCH ×3 (07:37→21:52)
[2022-01-07] MEDS: MIDODRINE 5 MG TAB PO SCH ×2 (07:39→21:52)
[2022-01-07] MEDS: KETOROLAC 0.5% OPHTH DROPS 5 ML BTL BOTH EYES SCH ×4 (07:39→21:52)
[2022-01-07] MEDS: ONDANSETRON 4 MG/2 ML VIAL IVP PRN (07:49)
[2022-01-07] MEDS: FLUTICASONE 110 MCG INHALER INHALATION SCH ×2 (07:52→19:14)
[2022-01-07 11:02] VITALS: BMI 36.4
--- NOTE | 2022-01-07 12:27 | P.PN ---
Subjective Progress Note Date: 01/07/22 Principal diagnosis: Ascites, history of hepatitis A 61-year-old female seen for follow-up for history of hepatitis C diagnosed over 30 years ago without any treatment. Patient presented for overall weakness, fatigue and racing heart. She has a history of chronic kidney disease with acute kidney injury. She has end-stage liver disease and has been managed by her PCP Dr. Rios and undergoes paracentesis approximately every 3 months at this time. Last paracentesis was 09/23/2021. Patient denies any fevers or chills, denies abdominal pain. She underwent paracentesis yesterday with 12 L removed. She states she is feeling better. Hepatitis C RNA came back 213,000, genotype still pending. Fluid studies consistent with cirrhosis of the liver, cytology pending. Objective - Vital Signs Vital signs: Vital Signs Temp 98.3 F 01/07/22 07:35 Pulse 81 01/07/22 07:35 Resp 18 01/07/22 07:35 BP 125/62 01/07/22 07:35 Pulse Ox 97 01/07/22 07:35 Intake & Output 01/06/22 01/07/22 01/07/22 18:59 06:59 18:59 Intake Total 236 240 Output Total 475 200 Balance -239 -200 240 Weight 96.3 kg Intake: Oral 236 240 Output: Urine 475 200 Other: Voiding Method Toilet Toilet # Voids 1 - Labs CBC & Chem 7: 01/03/22 08:08 01/06/22 11:33 Labs: Abnormal Lab Results - Last 24 Hours (Table) 01/03/22 01/06/22 Range/Units 14:31 11:33 Sodium 134 L (137-145) mmol/L Carbon Dioxide 19 L (22-30) mmol/L BUN 49 H (7-17) mg/dL Creatinine 3.97 H (0.52-1.04) mg/dL Glucose 168 H (74-99) mg/dL Calcium 7.7 L (8.4-10.2) mg/dL HCV RNA Qual (PCR) DETECTED A (Not detected) Hepatitis C RNA Quant 2,368,010 H (<12) IU/mL HCV RNA PCR log copier operator/ml 6.37 H (<1.08) Hepatitis C Genotype 3 A Assessment and Plan (1) Cirrhosis of liver Narrative/Plan: This is a 61-year-old female with a long-standing history of reported hepatitis B and C diagnosed 30 years ago. Patient states she has never received treatment.states she followed up with [facility] 30 years ago.she states they told her at that time that she had cirrhosis of the liver and was not a candidate for liver transplant. She also stated she has not seen a electrical controls engineer or [facility] in over 10 years. She believes she saw Sofía Spicer about 10 years ago. States at one time that they wanted to treat her with interferon but she financially cannot afford the treatment. She has since then had been diagnosed with cirrhosis of the liver with ascites, she is managed by her PCP Dr. Rios. Normally takes Lasix 20 mg daily and Aldactone 25 mg daily. Recently diagnosed with chronic kidney disease and has seen Dr. Witt in the outpatient setting. her last hepatitis panel in April 2021 showed hepatitis B antibody nonreactive, hepatitis C antibody reactive prior to that l ap shown 2013 hepatitis C RNA positive hepatitis C antibody positive quantitative [id number] HCV RNA 6.3 a genotype IIIa. Pronation was admitted with racing heart, recently started on new medication she states. She had elevated troponins and is being followed by cardiology as well as nephrology for acute kidney disease. The patient's labs are consistent with pancytopenia and chronic liver disease. WBC 3.7 hemoglobin 7.7 hematocrit 24 platelet count 86,000 INR 1.0total bilirubin 0.7 AST 47 AST 24 alkaline phosphatase 57 Current Visit: Yes Status: Acute Code(s): K74.60 - UNSPECIFIED CIRRHOSIS OF LIVER SNOMED Code(s): 93838055 (2) History of hepatitis C Current Visit: Yes Status: Acute Code(s): Z86.19 - PERSONAL HISTORY OF OTHER INFECTIOUS AND PARASITIC DISEASES SNOMED Code(s): 16110350090734 (3) Acute kidney injury Narrative/Plan: Nephrology following closely, Aldactone held at this time Current Visit: Yes Status: Acute Code(s): N17.9 - ACUTE KIDNEY FAILURE, UNSPECIFIED SNOMED Code(s): 05535643 (4) Chronic kidney disease Narrative/Plan: Stage IV secondary to hepatorenal syndrome Current Visit: Yes Status: Acute Code(s): N18.9 - CHRONIC KIDNEY DISEASE, UNSPECIFIED SNOMED Code(s): 282026181 (5) Ascites Narrative/Plan: Status post paracentesis Current Visit: Yes Status: Acute Code(s): R18.8 - OTHER ASCITES SNOMED C ode(s): 122041983 (6) Hyperkalemia Current Visit: Yes Status: Acute Code(s): E87.5 - HYPERKALEMIA SNOMED Code(s): 79118170 Plan: 1. Continue symptomatic and supportive care 2. Defer diuretic treatment to nephrology 3. Hepatitis B Antibody/antigen ordered, hepatitis C quantitative and genotype ordered 4. Low sodium diet 5. Recommend close outpatient follow-up and surveillance with gastroenterology. Will discuss further hepatitis C treatment once genotype resulted 6. The patient is cleared by gastroenterology. Thank you for allowing us to participate in the care of the patient, the GI service will sign off, gastroenterology will not be available at the hospital this weekend and through next week. If further evaluation by gastroenterology is required the patient will need transfer as per the primary team's discretion. Dr. Rachel Bose I agree with the dictator's note, documented as a scribe by Kristie Osorio.
[2022-01-07 13:25] LABS: Calcium 7.9 mg/dL (8.4-10.2); Potassium 4.9 mmol/L (3.5-5.1)
--- NOTE | 2022-01-07 13:34 | P.PN ---
Subjective Progress Note Date: 01/07/22 This is a 61-year-old female patient with long-standing history of hepatitis C, end-stage liver disease, significant ascites with history of prior paracentesis- reports last one , presented to the ER with hypertension urgency, chest pain, positive ascites and multiple other medical issues. Noncompliant with medications, ER reported prescription bottles brought in by patient were prescribed in 2018. Last paracentesis reported 09/23/2021. Denies nausea vomiting or abdominal pain. WBC 3.7 hemoglobin 7.7 hematocrit 24 platelet count 86, INR 1. sodium 137 potassium 5.2, BUN 40 creatinine 3.13 glucose 146 total bilirubin 0.7 AST 47 and 2023 alk phos 57. ProBNP 3520 .EKG reported sinus tach ycardia, Troponin 0.194, 0.177, 0.156. Currently denies chest pain, palpitations or shortness of breath. Chest x-ray reported no acute pulmonary process. Blood pressure initially 193/67, mild tachycardia with heart rates in the low 100s respiratory rate 20, maintaining O2 sats of 100% on room air. Lactic acid 2.8, receiving IV fluid hydration. Beta blockers initiated, along with Norvasc 01/04/2022 Denies any abdominal pain .Paracentesis pending. Maintaining O2 sats in the high 90s on room air Receiving IV iron. BUN 42, creatinine 3.42. Afebrile. Blood pressure better controlled.Denies chest pain, palpitations or shortness of breath. 01/05/2022 complaints of nausea, no emesis. Denies chest pain, palpitations or increasing shortness of breath. Denies abdominal pain, paracentesis pending. Labs pending. Echo reported EF 55%, mild pulmonary hypertension, moderate pleural effusion. Patient is refusing to have inpatient Lexiscan stress test, r equesting outpatient. 01/06/2022 and completed paracentesis yesterday was 12 L removed, cytology p ending. Significant clinical improvement. Initially planned for discharge, labs returned reporting renal function continues to worsen; BUN 49, creatinine 3.97, GFR 11. 01/07/2022. Labs pending, diuresing well on IV push Lasix with 24-hour I&O reflecting a negative fluid balance. Low-dose Midodrin and Sandostatin.VSS. Maintaining O2 sats in the high 90s on room air. Denies abdominal pain. Denies chest pain, palpitations or shortness of breath. Objective - Vital Signs Vital signs: Vital Signs Temp 98.3 F 01/07/22 07:35 Pulse 81 01/07/22 07:35 Resp 18 01/07/22 07:35 BP 125/62 01/07/22 07:35 Pulse Ox 97 01/07/22 07:35 Intake & Output 01/06/22 01/07/22 01/07/22 18:59 06:59 18:59 Intake Total 236 240 Output Total 475 200 Balance -239 -200 240 Weight 96.3 kg 96.3 kg Intake: Oral 236 240 Output: Urine 475 200 Other: Voiding Method Toilet Toilet # Voids 1 - Exam General: [Patient awake, alert and oriented X 3, sitting up in bed, no acute distress.] HEENT: [PERRL. EOMI. No pharyngeal erythema or exudate, conjunctiva normal- pink, Sclera anicteric.] Neck: Supple, no JVD Cardiac: [Heart regular in rate and rhythm. No S3. No S4. No clicks, rubs. No murmur.] Lungs: [Clear to auscultation bilaterally.] Abdomen: soft, nontender, nondistended , no guarding, no rigidity, positive bowel sounds Extremes: Positive bilateral lower extremity edema, no cyanosis no claudication normal pulses Skin: [Warm and dry ,No rash, nontender.] Neurologic: [No lateralizing deficits. CN II - XII grossly intact.] - Labs CBC & Chem 7: 01/03/22 08:08 01/06/22 11:33 Labs: Abnormal Lab Results - Last 24 Hours (Table) 01/03/22 Range/Units 14:31 HCV RNA Qual (PCR) DETECTED A (Not detected) Hepatitis C RNA Quant 2,368,010 H (<12) IU/mL HCV RNA PCR log engraver copperplate/ml 6.37 H (<1.08) Hepatitis C Genotype 3 A Assessment and Plan Assessment: Chest pain, elevated troponins,ACS ruled out as per Cardiology Hypertensive urgency, improved Liver Cirrhosis,in a patient with history of hepatitis C, diagnosed 30 years ago, reports evaluated by Arvin Pittman greater than 10 years ago and reported that she was not a liver transplant candidate. (last hepatitis panel in April 2021 showed hepatitis B antibody nonreactive). Pancytopenia secondary to the above Fluid volume overload, ascites, status post large volume paracentesis with 12 liters drained, cytology pending. Acute on Chronic kidney disease, secondary to ATN related to hepatorenal syndrome. Baseline creatinine 2.6, worsening. Hyperkalemia Metabolic acidosis Plan: Continue current medication regime ,monitoring and symptomatic treatment. Labs pending. low sodium diet, fluid restrictions. Close monitoring of renal function. Discharge planning pending improvement in renal function. The impression and plan of care has been dictated as directed. : I performed a history and examination of this patient, discussed the same with the dictator. I agree with the dictator's note ,documented as a scribe. Any additional findings or plans will be noted.
--- NOTE | 2022-01-07 16:53 | P.PN ---
Subjective Patient is seen for follow-up for acute kidney injury and top of chronic kidney disease. She has underlying chronic liver disease and is being diuresed. Maintained on Lasix 40 mg IV every 12 hours Pt was started on sandostatin, midodrine yesterday as renal function continues to deteriorate. Discussed HD with pt today Labs were pending this morning when pt was seen . Cr has increased to 4.6 today Objective - Vital Signs Vital signs: Vital Signs Temp 98.2 F 01/07/22 12:00 Pulse 82 01/07/22 12:00 Resp 18 01/07/22 12:00 BP 124/60 01/07/22 12:00 Pulse Ox 98 01/07/22 12:00 Intake & Output 01/06/22 01/07/22 01/07/22 18:59 06:59 18:59 Intake Total 236 1180 Output Total 475 200 Balance -239 -200 1180 Weight 96.3 kg 96.3 kg Intake: IV 100 Sodium Ferric Gluconat- 100 Sucrose 125 mg In Sodium Chloride 0.9% 100 ml @ 100 mls/hr IVPB DAILY EBONIE Rx#:[id number] Oral 236 1080 Output: Urine 475 200 Other: Voiding Method Toilet Toilet Toilet # Voids 1 - Exam Awake, comfortable, in no acute distress Examination of the heart S1 and S2 Examination lungs bilateral breath sounds are heard Abdomen is soft, distended nontender Examination lower extremity shows edema 1+ bilaterally GAMING DIRECTOR exam grossly intact - Labs CBC & Chem 7: 01/03/22 08:08 01/07/22 12:21 Labs: Abnormal Lab Results - Last 24 Hours (Table) 01/07/22 Range/Units 12:21 Sodium 134 L (137-145) mmol/L Carbon Dioxide 21 L (22-30) mmol/L BUN 51 H (7-17) mg/dL Creatinine 4.63 H (0.52-1.04) mg/dL Glucose 170 H (74-99) mg/dL Calcium 7.9 L (8.4-10.2) mg/dL Assessment and Plan Assessment: 1. Acute kidney injury, ATN, hepatorenal syndrome. Serum creatinine continues to worsen. Discussed ASSOCIATE PROFESSOR OF BIOLOGY with pt. She is agreeable 2. 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 Hypertension, DC Norvasc due to lower extremity edema. We will try to keep minimal dose midodrine 4. Metabolic acidosis maintained on oral sodium bicarb 5. Chronic liver disease, chronic hepatitis C, not a candidate for liver transplant. Plan: Continue sandostatin Decrease IV lasix Given the rapid deterioration in renal function patient will need ASSOCIATE PROFESSOR OF BIOLOGY in 24-48 hrs. She wants to wait another day. Will repeat labs in am. Consult vascular sx tomorrow for dialysis cath.
[2022-01-08] MEDS: OCTREOTIDE 100 MCG/ML INJ SQ SCH ×3 (00:15→16:08)
[2022-01-08] MEDS: FLUTICASONE 110 MCG INHALER INHALATION SCH ×2 (08:19→20:06)
[2022-01-08] MEDS: ONDANSETRON 4 MG/2 ML VIAL IVP PRN (08:39)
[2022-01-08] MEDS: METOPROLOL TARTRATE 50 MG TAB PO SCH ×2 (08:40→23:04)
[2022-01-08] MEDS: ASPIRIN 81 MG PO SCH (08:40)
[2022-01-08] MEDS: hydrALAZINE HCL 50 MG TAB PO SCH ×3 (08:40→23:04)
[2022-01-08] MEDS: KETOROLAC 0.5% OPHTH DROPS 5 ML BTL BOTH EYES SCH ×4 (08:43→23:05)
[2022-01-08] MEDS: MIDODRINE 5 MG TAB PO SCH ×2 (08:43→23:05)
[2022-01-08] MEDS: SODIUM BICARBONATE TAB 650 MG TAB PO SCH ×3 (08:43→23:04)
[2022-01-08] MEDS ORDERED: FUROSEMIDE 10 MG/ML 4 ML VIAL IV SCH (09:00)
[2022-01-08 09:36] LABS: Calcium 7.7 mg/dL (8.4-10.2); Potassium 5.2 mmol/L (3.5-5.1)
--- NOTE | 2022-01-08 12:26 | P.PN ---
Subjective Patient is seen for follow-up for acute kidney injury and top of chronic kidney disease. She has underlying chronic liver disease and is being diuresed. Maintained on Lasix 40 mg IV every 12 hours Pt was started on sandostatin, midodrine as renal function continues to deteriorate. Discussed HD with patient. She would like to wait if not absolutely indicated. Serum creatinine has increased to 5.0 today however this rise is not as much as the day before. Overall patient states that she is feeling better. She denies any nausea or vomiting. Patient reports good urine output. 675 mL documented for 24 hours. Not sure if this is accurate Objective - Vital Signs Vital signs: Vital Signs Temp 97.8 F 01/08/22 08:00 Pulse 66 01/08/22 08:00 Resp 18 01/08/22 08:00 BP 142/63 01/08/22 08:00 Pulse Ox 98 01/08/22 08:00 Intake & Output 01/07/22 01/08/22 01/08/22 18:59 06:59 18:59 Intake Total 1420 368 Output Total 600 Balance 1420 -232 Weight 96.3 kg 93.6 kg Intake: IV 100 10 Invasive Line 1 10 Sodium Ferric Gluconat- 100 Sucrose 125 mg In Sodium Chloride 0.9% 100 ml @ 100 mls/hr IVPB DAILY [facility] Rx#:[id number] Oral 1320 358 Output: Urine 600 Other: Voiding Method Toilet Toilet Toilet # Voids 1 - Exam Awake, comfortable, in no acute distress Examination of the heart S1 and S2 Examination lungs bilateral breath sounds are heard Abdomen is soft, distended nontender Examination lower extremity shows no significant edema 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 Acute kidney injury, ATN, hepatorenal syndrome. Serum creatinine continues to worsen. Discussed MACHINE LEATHER TRIMMER with pt. She is agreeable but would like to wait for another 1-2 days. 2. 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 Hypertension, DC Norvasc due to lower extremity edema. We will try to keep minimal dose midodrine 4. Metabolic acidosis maintained on oral sodium bicarb 5. Chronic liver disease, chronic hepatitis C, not a candidate for liver transplant. 6. Volume overload, currently improved Plan: Change Lasix to by mouth Repeat labs in a.m. Continue with Sandostatin, midodrine and sodium bicarb
--- NOTE | 2022-01-08 13:57 | P.PN ---
Subjective Progress Note Date: 01/08/22 Principal diagnosis: End-stage liver disease, chronic kidney disease acute kidney injury Chronic liver disease not candidate for liver transplant Serum creatinine up to 5 today, patient does state she feels better currently putting out urine Objective - Vital Signs Vital signs: Vital Signs Temp 97.2 F L 01/08/22 12:00 Pulse 58 L 01/08/22 12:00 Resp 18 01/08/22 12:00 BP 138/83 01/08/22 12:00 Pulse Ox 98 01/08/22 12:00 Intake & Output 01/07/22 01/08/22 01/08/22 18:59 06:59 18:59 Intake Total 1420 638 Output Total 600 Balance 1420 38 Weight 96.3 kg 93.6 kg Intake: IV 100 20 Invasive Line 1 20 Sodium Ferric Gluconat- 100 Sucrose 125 mg In Sodium Chloride 0.9% 100 ml @ 100 mls/hr IVPB DAILY [facility] Rx#:[id number] Oral 1320 618 Output: Urine 600 Other: Voiding Method Toilet Toilet Toilet # Voids 1 - Exam General: [Patient awake, alert and oriented times 3. Patient in no acute distress.] HEENT: [PERRL. EOMI. No pharyngeal erythema or exudate.] Neck: [No adenopathy.] Cardiac: [Heart regular in rate and rhythm. No S3. No S4. No clicks, rubs. No murmur.] Lungs: [Clear to auscultation bilaterally.] Abdomen: Abdomen distended, liver enlarged, abdominal size diminished secondary to recent paracentesis Extremes: [No edema no cyanosis no claudication normal pulses] : Normal female genitalia Musculoskeletal: [No joint erythema, edema or tenderness.] Skin: [No rash.] Neurologic: [No lateralizing deficits. CN II - XII grossly intact.] Lymphatic: [No adenopathy.] - Labs CBC & Chem 7: 01/03/22 08:08 01/08/22 08:58 Labs: Abnormal Lab Results - Last 24 Hours (Table) 01/08/22 Range/Units 08:58 Sodium 135 L (137-145) mmol/L Potassium 5.2 H (3.5-5.1) mmol/L Carbon Dioxide 19 L (22-30) mmol/L BUN 56 H (7-17) mg/dL Creatinine 5.02 H (0.52-1.04) mg/dL Glucose 144 H (74-99) mg/dL Calcium 7.7 L (8.4-10.2) mg/dL Assessment and Plan (1) Acute kidney injury Current Visit: Yes Status: Acute Code(s): N17.9 - ACUTE KIDNEY FAILURE, UNSPECIFIED SNOMED Code(s): 32846697 (2) Acute kidney injury superimposed on CKD Current Visit: Yes Status: Acute Code(s): N17.9 - ACUTE KIDNEY FAILURE, UNSPECIFIED; N18.9 - CHRONIC KIDNEY DISEASE, UNSPECIFIED SNOMED Code(s): 06502203 (3) Ascites Current Visit: Yes Status: Acute Code(s): R18.8 - OTHER ASCITES SNOMED Code(s): 459098123 (4) Chest pain Current Visit: Yes Status: Acute Code(s): R07.9 - CHEST PAIN, UNSPECIFIED SNOMED Code(s): 92154159 (5) Chronic kidney disease Current Visit: Yes Status: Acute Code(s): N18.9 - CHRONIC KIDNEY DISEASE, UNSPECIFIED SNOMED Code(s): 886823293 (6) Cirrhosis of liver Current Visit: Yes Status: Acute Code(s): K74.60 - UNSPECIFIED CIRRHOSIS OF LIVER SNOMED Code(s): 35708965 (7) History of hepatitis C Current Visit: Yes Status: Acute Code(s): Z86.19 - PERSONAL HISTORY OF OTHER INFECTIOUS AND PARASITIC DISEASES SNOMED Code(s): 44909134572212 (8) Abdominal pain Current Visit: No Status: Acute Code(s): R10.9 - UNSPECIFIED ABDOMINAL PAIN SNOMED Code(s): 36984844 (9) Nausea Current Visit: No Status: Acute Code(s): R11.0 - NAUSEA SNOMED Code(s): 063999146 Plan: Consult with nephrology Patient improved being Continued to follow urine output and labs Time with Patient: Greater than 30
[2022-01-09] MEDS: OCTREOTIDE 100 MCG/ML INJ SQ SCH ×4 (01:28→23:10)
[2022-01-09] MEDS: FLUTICASONE 110 MCG INHALER INHALATION SCH ×2 (07:39→19:22)
[2022-01-09] MEDS: ASPIRIN 81 MG PO SCH (09:25)
[2022-01-09] MEDS: METOPROLOL TARTRATE 50 MG TAB PO SCH ×2 (09:26→21:44)
[2022-01-09] MEDS: SODIUM BICARBONATE TAB 650 MG TAB PO SCH ×3 (09:26→21:44)
[2022-01-09] MEDS: hydrALAZINE HCL 50 MG TAB PO SCH ×3 (09:26→21:44)
[2022-01-09] MEDS: MIDODRINE 5 MG TAB PO SCH ×2 (09:27→21:45)
[2022-01-09] MEDS: KETOROLAC 0.5% OPHTH DROPS 5 ML BTL BOTH EYES SCH ×4 (09:27→21:43)
[2022-01-09 11:25] LABS: Basophils % (A) 1 %; Eosinophils # (A) 0.5 k/uL (0-0.7); Eosinophils % (A) 9 %; HGB 7.3 gm/dL (11.4-16.0); Hypochromasia Moderate; Lymphocytes # (A) 0.6 k/uL (1.0-4.8); Lymphocytes % (A) 12 %; MCH 28.3 pg (25.0-35.0); MCHC 30.4 g/dL (31.0-37.0); Mean Platelet Volume 9.2; Monocytes # (A) 0.4 k/uL (0-1.0); Monocytes % (A) 8 %; Neutrophils # (A) 3.4 k/uL (1.3-7.7); Neutrophils % (A) 68 %; Platelet Count 117 k/uL (150-450); RBC 2.58 m/uL (3.80-5.40); RDW 15.8 % (11.5-15.5)
[2022-01-09 11:40] LABS: Albumin 2.8 g/dL (3.5-5.0); Calcium 7.6 mg/dL (8.4-10.2); Magnesium 2.1 mg/dL (1.6-2.3); Potassium 5.2 mmol/L (3.5-5.1); Total Bilirubin 0.6 mg/dL (0.2-1.3); Total Protein 6.4 g/dL (6.3-8.2)
[2022-01-09 11:47] LABS: INR 1.1 (<1.2); Prothrombin Time 11.8 sec (9.0-12.0)
--- NOTE | 2022-01-09 11:54 | P.PN ---
Subjective Patient is seen for follow-up for acute kidney injury and top of chronic kidney disease. She has underlying chronic liver disease and is being diuresed. Maintained on Lasix 40 mg IV every 12 hours Pt was started on sandostatin, midodrine as renal function continues to deteriorate. Discussed HD with patient. She would like to wait if not absolutely indicated. Serum creatinine has increased to 5.0 yesterday. Labs pending from today. Patient is complaining of some nausea this morning. She denies any diarrhea or vomiting. No chest pains or shortness of breath. I have discussed dialysis again with the patient today and she is agreeable to start if her creatinine is higher. Objective - Vital Signs Vital signs: Vital Signs Temp 97.7 F 01/09/22 09:20 Pulse 66 01/09/22 09:20 Resp 18 01/09/22 09:20 BP 144/69 01/09/22 09:20 Pulse Ox 98 01/09/22 09:20 Intake & Output 01/08/22 01/09/22 01/09/22 18:59 06:59 18:59 Intake Total 758 250 762 Output Total 800 Balance -42 250 762 Weight 93.5 kg Intake: IV 20 Invasive Line 1 20 Oral 738 250 762 Output: Urine 800 Other: Voiding Method Toilet Toilet Toilet # Voids 1 - Exam Awake, comfortable, in no acute distress Examination of the heart S1 and S2 Examination lungs bilateral breath sounds are heard Abdomen is soft, distended nontender Examination lower extremity shows no significant edema PLUM PACKER exam grossly intact - Labs CBC & Chem 7: 01/09/22 11:13 01/09/22 11:13 Labs: Abnormal Lab Results - Last 24 Hours (Table) 01/09/22 01/09/22 Range/Units 11:13 11:13 RBC 2.58 L (3.80-5.40) m/uL Hgb 7.3 L (11.4-16.0) gm/dL Hct 24.0 L (34.0-46.0) % MCHC 30.4 L (31.0-37.0) g/dL RDW 15.8 H (11.5-15.5) % Plt Count 117 L (150-450) k/uL Lymphocytes # 0.6 L (1.0-4.8) k/uL Sodium 133 L (137-145) mmol/L Potassium 5.2 H (3.5-5.1) mmol/L Carbon Dioxide 18 L (22-30) mmol/L BUN 60 H (7-17) mg/dL Creatinine 5.59 H (0.52-1.04) mg/dL Glucose 138 H (74-99) mg/dL Calcium 7.6 L (8.4-10.2) mg/dL Albumin 2.8 L (3.5-5.0) g/dL Assessment and Plan Assessment: 1. Acute kidney injury, ATN, hepatorenal syndrome. Serum creatinine continues to worsen. 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 She is agreeable if serum creatinine is higher today. 2. 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 Hypertension, DC Norvasc due to lower extremity edema. We will try to keep minimal dose midodrine 4. Metabolic acidosis maintained on oral sodium bicarb 5. Chronic liver disease, chronic hepatitis C, not a candidate for liver transplant. 6. Volume overload, currently improved Plan: Follow-up on labs. If serum creatinine is higher I will proceed with vascular surgery consult and plan for first treatment of hemodialysis tomorrow.
--- NOTE | 2022-01-09 12:21 | P.PN ---
Subjective Progress Note Date: 01/09/22 Principal diagnosis: End-stage liver disease, chronic kidney disease acute kidney injury Chronic liver disease not candidate for liver transplant Serum creatinine up to 5 today, patient does state she feels better currently putting out urine Objective - Vital Signs Vital signs: Vital Signs Temp 97.7 F 01/09/22 09:20 Pulse 66 01/09/22 09:20 Resp 18 01/09/22 09:20 BP 144/69 01/09/22 09:20 Pulse Ox 98 01/09/22 09:20 Intake & Output 01/08/22 01/09/22 01/09/22 18:59 06:59 18:59 Intake Total 758 250 762 Output Total 800 Balance -42 250 762 Weight 93.5 kg Intake: IV 20 Invasive Line 1 20 Oral 738 250 762 Output: Urine 800 Other: Voiding Method Toilet Toilet Toilet # Voids 1 - Exam General: [Patient awake, alert and oriented times 3. Patient in no acute distress.] HEENT: [PERRL. EOMI. No pharyngeal erythema or exudate.] Neck: [No adenopathy.] Cardiac: [Heart regular in rate and rhythm. No S3. No S4. No clicks, rubs. No murmur.] Lungs: [Clear to auscultation bilaterally.] Abdomen: Abdomen distended, liver enlarged, abdominal size diminished secondary to recent paracentesis Extremes: [No edema no cyanosis no claudication normal pulses] : Normal female genitalia Musculoskeletal: [No joint erythema, edema or tenderness.] Skin: [No rash.] Neurologic: [No lateralizing deficits. CN II - XII grossly intact.] Lymphatic: [No adenopathy.] - Labs CBC & Chem 7: 01/09/22 11:13 01/09/22 11:13 Labs: Abnormal Lab Results - Last 24 Hours (Table) 01/09/22 01/09/22 Range/Units 11:13 11:13 RBC 2.58 L (3.80-5.40) m/uL Hgb 7.3 L (11.4-16.0) gm/dL Hct 24.0 L (34.0-46.0) % MCHC 30.4 L (31.0-37.0) g/dL RDW 15.8 H (11.5-15.5) % Plt Count 117 L (150-450) k/uL Lymphocytes # 0.6 L (1.0-4.8) k/uL Sodium 133 L (137-145) mmol/L Potassium 5.2 H (3.5-5.1) mmol/L Carbon Dioxide 18 L (22-30) mmol/L BUN 60 H (7-17) mg/dL Creatinine 5.59 H (0.52-1.04) mg/dL Glucose 138 H (74-99) mg/dL Calcium 7.6 L (8.4-10.2) mg/dL Albumin 2.8 L (3.5-5.0) g/dL Assessment and Plan (1) Acute kidney injury Current Visit: Yes Status: Acute Code(s): N17.9 - ACUTE KIDNEY FAILURE, UNSPECIFIED SNOMED Code(s): 45942273 (2) Acute kidney injury superimposed on CKD Current Visit: Yes Status: Acute Code(s): N17.9 - ACUTE KIDNEY FAILURE, UNSPECIFIED; N18.9 - CHRONIC KIDNEY DISEASE, UNSPECIFIED SNOMED Code(s): 49945148 (3) Ascites Current Visit: Yes Status: Acute Code(s): R18.8 - OTHER ASCITES SNOMED Code(s): 391841914 (4) Chest pain Current Visit: Yes Status: Acute Code(s): R07.9 - CHEST PAIN, UNSPECIFIED SNOMED Code(s): 27881567 (5) Chronic kidney disease Current Visit: Yes Status: Acute Code(s): N18.9 - CHRONIC KIDNEY DISEASE, UNSPECIFIED SNOMED Code(s): 233563289 (6) Cirrhosis of liver Current Visit: Yes Status: Acute Code(s): K74.60 - UNSPECIFIED CIRRHOSIS OF LIVER SNOMED Code(s): 17157498 (7) History of hepatitis C Current Visit: Yes Status: Acute Code(s): Z86.19 - PERSONAL HISTORY OF OTHER INFECTIOUS AND PARASITIC DISEASES SNOMED Code(s): 04503104636441 (8) Abdominal pain Current Visit: No Status: Acute Code(s): R10.9 - UNSPECIFIED ABDOMINAL PAIN SNOMED Code(s): 19779995 (9) Nausea Current Visit: No Status: Acute Code(s): R11.0 - NAUSEA SNOMED Code(s): 127523912 Plan: Consult with nephrology Continuing diminished kidney function However urinary output has been good Continued to follow urine output and labs Time with Patient: Greater than 30
[2022-01-10 05:39] LABS: Anisocytosis Slight; Basophils % (A) 1 %; Eosinophils # (A) 0.1 k/uL (0-0.7); Eosinophils % (A) 2 %; HCT 25.3 % (34.0-46.0); HGB 7.8 gm/dL (11.4-16.0); Hypochromasia Marked; Lymphocytes # (A) 0.2 k/uL (1.0-4.8); Lymphocytes % (A) 6 %; MCH 29.1 pg (25.0-35.0); MCHC 30.8 g/dL (31.0-37.0); MCV 94.5 fL (80.0-100.0); Mean Platelet Volume 8.9; Monocytes # (A) 0.2 k/uL (0-1.0); Monocytes % (A) 6 %; Neutrophils # (A) 3.6 k/uL (1.3-7.7); Neutrophils % (A) 84 %; Platelet Count 101 k/uL (150-450); RBC 2.68 m/uL (3.80-5.40); RDW 16.2 % (11.5-15.5); WBC 4.3 k/uL (3.8-10.6)
[2022-01-10 06:47] LABS: Albumin 2.7 g/dL (3.5-5.0); Calcium 7.5 mg/dL (8.4-10.2); Potassium 5.3 mmol/L (3.5-5.1); Total Bilirubin 0.7 mg/dL (0.2-1.3); Total Protein 6.5 g/dL (6.3-8.2)
[2022-01-10] MEDS ORDERED: LACTULOSE 200 GM/300 ML (FROM 1/2 GAL JUG) RECTAL SCH (08:00)
[2022-01-10] MEDS: OCTREOTIDE 100 MCG/ML INJ SQ SCH ×2 (08:00→17:50)
[2022-01-10 08:01] LABS: Glucose,Whole Blood 163 mg/dL (75-99)
[2022-01-10] MEDS: NALOXONE 0.4 MG/ML 1 ML VIAL IV PRN ×2 (08:15→15:13)
[2022-01-10] MEDS: LACTULOSE 20 GM/30 ML CUP PO SCH ×3 (08:30→21:36)
[2022-01-10] MEDS ORDERED: LACTULOSE 20 GM/30 ML CUP PO SCH (09:00)
--- NOTE | 2022-01-10 09:00 | P.EN ---
A- team: Indication: change in responsiveness Arrived on Scene to find: patient confused Patient seen and examined at bedside. Vital signs reviewed General: ill appearing Derm: multiple area of ecchymosis, warm, dry Head: atraumatic, normocephalic, symmetric Eyes: EOMI, no lid lag, anicteric sclera Mouth: no lip lesion, mucus membranes moist Cardiovascular: S1S2 reg, no murmur, positive posterior tibial pulse bilateral, Lungs: Decreased bs bilateral, no rhonchi, no rales , no accessory muscle use Abdominal: soft, nontender to palpation, no guarding, no appreciable organomegaly limited by physcal exam Ext: no gross muscle atrophy, no edema, no contractures Neuro: CN II-XI grossly intact, no focal neuro deficits, moves all 4 extre mities spontaneously, astersix Psych:lethargic and awakes to physical stimuli, not following commands, opens eyes spontaneously Assessment: Patient with worsening renal dysfunction, hep C, and elevated ammonia level. Plan: Narcan X 1 given with sub optimal response NGT placed and lactulose given soft wrist restpraints as patient is pulling at her NGT Repat lactulose in 2 hours Disposition: Remain on 3S at this time Notified: Baljinder in person A Total of 37 minutes of critical care time was spent on the complex care of this patient. IF patient had not received stat lactulose likely wood have become more unresponsive and had respiratory distress.
[2022-01-10] MEDS: FLUTICASONE 110 MCG INHALER INHALATION SCH ×2 (09:13→20:59)
--- NOTE | 2022-01-10 10:29 | XR ---
EXAMINATION TYPE: XR chest 1V portable DATE OF EXAM: 01/10/2022 Comparison: 01/02/2022 Clinical History: 61-year-old female NG tube placement Findings: NG tube courses below the diaphragm. The tip extends down beyond the [id number]. Leftward patient rotation IS a normal cardiac and mediastinal contours. Heart borderline in size. Interstitial promine nce. No steve consolidation or pleural effusion. Impression: 1. NG tube satisfactorily enters the stomach. However, the tip is inferiorly located, beyond the fiel d of view and tip position is not assessed. 2. Rotated exam. Borderline heart size. Similar mild interstitial prominence.
[2022-01-10] MEDS ORDERED: LACTULOSE 20 GM/30 ML CUP PO ONE (10:30)
[2022-01-10] MEDS: hydrALAZINE HCL 50 MG TAB PO SCH ×3 (10:44→21:36)
[2022-01-10] MEDS: ASPIRIN 81 MG PO SCH (10:44)
[2022-01-10] MEDS: KETOROLAC 0.5% OPHTH DROPS 5 ML BTL BOTH EYES SCH ×4 (10:44→21:37)
[2022-01-10] MEDS: SODIUM BICARBONATE TAB 650 MG TAB PO SCH ×3 (10:45→21:35)
[2022-01-10] MEDS: METOPROLOL TARTRATE 50 MG TAB PO SCH ×2 (10:45→17:50)
[2022-01-10] MEDS: MIDODRINE 5 MG TAB PO SCH ×2 (10:45→21:35)
[2022-01-10 12:56] LABS: Glucose,Whole Blood 217 mg/dL (75-99)
--- NOTE | 2022-01-10 14:29 | P.GSCN ---
History of Present Illness History of present illness: 61-year-old white female history of for acute chronic renal failure I was consulted for placement of urgent dialysis catheter. Patient has a history of chronic renal renal disease, chronic liver disease metabolic acidosis patient also has history of hepatitis Neck examination neck is supple Chest is clear first and second sound normal good entry both lungs Abdomen soft nontender Femorals are 1+ bilateral plan is placement of a dialysis catheter right femoral approach risk and complication discussed Past Medical History Past Medical History: Asthma, Diabetes Mellitus, GERD/Reflux, Liver Disease Additional Past Medical History / Comment(s): Hepatitis B & C, end stage liver disease, kidney stones, cryptosporidium positive, Ascites, pancreatitis, gastroparesis. Hx Vertigo, urinary tract infection, clotting disorder, multiple hernia, hypertensive crisis 09/23/21 admitted and disharged on antihypertensive meds but patient states they made her sick and she stopped them. Patient also thinks she had covid in October as she had multiple symptoms and her son had tested positive October 14, 2021. hep b and hep c History of Any Multi-Drug Resistant Organisms: None Reported Past Surgical History: Cholecystectomy, Hysterectomy Additional Past Surgical History / Comment(s): multi large volume paracentesis Past Anesthesia/Blood Transfusion Reactions: Motion Sickness Past Psychological History: No Psychological Hx Reported Smoking Status: Former smoker Past Alcohol Use History: None Reported Additional Past Alcohol Use History / Comment(s): Smoked 10 years est, quit 1979 Past Drug Use History: Marijuana Additional Drug Use History / Comment(s): occ use of marijuana vape pen - Past Family History Mother Family Medical History: Cancer Additional Family Medical History / Comment(s): breast with mets Father Family Medical History: Cancer Additional Family Medical History / Comment(s): prostate and colon ca Medications and Allergies Home Medications Medication Instructions Recorded Confirmed Type Spironolactone [Aldactone] 25 mg PO DAILY 07/06/20 01/02/22 History Albuterol Sulfate [Ventolin HFA] 2 puff INHALATION RT-Q6H PRN 07/14/20 01/02/22 History oxyCODONE HCL [oxyCODONE HCL (IR)] 10 mg PO Q6H PRN 07/14/20 01/02/22 History Furosemide [Lasix] 20 mg PO DAILY 02/25/21 01/02/22 History Budesonide [Pulmicort Flexhaler] 1 puff IN RT-DAILY PRN 01/02/22 01/02/22 History Ketorolac 0.5% Ophth Soln [Acular 1 drops BOTH EYES QID ml 01/06/22 Rx 0.5%] Metoprolol Tartrate [Lopressor] 50 mg PO BID #90 tab 01/06/22 Rx Sodium Bicarbonate Tab 650 mg PO TID #90 tab 01/06/22 Rx amLODIPine [Norvasc] 10 mg PO DAILY #30 tab 01/06/22 Rx hydrALAZINE HCL [Apresoline] 50 mg PO TID #90 tab 01/06/22 Rx Allergies Allergy/AdvReac Type Severity Reaction Status Date / Time No Known Allergies Allergy Verified 01/02/22 13:40 Surgical - Exam Vital Signs Temp Pulse Resp BP Pulse Ox 97.5 F L 106 H 20 199/168 100 01/02/22 11:48 01/02/22 11:48 01/02/22 11:48 01/02/22 11:48 01/02/22 11:48 Results - Labs 01/10/22 04:52 01/10/22 05:32 Abnormal Lab Results - Last 24 Hours (Table) 01/10/22 01/10/22 01/10/22 Range/Units 04:52 05:32 05:32 RBC 2.68 L (3.80-5.40) m/uL Hgb 7.8 L (11.4-16.0) gm/dL Hct 25.3 L (34.0-46.0) % MCHC 30.8 L (31.0-37.0) g/dL RDW 16.2 H (11.5-15.5) % Plt Count 101 L (150-450) k/uL Lymphocytes # 0.2 L (1.0-4.8) k/uL Sodium 134 L (137-145) mmol/L Potassium 5.3 H (3.5-5.1) mmol/L Carbon Dioxide 18 L (22-30) mmol/L BUN 64 H (7-17) mg/dL Creatinine 5.63 H (0.52-1.04) mg/dL Glucose 175 H (74-99) mg/dL POC Glucose (mg/dL) (75-99) mg/dL Calcium 7.5 L (8.4-10.2) mg/dL Ammonia 145 H (<30) umol/L Albumin 2.7 L (3.5-5.0) g/dL 01/10/22 01/10/22 01/10/22 Range/Units 07:41 08:45 12:45 RBC (3.80-5.40) m/uL Hgb (11.4-16.0) gm/dL Hct (34.0-46.0) % MCHC (31.0-37.0) g/dL RDW (11.5-15.5) % Plt Count (150-450) k/uL Lymphocytes # (1.0-4.8) k/uL Sodium (137-145) mmol/L Potassium (3.5-5.1) mmol/L Carbon Dioxide (22-30) mmol/L BUN (7-17) mg/dL Creatinine (0.52-1.04) mg/dL Glucose (74-99) mg/dL POC Glucose (mg/dL) 163 H 217 H (75-99) mg/dL Calcium (8.4-10.2) mg/dL Ammonia 80 H (<30) umol/L Albumin (3.5-5.0) g/dL Diabetes panel 01/10/22 Range/Units 05:32 Sodium 134 L (137-145) mmol/L Potassium 5.3 H (3.5-5.1) mmol/L Chloride 106 (98-107) mmol/L Carbon Dioxide 18 L (22-30) mmol/L BUN 64 H (7-17) mg/dL Creatinine 5.63 H (0.52-1.04) mg/dL Glucose 175 H (74-99) mg/dL Calcium 7.5 L (8.4-10.2) mg/dL AST 31 (14-36) U/L ALT 20 (4-34) U/L Alkaline Phosphatase 41 (38-126) U/L Total Protein 6.5 (6.3-8.2) g/dL Albumin 2.7 L (3.5-5.0) g/dL Calcium panel 01/10/22 Range/Units 05:32 Calcium 7.5 L (8.4-10.2) mg/dL Albumin 2.7 L (3.5-5.0) g/dL Pituitary panel 01/10/22 Range/Units 05:32 Sodium 134 L (137-145) mmol/L Potassium 5.3 H (3.5-5.1) mmol/L Chloride 106 (98-107) mmol/L Carbon Dioxide 18 L (22-30) mmol/L BUN 64 H (7-17) mg/dL Creatinine 5.63 H (0.52-1.04) mg/dL Glucose 175 H (74-99) mg/dL Calcium 7.5 L (8.4-10.2) mg/dL Adrenal panel 01/10/22 Range/Units 05:32 Sodium 134 L (137-145) mmol/L Potassium 5.3 H (3.5-5.1) mmol/L Chloride 106 (98-107) mmol/L Carbon Dioxide 18 L (22-30) mmol/L BUN 64 H (7-17) mg/dL Creatinine 5.63 H (0.52-1.04) mg/dL Glucose 175 H (74-99) mg/dL Calcium 7.5 L (8.4-10.2) mg/dL Total Bilirubin 0.7 (0.2-1.3) mg/dL AST 31 (14-36) U/L ALT 20 (4-34) U/L Alkaline Phosphatase 41 (38-126) U/L Total Protein 6.5 (6.3-8.2) g/dL Albumin 2.7 L (3.5-5.0) g/dL
--- NOTE | 2022-01-10 14:31 | P.PCN ---
Description of Procedure: Acute chronic renal failure Posterior same Procedure placement of dialysis catheter right femoral approach Patient was seen in the room right groin was prepped and draped progress short manner 1% lidocaine for infected right groin. Ultrasound-guided micropuncture and introducer right femoral approach micropuncture guidewire was passed and 4- Albanian dilator advanced top the guidewire after that we passed a guidewire without any resistance dilator was advanced on the top of guidewire then placed dialysis catheter on the top the guidewire guidewire was removed flushed with heparin saline and Hep-Lock secured with 3-0 nylon Hernandez applied patient are to the procedure well
--- NOTE | 2022-01-10 15:02 | P.PN ---
Subjective Patient is seen for follow-up for acute kidney injury and top of chronic kidney disease. She has underlying chronic liver disease and is being diuresed. Maintained on Lasix 40 mg IV every 12 hours Pt was started on sandostatin, midodrine as renal function continues to deteriorate. Discussed HD with patient. She has been agreeable Patient was noted to be confused overnight. Ammonia level was elevated at 145. Patient has an NG tube in place for lactulose. Serum creatinine had increased to 5.6 yesterday and it remains about the same today. Vascular surgery has been consulted with plans for first treatment of hemodialysis today Objective - Vital Signs Vital signs: Vital Signs Temp 97.2 F L 01/10/22 12:00 Pulse 80 01/10/22 12:00 Resp 24 01/10/22 12:00 BP 152/65 01/10/22 12:00 Pulse Ox 99 01/10/22 12:00 Intake & Output 01/09/22 01/10/22 01/10/22 18:59 06:59 18:59 Intake Total 1602 20 Output Total 550 Balance 1602 -550 20 Weight 93.5 kg Intake: IV 20 Invasive Line 1 10 Invasive Line 2 10 Oral 1602 Output: Urine 550 Other: Voiding Method Toilet Toilet # Voids 2 1 # Bowel Movements 1 - Exam Sleepy but arousable. Confused. Currently with NG tube in place Examination of the heart S1 and S2 Examination lungs bilateral breath sounds are heard Abdomen is soft, distended nontender Examination lower extremity shows no significant edema DISABILITY COUNSELOR exam shows patient is confused. Moving all 4 extremities. - Labs CBC & Chem 7: 01/10/22 04:52 01/10/22 05:32 Labs: Abnormal Lab Results - Last 24 Hours (Table) 01/10/22 01/10/22 01/10/22 Range/Units 04:52 05:32 05:32 RBC 2.68 L (3.80-5.40) m/uL Hgb 7.8 L (11.4-16.0) gm/dL Hct 25.3 L (34.0-46.0) % MCHC 30.8 L (31.0-37.0) g/dL RDW 16.2 H (11.5-15.5) % Plt Count 101 L (150-450) k/uL Lymphocytes # 0.2 L (1.0-4.8) k/uL Sodium 134 L (137-145) mmol/L Potassium 5.3 H (3.5-5.1) mmol/L Carbon Dioxide 18 L (22-30) mmol/L BUN 64 H (7-17) mg/dL Creatinine 5.63 H (0.52-1.04) mg/dL Glucose 175 H (74-99) mg/dL POC Glucose (mg/dL) (75-99) mg/dL Calcium 7.5 L (8.4-10.2) mg/dL Ammonia 145 H (<30) umol/L Albumin 2.7 L (3.5-5.0) g/dL 01/10/22 01/10/22 01/10/22 Range/Units 07:41 08:45 12:45 RBC (3.80-5.40) m/uL Hgb (11.4-16.0) gm/dL Hct (34.0-46.0) % MCHC (31.0-37.0) g/dL RDW (11.5-15.5) % Plt Count (150-450) k/uL Lymphocytes # (1.0-4.8) k/uL Sodium (137-145) mmol/L Potassium (3.5-5.1) mmol/L Carbon Dioxide (22-30) mmol/L BUN (7-17) mg/dL Creatinine (0.52-1.04) mg/dL Glucose (74-99) mg/dL POC Glucose (mg/dL) 163 H 217 H (75-99) mg/dL Calcium (8.4-10.2) mg/dL Ammonia 80 H (<30) umol/L Albumin (3.5-5.0) g/dL Assessment and Plan Assessment: 1. Acute kidney injury, ATN, hepatorenal syndrome. Serum creatinine continues to worsen. 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 She has been agreeable. First treatment plan for today 01/10/2022. 2. 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 Hypertension, DC Norvasc due to lower extremity edema. We will try to keep minimal dose midodrine 4. Metabolic acidosis maintained on oral sodium bicarb 5. Chronic liver disease, chronic hepatitis C, not a candidate for liver transplant. 6. Volume overload, currently improved Plan: Hemodialysis today and then again in a.m. Continue treatment for hepatic encephalopathy Repeat labs in a.m.
--- NOTE | 2022-01-10 16:53 | P.PN ---
Subjective Progress Note Date: 01/10/22 01/03/2022:This is a 61-year-old female patient with long-standing history of hepatitis C, end-stage liver disease, significant ascites with history of prior paracentesis-reports last one , presented to the ER with hypertension urgency, chest pain, positive ascites and multiple other medical issues. Noncompliant with medications, ER reported prescription bottles brought in by patient were prescribed in 2018. Last paracentesis reported 09/23/2021. Denies nausea vomiting or abdominal pain. WBC 3.7 hemoglobin 7.7 hematocrit 24 platelet count 86, INR 1. sodium 137 potassium 5.2, BUN 40 creatinine 3.13 glucose 146 total bilirubin 0.7 AST 47 and 2023 alk phos 57. ProBNP 3520 .EKG reported sinus tachycardia, Troponin 0.194, 0.177, 0.156. Currently denies chest pain, palpitations or shortness of breath. Chest x-ray reported no acute pulmonary process. Blood pressure initially 193/67, mild tachycardia with heart rates in the low 100s respiratory rate 20, maintaining O2 sats of 100% on room air. Lactic acid 2.8, receiving IV fluid hydration. Beta blockers initiated, along with Norvasc 01/04/2022 Denies any abdominal pain .Paracentesis pending. Maintaining O2 sats in the high 90s on room air Receiving IV iron. BUN 42, creatinine 3.42. Afebrile. Blood pressure better controlled.Denies chest pain, palpitations or shortness of breath. 01/05/2022 complaints of nausea, no emesis. Denies chest pain, palpitations or increasing shortness of breath. Denies abdominal pain, paracentesis pending. Labs pending. Echo reported EF 55%, mild pulmonary hypertension, moderate pleural effusion. Patient is refusing to have inpatient Lexiscan stress test, requesting outpatient. 01/06/2022 and completed paracentesis yesterday was 12 L removed, cytology pending. Significant clinical improvement. Initially planned for discharge, labs returned reporting renal function continues to worsen; BUN 49, creatinine 3.97, GFR 11. 01/07/2022. Labs pending, diuresing well on IV push Lasix with 24-hour I&O reflecting a negative fluid balance. Low-dose Midodrin and Sandostatin.VSS. Maintaining O2 sats in the high 90s on room air. Denies abdominal pain. Denies chest pain, palpitations or shortness of breath. 01/10/2022 increased lethargy, obtunded early a.m., ammonia 145, NG placed for administration of lactulose, Narcan administered with positive results. Currently relaxed. Ammonia trending down currently to 80, repeat level this afte rnoon. Serum creatinine increased to 5.6 today, vascular surgery consult in place for temporary dialysis catheter today. Afebrile, maintaining O2 sats in the 90s on room air. Objective - Vital Signs Vital signs: Vital Signs Temp 97.3 F L 01/10/22 15:07 Pulse 81 01/10/22 15:07 Resp 20 01/10/22 15:13 BP 160/68 01/10/22 15:07 Pulse Ox 99 01/10/22 15:07 Intake & Output 01/09/22 01/10/22 01/10/22 18:59 06:59 18:59 Intake Total 1602 20 Output Total 550 Balance 1602 -550 20 Weight 93.5 kg Intake: IV 20 Invasive Line 1 10 Invasive Line 2 10 Oral 1602 Output: Urine 550 Other: Voiding Method Toilet Toilet # Voids 2 1 # Bowel Movements 1 - Exam General: [Patient sleepy, arousable, no acute distress.] HEENT: [PERRL. EOMI. No pharyngeal erythema or exudate, conjunctiva normal- pink, Sclera anicteric. NG tube present] Neck: Supple, no JVD Cardiac: [Heart regular in rate and rhythm. No S3. No S4. No clicks, rubs. No murmur.] Lungs: [Clear to auscultation bilaterally.] Abdomen: soft, nontender, distended , no guarding, no rigidity, positive bowel sounds Extremes: Positive bilateral lower extremity edema, no cyanosis no claudication normal pulses Skin: [Warm and dry ,No rash, nontender.] Neurologic: [No lateralizing deficits. CN II - XII grossly intact.] - Labs CBC & Chem 7: 01/11/22 09:00 01/11/22 09:00 Labs: Abnormal Lab Results - Last 24 Hours (Table) 01/10/22 01/10/22 01/10/22 Range/Units 04:52 05:32 05:32 RBC 2.68 L (3.80-5.40) m/uL Hgb 7.8 L (11.4-16.0) gm/dL Hct 25.3 L (34.0-46.0) % MCHC 30.8 L (31.0-37.0) g/dL RDW 16.2 H (11.5-15.5) % Plt Count 101 L (150-450) k/uL Lymphocytes # 0.2 L (1.0-4.8) k/uL Sodium 134 L (137-145) mmol/L Potassium 5.3 H (3.5-5.1) mmol/L Carbon Dioxide 18 L (22-30) mmol/L BUN 64 H (7-17) mg/dL Creatinine 5.63 H (0.52-1.04) mg/dL Glucose 175 H (74-99) mg/dL POC Glucose (mg/dL) (75-99) mg/dL Calcium 7.5 L (8.4-10.2) mg/dL Ammonia 145 H (<30) umol/L Albumin 2.7 L (3.5-5.0) g/dL Hep B Core Total Ab (Nonreactive) 01/10/22 01/10/22 01/10/22 Range/Units 05:40 07:41 08:45 RBC (3.80-5.40) m/uL Hgb (11.4-16.0) gm/dL Hct (34.0-46.0) % MCHC (31.0-37.0) g/dL RDW (11.5-15.5) % Plt Count (150-450) k/uL Lymphocytes # (1.0-4.8) k/uL Sodium (137-145) mmol/L Potassium (3.5-5.1) mmol/L Carbon Dioxide (22-30) mmol/L BUN (7-17) mg/dL Creatinine (0.52-1.04) mg/dL Glucose (74-99) mg/dL POC Glucose (mg/dL) 163 H (75-99) mg/dL Calcium (8.4-10.2) mg/dL Ammonia 80 H (<30) umol/L Albumin (3.5-5.0) g/dL Hep B Core Total Ab Reactive A (Nonreactive) 01/10/22 Range/Units 12:45 RBC (3.80-5.40) m/uL Hgb (11.4-16.0) gm/dL Hct (34.0-46.0) % MCHC (31.0-37.0) g/dL RDW (11.5-15.5) % Plt Count (150-450) k/uL Lymphocytes # (1.0-4.8) k/uL Sodium (137-145) mmol/L Potassium (3.5-5.1) mmol/L Carbon Dioxide (22-30) mmol/L BUN (7-17) mg/dL Creatinine (0.52-1.04) mg/dL Glucose (74-99) mg/dL POC Glucose (mg/dL) 217 H (75-99) mg/dL Calcium (8.4-10.2) mg/dL Ammonia (<30) umol/L Albumin (3.5-5.0) g/dL Hep B Core Total Ab (Nonreactive) Assessment and Plan Assessment: Acute Hepatic encephalopathy, on lactulose Acute on Chronic kidney disease, secondary to ATN related to hepatorenal syndrome. Baseline creatinine 2.6, worsening. Temporary dialysis catheter and initiation of hemodialysis pending. Chest pain, elevated troponins,ACS ruled out as per Cardiology Hypertensive urgency, improved Liver Cirrhosis,in a patient with history of hepatitis C, diagnosed 30 years ago, reports evaluated by Arvin Pittman greater than 10 years ago and reported that she was not a liver transplant candidate. (last hepatitis panel in April 2021 showed hepatitis B antibody nonreactive). Pancytopenia secondary to the above Fluid volume overload, ascites, status post large volume paracentesis with 12 liters drained, cytology reported no cytologically malignant cells identified Hyperkalemia Metabolic acidosis Plan: Continue current medication regime ,monitoring and symptomatic treatment. chest x-ray pending .Scheduled for hemodialysis today pending temporary catheter placement .continue on lactulose with close monitoring of ammonia levels,low sodium diet, fluid restrictions. The impression and plan of care has been dictated as directed. : I performed a history and examination of this patient, discussed the same with the dictator. I agree with the dictator's note ,documented as a scribe. Any additional findings or plans will be noted.
[2022-01-11] MEDS: OCTREOTIDE 100 MCG/ML INJ SQ SCH ×3 (00:39→18:01)
[2022-01-11] MEDS: FLUTICASONE 110 MCG INHALER INHALATION SCH ×2 (08:15→20:00)
--- NOTE | 2022-01-11 09:18 | XR ---
EXAMINATION TYPE: XR chest 1V portable DATE OF EXAM: 01/11/2022 COMPARISON: 01/10/2022 HISTORY: NG tube placement TECHNIQUE: Single frontal view of the chest is obtained. FINDINGS: NG tube is seen at the level of the distal gastric antrum. Limited inspiration with heart size stable and no overt failure or pneumothorax. No consolidative pneumonia. Subsegmental changes ri ght lung base most typical of atelectasis. IMPRESSION: 1. NG tube likely within the distal margin of the stomach or gastric antrum correlate clinically. 2. Right basilar atelectasis favored over pneumonia.
[2022-01-11 09:19] LABS: Anisocytosis Slight; Basophils % (A) 0 %; Eosinophils # (A) 0.2 k/uL (0-0.7); Eosinophils % (A) 3 %; HCT 23.8 % (34.0-46.0); HGB 7.5 gm/dL (11.4-16.0); Hypochromasia Slight; Lymphocytes # (A) 0.4 k/uL (1.0-4.8); Lymphocytes % (A) 7 %; MCH 28.6 pg (25.0-35.0); MCHC 31.7 g/dL (31.0-37.0); MCV 90.3 fL (80.0-100.0); Mean Platelet Volume 9.1; Monocytes # (A) 0.5 k/uL (0-1.0); Monocytes % (A) 9 %; Neutrophils # (A) 4.7 k/uL (1.3-7.7); Neutrophils % (A) 79 %; Platelet Count 102 k/uL (150-450); RBC 2.64 m/uL (3.80-5.40); RDW 16.2 % (11.5-15.5); WBC 5.9 k/uL (3.8-10.6)
[2022-01-11 09:29] LABS: Calcium 7.7 mg/dL (8.4-10.2); Potassium 4.4 mmol/L (3.5-5.1)
[2022-01-11] MEDS: MIDODRINE 5 MG TAB PO SCH (11:54)
[2022-01-11] MEDS: LACTULOSE 20 GM/30 ML CUP PO SCH ×2 (12:04→17:56)
[2022-01-11] MEDS: ASPIRIN 81 MG PO SCH (12:04)
[2022-01-11] MEDS: SODIUM BICARBONATE TAB 650 MG TAB PO SCH ×3 (12:04→21:27)
[2022-01-11] MEDS: METOPROLOL TARTRATE 50 MG TAB PO SCH ×2 (12:04→21:27)
[2022-01-11] MEDS: hydrALAZINE HCL 50 MG TAB PO SCH ×3 (12:04→21:27)
[2022-01-11] MEDS: KETOROLAC 0.5% OPHTH DROPS 5 ML BTL BOTH EYES SCH ×3 (12:05→21:28)
--- NOTE | 2022-01-11 12:56 | XR ---
EXAMINATION TYPE: XR chest 1V portable DATE OF EXAM: 01/11/2022 COMPARISON: Chest x-ray same dated earlier time HISTORY: NG tube placement TECHNIQUE: Single frontal view of the chest is obtained. FINDINGS: There has been interval repositioning of NG tube which shows that the tip is overlying the stomach. No other interval change. IMPRESSION: NG tube is in appropriate position.
--- NOTE | 2022-01-11 14:09 | P.PN ---
Subjective Patient is seen for follow-up for acute kidney injury and top of chronic kidney disease. She has underlying chronic liver disease and is being diuresed. Maintained on Lasix 40 mg IV every 12 hours Pt was started on sandostatin, midodrine as renal function continues to deteriorate. Discussed HD with patient. She has been agreeable Patient remains confused. She has a NG tube. Patient is currently seen on dialysis. She tolerated her treatment well yesterday. No significant complaints Not much urine output noted. 550 mL over 24 hours Objective - Vital Signs Vital signs: Vital Signs Temp 97.8 F 01/11/22 11:42 Pulse 77 01/11/22 11:42 Resp 19 01/11/22 11:42 BP 129/75 01/11/22 11:42 Pulse Ox 98 01/11/22 11:32 Intake & Output 01/10/22 01/11/22 01/11/22 18:59 06:59 18:59 Intake Total 320 300 Output Total 800 0 900 Balance -480 0 -600 Intake: IV 20 Invasive Line 1 10 Invasive Line 2 10 Hemodialysis 300 300 Output: Urine 0 Hemodialysis 800 900 Other: # Voids 1 # Bowel Movements 1 1 - Exam Sleepy but arousable. Confused. 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 Moving all 4 extremities. - Labs CBC & Chem 7: 01/11/22 09:00 01/11/22 09:00 Labs: Abnormal Lab Results - Last 24 Hours (Table) 01/10/22 01/11/22 01/11/22 Range/Units 05:40 09:00 09:00 RBC 2.64 L (3.80-5.40) m/uL Hgb 7.5 L (11.4-16.0) gm/dL Hct 23.8 L (34.0-46.0) % RDW 16.2 H (11.5-15.5) % Plt Count 102 L (150-450) k/uL Lymphocytes # 0.4 L (1.0-4.8) k/uL BUN 47 H (7-17) mg/dL Creatinine 3.99 H (0.52-1.04) mg/dL Glucose 148 H (74-99) mg/dL Calcium 7.7 L (8.4-10.2) mg/dL Hep B Core Total Ab Reactive A (Nonreactive) Assessment and Plan Assessment: 1. Acute kidney injury, ATN, hepatorenal syndrome. Serum creatinine continued to worsen. Started on hemodialysis on 01/10/2022. Poor urine output noted. 2. 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 Hypertension, DC Norvasc due to lower extremity edema. We will try to keep minimal dose midodrine 4. Metabolic acidosis maintained on oral sodium bicarb 5. Chronic liver disease, chronic hepatitis C, not a candidate for liver tr ansplant. 6. Volume overload, currently improved 7. Hepatic encephalopathy currently receiving lactulose. Ammonia has improved. Plan: Repeat hemodialysis in a.m. DC midodrine as blood pressure remains elevated Wolf at Check bladder scan rule out retention
--- NOTE | 2022-01-11 15:03 | P.PN ---
Subjective Progress Note Date: 01/11/22 This is a 61-year-old female patient with long-standing history of hepatitis C, end-stage liver disease, significant ascites with history of prior paracentesis- reports last one , presented to the ER with hypertension urgency, chest pain, positive ascites and multiple other medical issues. Noncompliant with medications, ER reported prescription bottles brought in by patient were prescribed in 2018. Last paracentesis reported 09/23/2021. Denies nausea vomiting or abdominal pain. WBC 3.7 hemoglobin 7.7 hematocrit 24 platelet count 86, INR 1. sodium 137 potassium 5.2, BUN 40 creatinine 3.13 glucose 146 total bilirubin 0.7 AST 47 and 2023 alk phos 57. ProBNP 3520 .EKG reported sinus tach ycardia, Troponin 0.194, 0.177, 0.156. Currently denies chest pain, palpitations or shortness of breath. Chest x-ray reported no acute pulmonary process. Blood pressure initially 193/67, mild tachycardia with heart rates in the low 100s respiratory rate 20, maintaining O2 sats of 100% on room air. Lactic acid 2.8, receiving IV fluid hydration. Beta blockers initiated, along with Norvasc 01/04/2022 Denies any abdominal pain .Paracentesis pending. Maintaining O2 sats in the high 90s on room air Receiving IV iron. BUN 42, creatinine 3.42. Afebrile. Blood pressure better controlled.Denies chest pain, palpitations or shortness of breath. 01/05/2022 complaints of nausea, no emesis. Denies chest pain, palpitations or increasing shortness of breath. Denies abdominal pain, paracentesis pending. Labs pending. Echo reported EF 55%, mild pulmonary hypertension, moderate pleural effusion. Patient is refusing to have inpatient Lexiscan stress test, r equesting outpatient. 01/06/2022 and completed paracentesis yesterday was 12 L removed, cytology p ending. Significant clinical improvement. Initially planned for discharge, labs returned reporting renal function continues to worsen; BUN 49, creatinine 3.97, GFR 11. 01/07/2022. Labs pending, diuresing well on IV push Lasix with 24-hour I&O reflecting a negative fluid balance. Low-dose Midodrin and Sandostatin.VSS. Maintaining O2 sats in the high 90s on room air. Denies abdominal pain. Denies chest pain, palpitations or shortness of breath. 01/10/2022 increased lethargy, obtunded early a.m., ammonia 145, NG placed for administration of lactulose, Narcan administered with positive results. Currently relaxed. Ammonia trending down currently to 80, repeat level this afternoon. Serum creatinine increased to 5.6 today, vascular surgery consult in place for temporary dialysis catheter today. Afebrile, maintaining O2 sats in the 90s on room air. 01/11/2022 right femoral dialysis catheter placed with hemodialysis initiated yesterday. Tolerated procedure well, scheduled for ultrafiltration today. Diuresing on scheduled Lasix IV push with 24-hour I&O reflecting a negative fluid balance. Maintained on lactulose via NG tube, significant improvement in ammonia level, decreased to 27. Remains confused,but more alert Objective - Vital Signs Vital signs: Vital Signs Temp 97.8 F 01/11/22 11:42 Pulse 77 01/11/22 11:42 Resp 19 01/11/22 11:42 BP 129/75 01/11/22 11:42 Pulse Ox 98 01/11/22 11:32 Intake & Output 01/10/22 01/11/22 01/11/22 18:59 06:59 18:59 Intake Total 320 300 Output Total 800 0 900 Balance -480 0 -600 Intake: IV 20 Invasive Line 1 10 Invasive Line 2 10 Hemodialysis 300 300 Output: Urine 0 Hemodialysis 800 900 Other: # Voids 1 # Bowel Movements 1 1 - Exam General: [Patient alert, confused, no acute distress.] HEENT: [PERRL. EOMI. No pharyngeal erythema or exudate, conjunctiva normal- pink, Sclera anicteric. NG tube present] Neck: Supple, no JVD Cardiac: [Heart regular in rate and rhythm. No S3. No S4. No clicks, rubs. No murmur.] Lungs: [Clear to auscultation bilaterally.] Abdomen: soft, nontender, distended , no guarding, no rigidity, positive bowel sounds. Right femoral dialysis catheter dressing clean dry and intact. Extremes: Positive bilateral lower extremity edema, no cyanosis no claudication normal pulses Skin: [Warm and dry ,No rash, nontender.] Neurologic: [No lateralizing deficits. CN II - XII grossly intact.] - Labs CBC & Chem 7: 01/11/22 09:00 01/11/22 09:00 Labs: Abnormal Lab Results - Last 24 Hours (Table) 01/10/22 01/11/22 01/11/22 Range/Units 05:40 09:00 09:00 RBC 2.64 L (3.80-5.40) m/uL Hgb 7.5 L (11.4-16.0) gm/dL Hct 23.8 L (34.0-46.0) % RDW 16.2 H (11.5-15.5) % Plt Count 102 L (150-450) k/uL Lymphocytes # 0.4 L (1.0-4.8) k/uL BUN 47 H (7-17) mg/dL Creatinine 3.99 H (0.52-1.04) mg/dL Glucose 148 H (74-99) mg/dL Calcium 7.7 L (8.4-10.2) mg/dL Hep B Core Total Ab Reactive A (Nonreactive) Assessment and Plan Assessment: Acute Hepatic encephalopathy, on lactulose, improving Acute on Chronic kidney disease, secondary to ATN related to hepatorenal syndrome. Baseline creatinine 2.6, worsening. Temporary dialysis catheter and initiation of hemodialysis pending. Chest pain, elevated troponins,ACS ruled out as per Cardiology Hypertensive urgency, improved Liver Cirrhosis,in a patient with history of hepatitis C, diagnosed 30 years ago, reports evaluated by Ar[facility] Pittman greater than 10 years ago and reported that she was not a liver transplant candidate. (last hepatitis panel in April 2021 showed hepatitis B antibody nonreactive). Pancytopenia secondary to the above Fluid volume overload, ascites, status post large volume paracentesis with 12 liters drained, cytology reported no cytologically malignant cells identified Hyperkalemia Metabolic acidosis Plan: Continue current medication regime ,monitoring and symptomatic treatment.Hemodialysis scheduled to be repeated tomorrow. continue on lactulose with close monitoring of ammonia levels,low sodium diet, fluid restrictions. Prognosis guarded given multiple complex medical issues. The impression and plan of care has been dictated as directed. : I performed a history and examination of this patient, discussed the same with the dictator. I agree with the dictator's note ,documented as a scribe. Any additional findings or plans will be noted.
[2022-01-12] MEDS: OCTREOTIDE 100 MCG/ML INJ SQ SCH ×3 (00:12→13:54)
[2022-01-12] MEDS: KETOROLAC 0.5% OPHTH DROPS 5 ML BTL BOTH EYES SCH ×4 (08:03→23:29)
[2022-01-12] MEDS: FLUTICASONE 110 MCG INHALER INHALATION SCH ×2 (08:35→20:14)
--- NOTE | 2022-01-12 11:53 | P.PN ---
Subjective Patient is seen for follow-up for acute kidney injury and top of chronic kidney disease. She has underlying chronic liver disease and is being diuresed. Maintained on Lasix 40 mg IV every 12 hours Pt was started on sandostatin, midodrine as renal function continues to deteriorate. Started on hemodialysis on 01/10/2022. Mentation is much improved. Patient is seen on hemodialysis today. Urine output is not charted. Ammonia is down to 27. Objective - Vital Signs Vital signs: Vital Signs Temp 97.6 F 01/12/22 00:00 Pulse 83 01/12/22 04:00 Resp 18 01/12/22 04:00 BP 134/49 01/12/22 04:00 Pulse Ox 98 01/12/22 04:00 Intake & Output 01/11/22 01/12/22 01/12/22 18:59 06:59 18:59 Intake Total 300 Output Total 900 Balance -600 Weight 94.3 kg Intake: Hemodialysis 300 Output: Hemodialysis 900 Other: Voiding Method Toilet Toilet # Voids 0 - Exam Awake, comfortable alert oriented 3. 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 Moving all 4 extremities. - Labs CBC & Chem 7: 01/11/22 09:00 01/11/22 09:00 Assessment and Plan Assessment: 1. Acute kidney injury, ATN, hepatorenal syndrome. Serum creatinine continued to worsen. Started on hemodialysis on 01/10/2022. Poor urine output noted. 2. 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 Hypertension, DC Norvasc due to lower extremity edema. We will try to keep minimal dose midodrine 4. Metabolic acidosis maintained on oral sodium bicarb 5. Chronic liver disease, chronic hepatitis C, not a candidate for liver transplant. 6. Volume overload, currently improved 7. Hepatic encephalopathy currently receiving lactulose. Ammonia has improved. Mentation back to baseline Plan: Hemodialysis today and then repeat again on 01/14/2022 Check post void residual.
--- NOTE | 2022-01-12 13:20 | P.PN ---
Subjective Progress Note Date: 01/12/22 This is a 61-year-old female patient with long-standing history of hepatitis C, end-stage liver disease, significant ascites with history of prior paracentesis- reports last one , presented to the ER with hypertension urgency, chest pain, positive ascites and multiple other medical issues. Noncompliant with medications, ER reported prescription bottles brought in by patient were prescribed in 2018. Last paracentesis reported 09/23/2021. Denies nausea vomiting or abdominal pain. WBC 3.7 hemoglobin 7.7 hematocrit 24 platelet count 86, INR 1. sodium 137 potassium 5.2, BUN 40 creatinine 3.13 glucose 146 total bilirubin 0.7 AST 47 and 2023 alk phos 57. ProBNP 3520 .EKG reported sinus tach ycardia, Troponin 0.194, 0.177, 0.156. Currently denies chest pain, palpitations or shortness of breath. Chest x-ray reported no acute pulmonary process. Blood pressure initially 193/67, mild tachycardia with heart rates in the low 100s respiratory rate 20, maintaining O2 sats of 100% on room air. Lactic acid 2.8, receiving IV fluid hydration. Beta blockers initiated, along with Norvasc 01/04/2022 Denies any abdominal pain .Paracentesis pending. Maintaining O2 sats in the high 90s on room air Receiving IV iron. BUN 42, creatinine 3.42. Afebrile. Blood pressure better controlled.Denies chest pain, palpitations or shortness of breath. 01/05/2022 complaints of nausea, no emesis. Denies chest pain, palpitations or increasing shortness of breath. Denies abdominal pain, paracentesis pending. Labs pending. Echo reported EF 55%, mild pulmonary hypertension, moderate pleural effusion. Patient is refusing to have inpatient Lexiscan stress test, r equesting outpatient. 01/06/2022 and completed paracentesis yesterday was 12 L removed, cytology p ending. Significant clinical improvement. Initially planned for discharge, labs returned reporting renal function continues to worsen; BUN 49, creatinine 3.97, GFR 11. 01/07/2022. Labs pending, diuresing well on IV push Lasix with 24-hour I&O reflecting a negative fluid balance. Low-dose Midodrin and Sandostatin.VSS. Maintaining O2 sats in the high 90s on room air. Denies abdominal pain. Denies chest pain, palpitations or shortness of breath. 01/10/2022 increased lethargy, obtunded early a.m., ammonia 145, NG placed for administration of lactulose, Narcan administered with positive results. Currently relaxed. Ammonia trending down currently to 80, repeat level this afternoon. Serum creatinine increased to 5.6 today, vascular surgery consult in place for temporary dialysis catheter today. Afebrile, maintaining O2 sats in the 90s on room air. 01/11/2022 right femoral dialysis catheter placed with hemodialysis initiated yesterday. Tolerated procedure well, scheduled for ultrafiltration today. Diuresing on scheduled Lasix IV push with 24-hour I&O reflecting a negative fluid balance. Maintained on lactulose via NG tube, significant improvement in ammonia level, decreased to 27. Remains confused,but more alert. 01/12/2022 maintained on 1200 mL fluid restrictions, lactulose, ammonia less than 9 ,sensorium significantly improved, but alert and oriented 3. Received dialysis again this morning. Renal function improving, BUN and decreased to 47 and creatinine down to 3.99.Diuresing well on Lasix IV push with 24-hour I&O reflecting a negative fluid balance. Denies chest pain, palpitations or shortness of breath. Objective - Vital Signs Vital signs: Vital Signs Temp 97.6 F 01/12/22 00:00 Pulse 83 01/12/22 04:00 Resp 18 01/12/22 04:00 BP 134/49 01/12/22 04:00 Pulse Ox 98 01/12/22 04:00 Intake & Output 01/11/22 01/12/22 01/12/22 18:59 06:59 18:59 Intake Total 300 Output Total 900 Balance -600 Weight 94.3 kg Intake: Hemodialysis 300 Output: Hemodialysis 900 Other: Voiding Method Toilet Toilet # Voids 0 - Exam General: Lying in bed, alert and oriented 3, no acute distress HEENT: [PERRL. EOMI. No pharyngeal erythema or exudate, conjunctiva normal- pink, Sclera anicteric. Neck: Supple, no JVD Cardiac: [Heart regular in rate and rhythm. No S3. No S4. No clicks, rubs. No murmur. Lungs: [Clear to auscultation bilaterally.] Abdomen: soft, nontender, distended , no guarding, no rigidity, positive bowel sounds. Right femoral dialysis catheter dressing clean dry and intact. Extremes: Positive bilateral lower extremity edema, no cyanosis no claudication normal pulses Skin: [Warm and dry ,No rash, nontender.] Neurologic: [No lateralizing deficits. CN II - XII grossly intact.] - Labs CBC & Chem 7: 01/11/22 09:00 01/11/22 09:00 Assessment and Plan Assessment: Acute Hepatic encephalopathy, on lactulose, improved Acute on Chronic kidney disease, secondary to ATN related to hepatorenal syndrome. Baseline creatinine 2.6, worsening. Temporary dialysis catheter and initiation of hemodialysis pending. Chest pain, elevated troponins,ACS ruled out as per Cardiology Hypertensive urgency, improved Liver Cirrhosis,in a patient with history of hepatitis C, diagnosed 30 years ago, reports evaluated by Arvin Pittman greater than 10 years ago and reported that she was not a liver transplant candidate. (last hepatitis panel in April 2021 showed hepatitis B antibody nonreactive). Pancytopenia secondary to the above Fluid volume overload, ascites, status post large volume paracentesis with 12 liters drained, cytology reported no cytologically malignant cells identified Hyperkalemia Metabolic acidosis Plan: Continue current medication regime ,monitoring and symptomatic treatment.maintain on low sodium diet, fluid restrictions, lactulose with close monitoring of ammonia levels, repeat in a.m.Hemodialysis tomorrow. Prognosis guarded given multiple complex medical issues. The impression and plan of care has been dictated as directed. : I performed a history and examination of this patient, discussed the same with the dictator. I agree with the dictator's note ,documented as a scribe. Any additional findings or plans will be noted.
[2022-01-12] MEDS: LACTULOSE 20 GM/30 ML CUP PO SCH ×2 (13:44→21:30)
[2022-01-12] MEDS: METOPROLOL TARTRATE 50 MG TAB PO SCH ×2 (13:44→21:38)
[2022-01-12] MEDS: SODIUM BICARBONATE TAB 650 MG TAB PO SCH ×3 (13:44→21:38)
[2022-01-12] MEDS: hydrALAZINE HCL 50 MG TAB PO SCH ×3 (13:44→21:38)
[2022-01-12] MEDS: ASPIRIN 81 MG PO SCH (13:44)
[2022-01-12] MEDS: PANTOPRAZOLE 40 MG/10 ML VIAL IVP SCH (13:45)
[2022-01-13] MEDS: OCTREOTIDE 100 MCG/ML INJ SQ SCH ×5 (01:43→23:51)
[2022-01-13] MEDS: FLUTICASONE 110 MCG INHALER INHALATION SCH ×2 (08:44→20:21)
[2022-01-13] MEDS: ASPIRIN 81 MG PO SCH (10:16)
[2022-01-13] MEDS: METOPROLOL TARTRATE 50 MG TAB PO SCH ×2 (10:16→21:09)
[2022-01-13] MEDS: hydrALAZINE HCL 50 MG TAB PO SCH (10:16)
[2022-01-13] MEDS: PANTOPRAZOLE 40 MG/10 ML VIAL IVP SCH (10:16)
[2022-01-13] MEDS: LACTULOSE 20 GM/30 ML CUP PO SCH ×2 (10:23→21:09)
[2022-01-13] MEDS: KETOROLAC 0.5% OPHTH DROPS 5 ML BTL BOTH EYES SCH ×4 (10:49→21:09)
--- NOTE | 2022-01-13 13:34 | P.PN ---
Subjective Patient is seen for follow-up for acute kidney injury and top of chronic kidney disease. She has underlying chronic liver disease and is being diuresed. Maintained on Lasix 40 mg IV every 12 hours Pt was started on sandostatin, midodrine as renal function continues to deteriorate. Started on hemodialysis on 01/10/2022. Patient is awake, comfortable. Alert oriented 3. She has a Brasher catheter as patient was initially noted to have 1000 mL on the bladder scan but when the Brasher was inserted it was about 300 mL. This must have been from the ascites. Patient is trying to increase oral intake. Objective - Vital Signs Vital signs: Vital Signs Temp 98.2 F 01/13/22 08:00 Pulse 66 01/13/22 08:00 Resp 18 01/13/22 08:00 BP 119/56 01/13/22 08:00 Pulse Ox 97 01/13/22 08:00 Intake & Output 01/12/22 01/13/22 01/13/22 18:59 06:59 18:59 Intake Total 480 Output Total 500 350 Balance -500 130 Intake: Oral 480 Output: Urine 350 Straight 350 Hemodialysis 500 Other: Voiding Method Toilet Toilet # Bowel Movements 4 - Exam Awake, comfortable alert oriented 3. 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 Moving all 4 extremities. - Labs CBC & Chem 7: 01/11/22 09:00 01/11/22 09:00 Assessment and Plan Assessment: 1. Acute kidney injury, ATN, hepatorenal syndrome. Serum creatinine continued to worsen. Started on hemodialysis on 01/10/2022. Poor urine output noted. 2. 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 Hypertension, DC Norvasc due to lower extremity edema. We will try to keep minimal dose midodrine 4. Metabolic acidosis maintained on oral sodium bicarb 5. Chronic liver disease, chronic hepatitis C, not a candidate for liver transplant. 6. Volume overload, currently improved 7. Hepatic encephalopathy currently receiving lactulose. Ammonia has improved. Mentation back to baseline Plan: Hemodialysis in a.m. Contact vascular surgery for permacath placement. proceed with outpatient chair time for dialysis
--- NOTE | 2022-01-13 13:51 | P.PN ---
Subjective Progress Note Date: 01/13/22 This is a 61-year-old female patient with long-standing history of hepatitis C, end-stage liver disease, significant ascites with history of prior paracentesis- reports last one , presented to the ER with hypertension urgency, chest pain, positive ascites and multiple other medical issues. Noncompliant with medications, ER reported prescription bottles brought in by patient were prescribed in 2018. Last paracentesis reported 09/23/2021. Denies nausea vomiting or abdominal pain. WBC 3.7 hemoglobin 7.7 hematocrit 24 platelet count 86, INR 1. sodium 137 potassium 5.2, BUN 40 creatinine 3.13 glucose 146 total bilirubin 0.7 AST 47 and 2023 alk phos 57. ProBNP 3520 .EKG reported sinus tach ycardia, Troponin 0.194, 0.177, 0.156. Currently denies chest pain, palpitations or shortness of breath. Chest x-ray reported no acute pulmonary process. Blood pressure initially 193/67, mild tachycardia with heart rates in the low 100s respiratory rate 20, maintaining O2 sats of 100% on room air. Lactic acid 2.8, receiving IV fluid hydration. Beta blockers initiated, along with Norvasc 01/04/2022 Denies any abdominal pain .Paracentesis pending. Maintaining O2 sats in the high 90s on room air Receiving IV iron. BUN 42, creatinine 3.42. Afebrile. Blood pressure better controlled.Denies chest pain, palpitations or shortness of breath. 01/05/2022 complaints of nausea, no emesis. Denies chest pain, palpitations or increasing shortness of breath. Denies abdominal pain, paracentesis pending. Labs pending. Echo reported EF 55%, mild pulmonary hypertension, moderate pleural effusion. Patient is refusing to have inpatient Lexiscan stress test, r equesting outpatient. 01/06/2022 and completed paracentesis yesterday was 12 L removed, cytology p ending. Significant clinical improvement. Initially planned for discharge, labs returned reporting renal function continues to worsen; BUN 49, creatinine 3.97, GFR 11. 01/07/2022. Labs pending, diuresing well on IV push Lasix with 24-hour I&O reflecting a negative fluid balance. Low-dose Midodrin and Sandostatin.VSS. Maintaining O2 sats in the high 90s on room air. Denies abdominal pain. Denies chest pain, palpitations or shortness of breath. 01/10/2022 increased lethargy, obtunded early a.m., ammonia 145, NG placed for administration of lactulose, Narcan administered with positive results. Currently relaxed. Ammonia trending down currently to 80, repeat level this afternoon. Serum creatinine increased to 5.6 today, vascular surgery consult in place for temporary dialysis catheter today. Afebrile, maintaining O2 sats in the 90s on room air. 01/11/2022 right femoral dialysis catheter placed with hemodialysis initiated yesterday. Tolerated procedure well, scheduled for ultrafiltration today. Diuresing on scheduled Lasix IV push with 24-hour I&O reflecting a negative fluid balance. Maintained on lactulose via NG tube, significant improvement in ammonia level, decreased to 27. Remains confused,but more alert. 01/12/2022 maintained on 1200 mL fluid restrictions, lactulose, ammonia less than 9 ,sensorium significantly improved, but alert and oriented 3. Received dialysis again this morning. Renal function improving, BUN and decreased to 47 and creatinine down to 3.99.Diuresing well on Lasix IV push with 24-hour I&O reflecting a negative fluid balance. Denies chest pain, palpitations or shortness of breath. 01/13/2022 diuresing well on Lasix IV push, no hemodialysis today. Scheduled for permacath placement later today. Denies chest pain, palpitations or shortness of breath. Objective - Vital Signs Vital signs: Vital Signs Temp 98.2 F 01/13/22 08:00 Pulse 66 01/13/22 08:00 Resp 18 01/13/22 08:00 BP 119/56 01/13/22 08:00 Pulse Ox 97 01/13/22 08:00 Intake & Output 01/12/22 01/13/22 01/13/22 18:59 06:59 18:59 Intake Total 480 Output Total 500 350 Balance -500 130 Intake: Oral 480 Output: Urine 350 Straight 350 Hemodialysis 500 Other: Voiding Method Toilet Toilet # Bowel Movements 4 - Exam General: Lying in bed, alert and oriented 3, no acute distress HEENT: [PERRL. EOMI. No pharyngeal erythema or exudate, conjunctiva normal- pink, Sclera anicteric. Neck: Supple, no JVD Cardiac: [Heart regular in rate and rhythm. No S3. No S4. No clicks, rubs. No murmur. Lungs: [Clear to auscultation bilaterally.] Abdomen: soft, nontender, distended , no guarding, no rigidity, positive bowel sounds. Right femoral dialysis catheter dressing clean dry and intact. Extremes: Positive bilateral lower extremity edema, no cyanosis no claudication normal pulses Skin: [Warm and dry ,No rash, nontender.] Neurologic: [No lateralizing deficits. CN II - XII grossly intact.] - Labs CBC & Chem 7: 01/11/22 09:00 01/11/22 09:00 Assessment and Plan Assessment: Acute Hepatic encephalopathy, on lactulose, improved Acute on Chronic kidney disease, secondary to ATN related to hepatorenal syndrome. Baseline creatinine 2.6, worsening. Temporary dialysis catheter and initiation of hemodialysis pending. Chest pain, elevated troponins,ACS ruled out as per Cardiology Hypertensive urgency, improved Liver Cirrhosis,in a patient with history of hepatitis C, diagnosed 30 years ago, reports evaluated by Arvin Pittman greater than 10 years ago and reported that she was not a liver transplant candidate. (last hepatitis panel in April 2021 showed hepatitis B antibody nonreactive). Pancytopenia secondary to the above Fluid volume overload, ascites, status post large volume paracentesis with 12 liters drained, cytology reported no cytologically malignant cells identified Hyperkalemia Metabolic acidosis Plan: Continue current medication regime ,monitoring and symptomatic treatment.vascular surgery consulted for permacath placement .maintain on low sodium diet, fluid restrictions, lactulose with close monitoring of ammonia levels, repeat in a.m.Hemodialysis tomorrow. Discharge planning in progress for subacute rehab after PermCath placement .Prognosis guarded given multiple complex medical issues. The impression and plan of care has been dictated as directed. : I performed a history and examination of this patient, discussed the same with the dictator. I agree with the dictator's note ,documented as a scribe. Any additional findings or plans will be noted.
[2022-01-13] MEDS ORDERED: LIDOCAINE 1% INJ 10MG/ML (20 ML MDV) SQ ONE ×2 (15:04)
[2022-01-13] MEDS ORDERED: fentaNYL (PF) 50 MCG/ML 2 ML AMP IV ONE (15:07)
[2022-01-13] MEDS ORDERED: SODIUM CHLORIDE 0.9% 250 ML IV ONE (15:07)
[2022-01-13] MEDS ORDERED: MIDAZOLAM 2 MG/2 ML VIAL IV ONE (15:07)
[2022-01-13] MEDS ORDERED: HEPARIN SODIUM 1,000 UN/ML (10ML VL) IV ONE (15:35)
--- NOTE | 2022-01-13 16:35 | PCN ---
PROCEDURE NOTE POSTOPERATIVE DIAGNOSIS: Acute on chronic renal failure. POSTOPERATIVE DIAGNOSIS: Acute on chronic renal failure. PROCEDURE PERFORMED: 1. Ultrasound-guided 23 cm dialysis catheter right IJ. 2. Removal of the dialysis catheter right femoral approach. SEDATION: Time is 30 minutes. PROCEDURE DESCRIPTION: This patient was brought to the laboratory aide. Right side of the chest was prepped and drapes applied in a sterile manner. 1% lidocaine for infiltrated into the chest and neck area. Ultrasound-guided micropuncture introduced into right jugular vein. Micropuncture guidewire was passed and a 4 Thai dilator was advanced on the top of the guidewire. Then we passed a regular guidewire which was parked in the inferior vena cava. A tunnel was created. Through the tunnel, we brought 23 cm dialysis catheter. Dilator was advanced on the top of the guidewire. Then, sheath was advanced up the guidewire. Through the sheath, we introduced the dialysis catheter. Tip of the catheter at superior vena cava atrial junction, flushed with heparin saline and hep- locked. Incision was closed with Vicryl and nylon. Then, left groin was prepped and stitches were removed. The right catheter was removed from the right femoral approach. The pressure dressing was applied. Patient tolerated the procedure well. MMODL / IJN: [id number] /
--- NOTE | 2022-01-13 16:46 | XR ---
EXAMINATION TYPE: XR chest 1V portable DATE OF EXAM: 01/13/2022 Comparison: 01/11/2022 Clinical History: 61-year-old female post dialysis cath placement Findings: Heart is normal size. Mild atherosclerotic arch calcifications. Right-sided double-lumen hemodialysis catheter with tips in the upper right atrium. No appreciable pneumothorax. Some strandy atelectasis in the lower lungs. No consolidation or pleural effusion. Impression: Right-sided double-lumen hemodialysis catheter with tips in the upper right atrium. No acute pulmonar y process.
[2022-01-13] MEDS: SODIUM BICARBONATE TAB 650 MG TAB PO SCH (17:57)
[2022-01-13] MEDS: hydrALAZINE HCL 25 MG TAB PO SCH (21:09)
[2022-01-14] MEDS: FLUTICASONE 110 MCG INHALER INHALATION SCH ×2 (08:19→19:18)
--- NOTE | 2022-01-14 09:52 | IR ---
EXAMINATION TYPE: IR cvc insert central tunneled DATE OF EXAM: 01/13/2022 CLINICAL HISTORY: Failed dialysis. TECHNIQUE: Fluoroscopy. COMPARISON: None. FINDINGS: Fluoroscopic guidance was provided during right internal jugular dialysis catheter inserti on procedure performed by Dr. Resendiz. A total of 78 seconds of fluoroscopic time was utilized durin g the procedure and 111 spot images was acquired. Images show guidewire and subsequent large bore rig ht internal jugular dialysis catheter terminating in the right atrium. IMPRESSION: As Above.
[2022-01-14 10:21] LABS: Anisocytosis Slight; Basophils % (A) 0 %; Eosinophils # (A) 0.3 k/uL (0-0.7); Eosinophils % (A) 5 %; HGB 7.4 gm/dL (11.4-16.0); Lymphocytes # (A) 0.8 k/uL (1.0-4.8); Lymphocytes % (A) 14 %; MCH 27.8 pg (25.0-35.0); MCHC 30.8 g/dL (31.0-37.0); MCV 90.2 fL (80.0-100.0); Mean Platelet Volume 8.7; Monocytes # (A) 0.4 k/uL (0-1.0); Monocytes % (A) 7 %; Neutrophils % (A) 73 %; RBC 2.66 m/uL (3.80-5.40); RDW 16.1 % (11.5-15.5); WBC 5.5 k/uL (3.8-10.6)
--- NOTE | 2022-01-14 10:39 | P.PN ---
Subjective Patient is seen for follow-up for acute kidney injury and top of chronic kidney disease. Pt was started on sandostatin, midodrine as renal function continued to deteriorate. Started on hemodialysis on 01/10/2022 for worsening renal function Patient is awake, comfortable. Alert oriented 3. She has a Brasher catheter as patient was initially noted to have 1000 mL on the bladder scan but when the Brasher was inserted it was about 300 mL. This must have been from the ascites. Patient is trying to increase oral intake. Seen on hemodialysis this morning. The patient is tolerating her treatment well. Catheter was changed to an IJ permacath. Objective - Vital Signs Vital signs: Vital Signs Temp 98.4 F 01/14/22 04:00 Pulse 73 01/14/22 04:00 Resp 18 01/14/22 04:00 BP 145/65 01/14/22 04:00 Pulse Ox 98 01/14/22 04:00 Intake & Output 01/13/22 01/14/22 01/14/22 18:59 06:59 18:59 Intake Total 50 370 Output Total 325 Balance 50 45 Intake: IV 50 Oral 370 Output: Urine 325 Straight 325 Other: Voiding Method Toilet Indwelling Catheter # Bowel Movements 1 1 - Exam Awake, comfortable alert oriented 3. 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 Moving all 4 extremities. - Labs CBC & Chem 7: 01/14/22 10:00 01/11/22 09:00 Labs: Abnormal Lab Results - Last 24 Hours (Table) 01/14/22 Range/Units 10:00 RBC 2.66 L (3.80-5.40) m/uL Hgb 7.4 L (11.4-16.0) gm/dL Hct 24.0 L (34.0-46.0) % MCHC 30.8 L (31.0-37.0) g/dL RDW 16.1 H (11.5-15.5) % Assessment and Plan Assessment: 1. Acute kidney injury, ATN, hepatorenal syndrome. Serum creatinine continued to worsen. Started on hemodialysis on 01/10/2022. Poor urine output noted. 2. 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 Hypertension, DC Norvasc due to lower extremity edema. We will try to keep minimal dose midodrine 4. Metabolic acidosis , patient was maintained on oral sodium bicarb, discontinued after dialysis was initiated. 5. Chronic liver disease, chronic hepatitis C, not a candidate for liver transplant. 6. Volume overload, currently improved 7. Hepatic encephalopathy, status post lactulose. Ammonia has improved. Mentation back to baseline Plan: Continue hemodialysis as outpatient. Patient is stable for discharge from nephrology standpoint. DC the Sandostatin. Monitor for recovery of renal function.
[2022-01-14 10:41] LABS: Albumin 2.8 g/dL (3.5-5.0); Calcium 7.7 mg/dL (8.4-10.2); Magnesium 1.9 mg/dL (1.6-2.3); Potassium 3.6 mmol/L (3.5-5.1); Total Protein 6.8 g/dL (6.3-8.2)
[2022-01-14 12:09] LABS: Platelet Count 80 k/uL (150-450)
[2022-01-14] MEDS: METOPROLOL TARTRATE 50 MG TAB PO SCH ×2 (12:45→21:55)
[2022-01-14] MEDS: ASPIRIN 81 MG PO SCH (12:45)
[2022-01-14] MEDS: hydrALAZINE HCL 25 MG TAB PO SCH ×2 (12:45→21:55)
[2022-01-14] MEDS: PANTOPRAZOLE 40 MG/10 ML VIAL IVP SCH (12:46)
[2022-01-14] MEDS: LACTULOSE 20 GM/30 ML CUP PO SCH ×2 (12:46→21:55)
[2022-01-14] MEDS: KETOROLAC 0.5% OPHTH DROPS 5 ML BTL BOTH EYES SCH ×3 (12:46→17:30)
[2022-01-14] MEDS: OCTREOTIDE 100 MCG/ML INJ SQ SCH ×2 (14:49→14:50)
--- NOTE | 2022-01-14 15:43 | P.PN ---
Subjective 01/03/2022:This is a 61-year-old female patient with long-standing history of hepatitis C, end-stage liver disease, significant ascites with history of prior paracentesis-reports last one , presented to the ER with hypertension urgency, chest pain, positive ascites and multiple other medical issues. Noncompliant with medications, ER reported prescription bottles brought in by patient were prescribed in 2018. Last paracentesis reported 09/23/2021. Denies nausea vomiting or abdominal pain. WBC 3.7 hemoglobin 7.7 hematocrit 24 plate let count 86, INR 1. sodium 137 potassium 5.2, BUN 40 creatinine 3.13 glucose 146 total bilirubin 0.7 AST 47 and 2023 alk phos 57. ProBNP 3520 .EKG reported sinus tachycardia, Troponin 0.194, 0.177, 0.156. Currently denies chest pain, palpitations or shortness of breath. Chest x-ray reported no acute pulmonary process. Blood pressure initially 193/67, mild tachycardia with heart rates in the low 100s respiratory rate 20, maintaining O2 sats of 100% on room air. Lactic acid 2.8, receiving IV fluid hydration. Beta blockers initiated, along with Norvasc 01/04/2022 Denies any abdominal pain .Paracentesis pending. Maintaining O2 sats in the high 90s on room air Receiving IV iron. BUN 42, creatinine 3.42. Afebrile. Blood pressure better controlled.Denies chest pain, palpitations or shortness of breath. 01/05/2022 complaints of nausea, no emesis. Denies chest pain, palpitations or increasing shortness of breath. Denies abdominal pain, paracentesis pending. Labs pending. Echo reported EF 55%, mild pulmonary hypertension, moderate pleural effusion. Patient is refusing to have inpatient Lexiscan stress test, requesting outpatient. 01/06/2022 and completed paracentesis yesterday was 12 L removed, cytology pending. Significant clinical improvement. Initially planned for discharge, labs returned reporting renal function continues to worsen; BUN 49, creatinine 3.97, GFR 11. 01/07/2022. Labs pending, diuresing well on IV push Lasix with 24-hour I&O reflecting a negative fluid balance. Low-dose Midodrin and Sandostatin.VSS. Maintaining O2 sats in the high 90s on room air. Denies abdominal pain. Denies chest pain, palpitations or shortness of breath. 01/10/2022 increased lethargy, obtunded early a.m., ammonia 145, NG placed for administration of lactulose, Narcan administered with positive results. Currently relaxed. Ammonia trending down currently to 80, repeat level this afternoon. Serum creatinine increased to 5.6 today, vascular surgery consult in place for temporary dialysis catheter today. Afebrile, maintaining O2 sats in the 90s on room air. 01/11/2022 right femoral dialysis catheter placed with hemodialysis initiated yesterday. Tolerated procedure well, scheduled for ultrafiltration today. Diuresing on scheduled Lasix IV push with 24-hour I&O reflecting a negative fluid balance. Maintained on lactulose via NG tube, significant improvement in ammonia level, decreased to 27. Remains confused,but more alert. 01/12/2022 maintained on 1200 mL fluid restrictions, lactulose, ammonia less than 9 ,sensorium significantly improved, but alert and oriented 3. Received dialysis again this morning. Renal function improving, BUN and decreased to 47 and creatinine down to 3.99.Diuresing well on Lasix IV push with 24-hour I&O reflecting a negative fluid balance. Denies chest pain, palpitations or s hortness of breath. 01/13/2022 diuresing well on Lasix IV push, no hemodialysis today. Scheduled for permacath placement later today. Denies chest pain, palpitations or shortness of breath. 01/14/2022: patient is awake and alert. Planning ECF at [facility] tomorrow. Permacath now in place.Nephrology following. Ammonia level stable. Pt remains on Lactulose. Pt has no chest pain, sob ,nausea or vomitting today. Objective - Vital Signs Vital signs: Vital Signs Temp 98.0 F 01/14/22 14:56 Pulse 77 01/14/22 14:56 Resp 16 01/14/22 14:56 BP 145/69 01/14/22 14:56 Pulse Ox 98 01/14/22 14:56 Intake & Output 01/13/22 01/14/22 01/14/22 18:59 06:59 18:59 Intake Total 50 370 200 Output Total 325 1300 Balance 50 45 -1100 Intake: IV 50 Oral 370 200 Output: Urine 325 Straight 325 Hemodialysis 1300 Other: Voiding Method Toilet Indwelling Catheter Indwelling Catheter # Bowel Movements 1 1 - Exam General: sitting in chair alert and oriented 3, no acute distress Neck: Supple, no JVD, permacath in place in Right neck/chest wall. Cardiac: [Heart regular in rate and rhythm. No S3. No S4. No clicks, rubs. No murmur. Lungs: [Clear to auscultation bilaterally.] Abdomen: soft, nontender, distended , no guarding, no rigidity, positive bowel sounds. Extremes: Positive bilateral lower extremity edema, no cyanosis no claudication normal pulses Skin: [Warm and dry ,No rash, nontender.] Neurologic: [No lateralizing deficits. CN II - XII grossly intact.] - Labs CBC & Chem 7: 01/14/22 10:00 01/14/22 10:00 Labs: Abnormal Lab Results - Last 24 Hours (Table) 01/14/22 01/14/22 Range/Units 10:00 10:00 RBC 2.66 L (3.80-5.40) m/uL Hgb 7.4 L (11.4-16.0) gm/dL Hct 24.0 L (34.0-46.0) % MCHC 30.8 L (31.0-37.0) g/dL RDW 16.1 H (11.5-15.5) % Plt Count 80 L (150-450) k/uL Lymphocytes # 0.8 L (1.0-4.8) k/uL Sodium 135 L (137-145) mmol/L Carbon Dioxide 31 H (22-30) mmol/L BUN 23 H (7-17) mg/dL Creatinine 2.19 H (0.52-1.04) mg/dL Calcium 7.7 L (8.4-10.2) mg/dL AST 45 H (14-36) U/L Albumin 2.8 L (3.5-5.0) g/dL Assessment and Plan Assessment: Acute Hepatic encephalopathy, on lactulose Acute on Chronic kidney disease, secondary to ATN related to hepatorenal syndrome. Baseline creatinine 2.6, worsening. Temporary dialysis catheter and initiation of hemodialysis pending. Chest pain, elevated troponins,ACS ruled out as per Cardiology Hypertensive urgency, improved Liver Cirrhosis,in a patient with history of hepatitis C, diagnosed 30 years ago, reports evaluated by Arvin Pittman greater than 10 years ago and reported that she was not a liver transplant candidate. (last hepatitis panel in April 2021 showed hepatitis B antibody nonreactive). Pancytopenia secondary to the above Fluid volume overload, ascites, status post large volume paracentesis with 12 liters drained, cytology reported no cytologically malignant cells identified Hyperkalemia Metabolic acidosis Plan: Continue current medication regime ,monitoring and symptomatic treatment. chest x-ray pending .Scheduled for hemodialysis today pending temporary catheter placement .continue on lactulose with close monitoring of ammonia levels,low sodium diet, fluid restrictions. The impression and plan of care has been dictated as directed. : I performed a history and examination of this patient, discussed the same with the dictator. I agree with the dictator's note ,documented as a scribe. Any additional findings or plans will be noted. (1) Acute kidney injury superimposed on CKD Current Visit: Yes Status: Acute Code(s): N17.9 - ACUTE KIDNEY FAILURE, UNSPECIFIED; N18.9 - CHRONIC KIDNEY DISEASE, UNSPECIFIED SNOMED Code(s): 58462546 (2) Ascites Current Visit: Yes Status: Acute Code(s): R18.8 - OTHER ASCITES SNOMED Code(s): 325412039 (3) Cirrhosis of liver Current Visit: Yes Status: Acute Code(s): K74.60 - UNSPECIFIED CIRRHOSIS OF LIVER SNOMED Code(s): 78495584 (4) History of hepatitis C Current Visit: Yes Status: Acute Code(s): Z86.19 - PERSONAL HISTORY OF OTHER INFECTIOUS AND PARASITIC DISEASES SNOMED Code(s): 70276811334789 (5) Hepatic encephalopathy Current Visit: Yes Status: Acute Code(s): K72.90 - HEPATIC FAILURE, UNSPECIFIED WITHOUT COMA SNOMED Code(s): 32149146 Plan: Continue current medication regime ,monitoring and symptomatic treatment. maint ain on low sodium diet, fluid restrictions, lactulose with close monitoring of ammonia levels, repea .Prognosis guarded given multiple complex medical issues. ECF tomorrow repeat labs in am
[2022-01-15] MEDS: OCTREOTIDE 100 MCG/ML INJ SQ SCH ×2 (00:57→09:05)
[2022-01-15] MEDS: KETOROLAC 0.5% OPHTH DROPS 5 ML BTL BOTH EYES SCH ×5 (00:58→20:54)
[2022-01-15] MEDS: LACTULOSE 20 GM/30 ML CUP PO SCH ×2 (08:57→20:48)
[2022-01-15] MEDS: PANTOPRAZOLE 40 MG/10 ML VIAL IVP SCH (09:04)
[2022-01-15] MEDS: ASPIRIN 81 MG PO SCH (09:05)
[2022-01-15] MEDS: hydrALAZINE HCL 25 MG TAB PO SCH ×2 (09:05→20:49)
[2022-01-15] MEDS: METOPROLOL TARTRATE 50 MG TAB PO SCH ×2 (09:05→20:49)
[2022-01-15] MEDS: FLUTICASONE 110 MCG INHALER INHALATION SCH ×2 (09:20→19:36)
[2022-01-15 09:22] LABS: Anisocytosis Slight; Basophils % (A) 0 %; Eosinophils # (A) 0.2 k/uL (0-0.7); Eosinophils % (A) 5 %; HCT 23.6 % (34.0-46.0); HGB 7.3 gm/dL (11.4-16.0); Hypochromasia Moderate; Lymphocytes # (A) 0.6 k/uL (1.0-4.8); Lymphocytes % (A) 12 %; MCH 29.1 pg (25.0-35.0); MCHC 31.1 g/dL (31.0-37.0); MCV 93.5 fL (80.0-100.0); Mean Platelet Volume 9.1; Monocytes # (A) 0.3 k/uL (0-1.0); Monocytes % (A) 6 %; Neutrophils # (A) 3.5 k/uL (1.3-7.7); Neutrophils % (A) 76 %; RBC 2.52 m/uL (3.80-5.40); RDW 16.4 % (11.5-15.5); WBC 4.6 k/uL (3.8-10.6)
[2022-01-15 09:25] LABS: Platelet Count 68 k/uL (150-450)
[2022-01-15 09:31] LABS: Albumin 2.8 g/dL (3.5-5.0); Calcium 7.6 mg/dL (8.4-10.2); Potassium 3.8 mmol/L (3.5-5.1); Total Protein 6.7 g/dL (6.3-8.2)
--- NOTE | 2022-01-15 10:39 | P.PN ---
Subjective Patient is seen in follow-up for acute kidney injury, currently hemodialysis dependent. Tolerated dialysis well yesterday. Denies chest pain or shortness of breath. No vomiting. Does admit to loose bowel movements from lactulose. Vital signs are stable. General: Awake and alert. No acute distress. HEENT: Head exam is unremarkable. LUNGS: Breath sounds decreased. HEART: Rate and Rhythm are regular. ABDOMEN: Soft, distention noted. EXTREMITITES: No edema. Objective - Vital Signs Vital signs: Vital Signs Temp 98.5 F 01/15/22 08:55 Pulse 83 01/15/22 08:55 Resp 16 01/15/22 08:55 BP 178/73 01/15/22 08:55 Pulse Ox 97 01/15/22 04:00 Intake & Output 01/14/22 01/15/22 01/15/22 18:59 06:59 18:59 Intake Total 318 Output Total 1300 Balance -982 Weight 95.5 kg Intake: Oral 318 Output: Hemodialysis 1300 Other: Voiding Method Indwelling Catheter Indwelling Catheter # Bowel Movements 1 - Labs CBC & Chem 7: 01/15/22 09:01 01/15/22 09:01 Labs: Abnormal Lab Results - Last 24 Hours (Table) 01/14/22 01/14/22 01/15/22 Range/Units 10:00 10:00 09:01 RBC 2.52 L (3.80-5.40) m/uL Hgb 7.3 L (11.4-16.0) gm/dL Hct 23.6 L (34.0-46.0) % RDW 16.4 H (11.5-15.5) % Plt Count 80 L 68 L (150-450) k/uL Lymphocytes # 0.8 L 0.6 L (1.0-4.8) k/uL Sodium 135 L (137-145) mmol/L Carbon Dioxide 31 H (22-30) mmol/L BUN 23 H (7-17) mg/dL Creatinine 2.19 H (0.52-1.04) mg/dL Glucose (74-99) mg/dL Calcium 7.7 L (8.4-10.2) mg/dL AST 45 H (14-36) U/L Albumin 2.8 L (3.5-5.0) g/dL 01/15/22 Range/Units 09:01 RBC (3.80-5.40) m/uL Hgb (11.4-16.0) gm/dL Hct (34.0-46.0) % RDW (11.5-15.5) % Plt Count (150-450) k/uL Lymphocytes # (1.0-4.8) k/uL Sodium 136 L (137-145) mmol/L Carbon Dioxide (22-30) mmol/L BUN 25 H (7-17) mg/dL Creatinine 2.98 H (0.52-1.04) mg/dL Glucose 158 H (74-99) mg/dL Calcium 7.6 L (8.4-10.2) mg/dL AST 46 H (14-36) U/L Albumin 2.8 L (3.5-5.0) g/dL Assessment and Plan Plan: Assessment: 1. Acute kidney injury secondary to ATN secondary to hepatorenal syndrome. Started on hemodialysis 01/10/2022. Oliguric. 2. Chronic kidney disease stage IV secondary to hepatorenal syndrome. 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 Baseline creatinine 2.6-2.9. 3. Volume overload. Improved. 4. Liver cirrhosis. ?Hep C induced. Last paracentesis 01/05/22 with 12.1 L drained. GI following. 5. Hypertension with chronic kidney disease. 6. Anemia of chronic kidney disease. Plan: Hemodialysis Monday. Check phosphorus level. Check iron studies. Awaits discharge to ECF. Monitor for renal recovery outpatient.
[2022-01-15 11:00] LABS: Phosphorus 3.1 mg/dL (2.5-4.5)
--- NOTE | 2022-01-15 12:12 | P.DS ---
Providers Date of admission: 01/02/22 14:46 Expected date of discharge: 01/15/22 Attending physician: Enoch Bagley Consults: 01/02/22 14:45 Consult Physician Urgent Consulting Provider: Jade Vyas Consult Reason/Comments: honey/ckd Do you want consulting provider notified?: Yes 01/03/22 10:31 Consult Physician Routine Consulting Provider: Tiny Bose Consult Reason/Comments: cirrhosis, Hepatitis Do you want consulting provider notified?: Yes 01/09/22 20:46 Consult Physician Routine Consulting Provider: Kristofer Resendiz Consult Reason/Comments: hemodialysis cath placement Do you want consulting provider notified?: Yes Primary care physician: Jordy Rios - Tabby Diagnosis(es) (1) Acute kidney injury superimposed on CKD Current Visit: Yes Status: Acute (2) Ascites Current Visit: Yes Status: Acute (3) Cirrhosis of liver Current Visit: Yes Status: Acute (4) History of hepatitis C Current Visit: Yes Status: Acute (5) Hepatic encephalopathy Current Visit: Yes Status: Acute (6) Essential (primary) hypertension Current Visit: Yes Status: Acute (7) Anemia in chronic kidney disease Current Visit: Yes Status: Acute (8) Pancytopenia Current Visit: Yes Status: Acute Hospital Course: 01/03/2022:This is a 61-year-old female patient with long-standing history of hepatitis C, end-stage liver disease, significant ascites with history of prior paracentesis-reports last one , presented to the ER with hypertension urgency, chest pain, positive ascites and multiple other medical issues. Noncompliant with medications, ER reported prescription bottles brought in by patient were prescribed in 2018. Last paracentesis reported 09/23/2021. Denies nausea vomiting or abdominal pain. WBC 3.7 hemoglobin 7.7 hematocrit 24 platelet count 86, INR 1. sodium 137 potassium 5.2, BUN 40 creatinine 3.13 glucose 146 total bilirubin 0.7 AST 47 and 2023 alk phos 57. ProBNP 3520 .EKG reported sinus tachycardia, Troponin 0.194, 0.177, 0.156. Currently denies chest pain, palpitations or shortness of breath. Chest x-ray reported no acute pulmonary process. Blood pressure initially 193/67, mild tachycardia with heart rates in the low 100s respiratory rate 20, maintaining O2 sats of 100% on room air. Lactic acid 2.8, receiving IV fluid hydration. Beta blockers initiated, along with Norvasc 01/04/2022 Denies any abdominal pain .Paracentesis pending. Maintaining O2 sats in the high 90s on room air Receiving IV iron. BUN 42, creatinine 3.42. Afebrile. Blood pressure better controlled.Denies chest pain, palpitations or shortness of breath. 01/05/2022 complaints of nausea, no emesis. Denies chest pain, palpitations or increasing shortness of breath. Denies abdominal pain, paracentesis pending. Labs pending. Echo reported EF 55%, mild pulmonary hypertension, moderate pleural effusion. Patient is refusing to have inpatient Lexiscan stress test, requesting outpatient. 01/06/2022 and completed paracentesis yesterday was 12 L removed, cytology pending. Significant clinical improvement. Initially planned for discharge, labs returned reporting renal function continues to worsen; BUN 49, creatinine 3.97, GFR 11. 01/07/2022. Labs pending, diuresing well on IV push Lasix with 24-hour I&O reflecting a negative fluid balance. Low-dose Midodrin and Sandostatin.VSS. Maintaining O2 sats in the high 90s on room air. Denies abdominal pain. Denies chest pain, palpitations or shortness of breath. 01/10/2022 increased lethargy, obtunded early a.m., ammonia 145, NG placed for administration of lactulose, Narcan administered with positive results. Currently relaxed. Ammonia trending down currently to 80, repeat level this afternoon. Serum creatinine increased to 5.6 today, vascular surgery consult in place for temporary dialysis catheter today. Afebrile, maintaining O2 sats in the 90s on room air. 01/11/2022 right femoral dialysis catheter placed with hemodialysis initiated yesterday. Tolerated procedure well, scheduled for ultrafiltration today. Diuresing on scheduled Lasix IV push with 24-hour I&O reflecting a negative fluid balance. Maintained on lactulose via NG tube, significant improvement in ammonia level, decreased to 27. Remains confused,but more alert. 01/12/2022 maintained on 1200 mL fluid restrictions, lactulose, ammonia less than 9 ,sensorium significantly improved, but alert and oriented 3. Received dialysis again this morning. Renal function improving, BUN and decreased to 47 and creatinine down to 3.99.Diuresing well on Lasix IV push with 24-hour I&O reflecting a negative fluid balance. Denies chest pain, palpitations or shortness of breath. 01/13/2022 diuresing well on Lasix IV push, no hemodialysis today. Scheduled for permacath placement later today. Denies chest pain, palpitations or shortness of breath. 01/14/2022: patient is awake and alert. Planning ECF at [facility] tomorrow. Permacath now in place.Nephrology following. Ammonia level stable. Pt remains on Lactulose. Pt has no chest pain, sob ,nausea or vomitting today. 01/15/2022: Patient is doing well. Cleared by nephrology. Will have hemodialysis Monday. I will reevaluate her at [facility] on Monday. Patient Condition at Discharge: Stable Plan - Discharge Summary New Discharge Prescriptions: New Ketorolac 0.5% Ophth Soln [Acular 0.5%] 1 drops BOTH EYES QID ml hydrALAZINE HCL [Apresoline] 50 mg PO TID #90 tab Metoprolol Tartrate [Lopressor] 50 mg PO BID #90 tab amLODIPine [Norvasc] 10 mg PO DAILY #30 tab Sodium Bicarbonate Tab 650 mg PO TID #90 tab Aspirin 81 mg PO DAILY Lactulose [Cephulac] 30 gm PO BID ml Continue Albuterol Sulfate [Ventolin HFA] 2 puff INHALATION RT-Q6H PRN PRN Reason: Shortness Of Breath Furosemide [Lasix] 20 mg PO DAILY Budesonide [Pulmicort Flexhaler] 1 puff IN RT-DAILY PRN PRN Reason: Shortness Of Breath Discontinued Spironolactone [Aldactone] 25 mg PO DAILY oxyCODONE HCL [oxyCODONE HCL (IR)] 10 mg PO Q6H PRN PRN Reason: Pain hydrALAZINE HCL 25 mg PO TID Discharge Medication List Albuterol Sulfate [Ventolin HFA] 2 puff INHALATION RT-Q6H PRN 07/14/20 [History] Furosemide [Lasix] 20 mg PO DAILY 02/25/21 [History] Budesonide [Pulmicort Flexhaler] 1 puff IN RT-DAILY PRN 01/02/22 [History] Ketorolac 0.5% Ophth Soln [Acular 0.5%] 1 drops BOTH EYES QID ml 01/06/22 [Rx] Metoprolol Tartrate [Lopressor] 50 mg PO BID #90 tab 01/06/22 [Rx] Sodium Bicarbonate Tab 650 mg PO TID #90 tab 01/06/22 [Rx] amLODIPine [Norvasc] 10 mg PO DAILY #30 tab 01/06/22 [Rx] hydrALAZINE HCL [Apresoline] 50 mg PO TID #90 tab 01/06/22 [Rx] Aspirin 81 mg PO DAILY 01/15/22 [Rx] Lactulose [Cephulac] 30 gm PO BID ml 01/15/22 [Rx] Follow up Appointment(s)/Referral(s): [facility] [REFERRING] - Bryant Puente DO [STAFF PHYSICIAN] - 1 Week Tiny Bose MD [STAFF PHYSICIAN] - 2 Weeks Esau Witt DO [STAFF PHYSICIAN] - 1 Week Patient Instructions/Handouts: Low-Sodium Diet (DC) Activity/Diet/Wound Care/Special Instructions: miguel CHRISTINE,BMP in 3 days Discharge/Stand Alone Forms: Who Do I Call?, Assisted Living Facilities, Community Resources, Help In The Home, Personal Joss House Keeper Discharge Disposition: TRANSFER TO SNF/ECF
[2022-01-15 16:32] LABS: % Iron Saturation 15.59 (12.00-45.00)
[2022-01-16] MEDS: FLUTICASONE 110 MCG INHALER INHALATION SCH ×2 (08:08→19:16)
[2022-01-16] MEDS: METOPROLOL TARTRATE 50 MG TAB PO SCH ×2 (09:14→20:40)
[2022-01-16] MEDS: hydrALAZINE HCL 25 MG TAB PO SCH ×2 (09:14→20:40)
[2022-01-16] MEDS: ASPIRIN 81 MG PO SCH (09:14)
[2022-01-16] MEDS: PANTOPRAZOLE 40 MG/10 ML VIAL IVP SCH (09:14)
[2022-01-16] MEDS: KETOROLAC 0.5% OPHTH DROPS 5 ML BTL BOTH EYES SCH ×4 (09:15→20:40)
[2022-01-16] MEDS: LACTULOSE 20 GM/30 ML CUP PO SCH ×2 (09:15→20:45)
--- NOTE | 2022-01-16 09:50 | P.PN ---
Subjective Patient is seen in follow-up for acute kidney injury, currently hemodialysis dependent. Denies chest pain or shortness of breath. No vomiting. No further diarrhea. Brasher catheter removed. Oliguric. Vital signs are stable. General: Awake and alert. No acute distress. HEENT: Head exam is unremarkable. LUNGS: Breath sounds decreased. HEART: Rate and Rhythm are regular. ABDOMEN: Soft, distention noted. EXTREMITITES: No edema. Objective - Vital Signs Vital signs: Vital Signs Temp 98.1 F 01/16/22 04:00 Pulse 76 01/16/22 08:11 Resp 16 01/16/22 08:11 BP 174/72 01/16/22 08:11 Pulse Ox 99 01/16/22 08:11 Intake & Output 01/15/22 01/16/22 01/16/22 18:59 06:59 18:59 Intake Total 240 480 Output Total 300 Balance -60 480 Intake: Oral 240 480 Output: Urine 300 Other: Voiding Method Indwelling Catheter Toilet - Labs CBC & Chem 7: 01/15/22 09:01 01/15/22 09:01 Labs: Abnormal Lab Results - Last 24 Hours (Table) 01/15/22 Range/Units 09:01 Iron 47 L (50-170) ug/dL Assessment and Plan Plan: Assessment: 1. Acute kidney injury secondary to ATN secondary to hepatorenal syndrome. Started on hemodialysis 01/10/2022. Oliguric. 2. Chronic kidney disease stage IV secondary to hepatorenal syndrome. Also concern for underlying hep C induced GN. Baseline creatinine 2.6-2.9. 3. Volume overload. Improved. 4. Liver cirrhosis. ?Hep C induced. Last paracentesis 01/05/22 with 12.1 L drained. GI following. 5. Hypertension with chronic kidney disease. Blood pressure on the higher side this morning but high reading was 138/61. Monitor. 6. Anemia of chronic kidney disease. Iron deficiency noted. Plan: Hemodialysis Monday. Add IV iron. Awaits discharge to [facility]. Monitor for renal recovery outpatient. Phosphorus 3.1. If blood pressure staying persistently above 140/90, will increase dose of hydralazine.
[2022-01-16] MEDS: SODIUM FERRIC GLUCONAT-SUCROSE 125 MG in SODIUM CHLORIDE 0.9% 100 ML IVPB SCH (10:31)
--- NOTE | 2022-01-16 12:51 | P.PN ---
Subjective 01/03/2022:This is a 61-year-old female patient with long-standing history of hepatitis C, end-stage liver disease, significant ascites with history of prior paracentesis-reports last one , presented to the ER with hypertension urgency, chest pain, positive ascites and multiple other medical issues. Noncompliant with medications, ER reported prescription bottles brought in by patient were prescribed in 2018. Last paracentesis reported 09/23/2021. Denies nausea vomiting or abdominal pain. WBC 3.7 hemoglobin 7.7 hematocrit 24 plate let count 86, INR 1. sodium 137 potassium 5.2, BUN 40 creatinine 3.13 glucose 146 total bilirubin 0.7 AST 47 and 2023 alk phos 57. ProBNP 3520 .EKG reported sinus tachycardia, Troponin 0.194, 0.177, 0.156. Currently denies chest pain, palpitations or shortness of breath. Chest x-ray reported no acute pulmonary process. Blood pressure initially 193/67, mild tachycardia with heart rates in the low 100s respiratory rate 20, maintaining O2 sats of 100% on room air. Lactic acid 2.8, receiving IV fluid hydration. Beta blockers initiated, along with Norvasc 01/04/2022 Denies any abdominal pain .Paracentesis pending. Maintaining O2 sats in the high 90s on room air Receiving IV iron. BUN 42, creatinine 3.42. Afebrile. Blood pressure better controlled.Denies chest pain, palpitations or shortness of breath. 01/05/2022 complaints of nausea, no emesis. Denies chest pain, palpitations or increasing shortness of breath. Denies abdominal pain, paracentesis pending. Labs pending. Echo reported EF 55%, mild pulmonary hypertension, moderate pleural effusion. Patient is refusing to have inpatient Lexiscan stress test, requesting outpatient. 01/06/2022 and completed paracentesis yesterday was 12 L removed, cytology pending. Significant clinical improvement. Initially planned for discharge, labs returned reporting renal function continues to worsen; BUN 49, creatinine 3.97, GFR 11. 01/07/2022. Labs pending, diuresing well on IV push Lasix with 24-hour I&O reflecting a negative fluid balance. Low-dose Midodrin and Sandostatin.VSS. Maintaining O2 sats in the high 90s on room air. Denies abdominal pain. Denies chest pain, palpitations or shortness of breath. 01/10/2022 increased lethargy, obtunded early a.m., ammonia 145, NG placed for administration of lactulose, Narcan administered with positive results. Currently relaxed. Ammonia trending down currently to 80, repeat level this afternoon. Serum creatinine increased to 5.6 today, vascular surgery consult in place for temporary dialysis catheter today. Afebrile, maintaining O2 sats in the 90s on room air. 01/11/2022 right femoral dialysis catheter placed with hemodialysis initiated yesterday. Tolerated procedure well, scheduled for ultrafiltration today. Diuresing on scheduled Lasix IV push with 24-hour I&O reflecting a negative fluid balance. Maintained on lactulose via NG tube, significant improvement in ammonia level, decreased to 27. Remains confused,but more alert. 01/12/2022 maintained on 1200 mL fluid restrictions, lactulose, ammonia less than 9 ,sensorium significantly improved, but alert and oriented 3. Received dialysis again this morning. Renal function improving, BUN and decreased to 47 and creatinine down to 3.99.Diuresing well on Lasix IV push with 24-hour I&O reflecting a negative fluid balance. Denies chest pain, palpitations or s hortness of breath. 01/13/2022 diuresing well on Lasix IV push, no hemodialysis today. Scheduled for permacath placement later today. Denies chest pain, palpitations or shortness of breath. 01/14/2022: patient is awake and alert. Planning ECF at [facility] tomorrow. Permacath now in place.Nephrology following. Ammonia level stable. Pt remains on Lactulose. Pt has no chest pain, sob ,nausea or vomitting today. 01/15/2022: Patient is doing well. Cleared by nephrology. Will have hemodialysis Monday. I will reevaluate her at [facility] on Monday. 01/16/2022: patient is stable and awaiting d/c to ECF tomorrow after dialysis. She is c/o some pain, but has NO interest in starting pain meds again. Objective - Vital Signs Vital signs: Vital Signs Temp 98.1 F 01/16/22 04:00 Pulse 69 01/16/22 11:26 Resp 16 01/16/22 11:26 BP 126/59 01/16/22 11:26 Pulse Ox 99 01/16/22 11:26 Intake & Output 01/15/22 01/16/22 01/16/22 18:59 06:59 18:59 Intake Total 240 480 Output Total 300 Balance -60 480 Intake: Oral 240 480 Output: Urine 300 Other: Voiding Method Indwelling Catheter Toilet - Exam General: sitting in chair alert and oriented 3, no acute distress Neck: Supple, no JVD, permacath in place in Right neck/chest wall. Cardiac: [Heart regular in rate and rhythm. No S3. No S4. No clicks, rubs. No murmur. Lungs: [Clear to auscultation bilaterally.] Abdomen: soft, nontender, distended , no guarding, no rigidity, positive bowel sounds. Extremes: Positive bilateral lower extremity edema, no cyanosis no claudication normal pulses Skin: [Warm and dry ,No rash, nontender.] Neurologic: [No lateralizing deficits. CN II - XII grossly intact.] - Labs CBC & Chem 7: 01/15/22 09:01 01/15/22 09:01 Labs: Abnormal Lab Results - Last 24 Hours (Table) 01/15/22 Range/Units 09:01 Iron 47 L (50-170) ug/dL Assessment and Plan Assessment: Acute Hepatic encephalopathy, on lactulose Acute on Chronic kidney disease, secondary to ATN related to hepatorenal syndrome. Baseline creatinine 2.6, worsening. Temporary dialysis catheter and initiation of hemodialysis pending. Chest pain, elevated troponins,ACS ruled out as per Cardiology Hypertensive urgency, improved Liver Cirrhosis,in a patient with history of hepatitis C, diagnosed 30 years ago, reports evaluated by Arvin Pittman greater than 10 years ago and reported that she was not a liver transplant candidate. (last hepatitis panel in April 2021 showed hepatitis B antibody nonreactive). Pancytopenia secondary to the above Fluid volume overload, ascites, status post large volume paracentesis with 12 liters drained, cytology reported no cytologically malignant cells identified Hyperkalemia Metabolic acidosis Plan: Continue current medication regime ,monitoring and symptomatic treatment. chest x-ray pending .Scheduled for hemodialysis today pending temporary catheter placement .continue on lactulose with close monitoring of ammonia levels,low sodium diet, fluid restrictions. The impression and plan of care has been dictated as directed. : I performed a history and examination of this patient, discussed the same with the dictator. I agree with the dictator's note ,documented as a scribe. Any additional findings or plans will be noted. (1) Acute kidney injury superimposed on CKD Current Visit: Yes Status: Acute Code(s): N17.9 - ACUTE KIDNEY FAILURE, UNSPECIFIED; N18.9 - CHRONIC KIDNEY DISEASE, UNSPECIFIED SNOMED Code(s): 88547028 (2) Ascites Current Visit: Yes Status: Acute Code(s): R18.8 - OTHER ASCITES SNOMED Code(s): 958261772 (3) Cirrhosis of liver Current Visit: Yes Status: Acute Code(s): K74.60 - UNSPECIFIED CIRRHOSIS OF LIVER SNOMED Code(s): 14804036 (4) History of hepatitis C Current Visit: Yes Status: Acute Code(s): Z86.19 - PERSONAL HISTORY OF OTHER INFECTIOUS AND PARASITIC DISEASES SNOMED Code(s): 21302859553934 (5) Hepatic encephalopathy Current Visit: Yes Status: Acute Code(s): K72.90 - HEPATIC FAILURE, UNSPECIFIED WITHOUT COMA SNOMED Code(s): 80337143 (6) Essential (primary) hypertension Current Visit: Yes Status: Acute Code(s): I10 - ESSENTIAL (PRIMARY) HYPERTENSION SNOMED Code(s): 72148827 (7) Anemia in chronic kidney disease Current Visit: Yes Status: Acute Code(s): N18.9 - CHRONIC KIDNEY DISEASE, UNSPECIFIED; D63.1 - ANEMIA IN CHRONIC KIDNEY DISEASE SNOMED Code(s): 617053217 (8) Pancytopenia Current Visit: Yes Status: Acute Code(s): D61.818 - OTHER PANCYTOPENIA SNOMED Code(s): 206452504 Plan: dialysis tomorrow ECF tomorrow repeat labs in am
[2022-01-16] MEDS ORDERED: MELATONIN 3 MG TABLET PO PRN (21:27)
[2022-01-16] MEDS ORDERED: GABAPENTIN 100 MG CAP PO SCH (21:30)
[2022-01-17] MEDS: SODIUM FERRIC GLUCONAT-SUCROSE 125 MG in SODIUM CHLORIDE 0.9% 100 ML IVPB SCH (08:04)
[2022-01-17] MEDS: ASPIRIN 81 MG PO SCH (08:04)
[2022-01-17] MEDS: PANTOPRAZOLE 40 MG/10 ML VIAL IVP SCH (08:04)
[2022-01-17] MEDS: METOPROLOL TARTRATE 50 MG TAB PO SCH (08:04)
[2022-01-17] MEDS: hydrALAZINE HCL 25 MG TAB PO SCH (08:04)
[2022-01-17] MEDS: LACTULOSE 20 GM/30 ML CUP PO SCH (08:05)
[2022-01-17] MEDS: KETOROLAC 0.5% OPHTH DROPS 5 ML BTL BOTH EYES SCH ×2 (08:12→14:21)
[2022-01-17] MEDS: FLUTICASONE 110 MCG INHALER INHALATION SCH (08:33)
[2022-01-17 09:07] LABS: Anisocytosis Slight; Basophils % (A) 0 %; Eosinophils # (A) 0.2 k/uL (0-0.7); Eosinophils % (A) 6 %; HCT 22.4 % (34.0-46.0); HGB 7.2 gm/dL (11.4-16.0); Hypochromasia Slight; Lymphocytes # (A) 0.4 k/uL (1.0-4.8); Lymphocytes % (A) 12 %; MCH 29.8 pg (25.0-35.0); MCHC 32.3 g/dL (31.0-37.0); MCV 92.3 fL (80.0-100.0); Mean Platelet Volume 9.8; Monocytes # (A) 0.2 k/uL (0-1.0); Monocytes % (A) 6 %; Neutrophils # (A) 2.8 k/uL (1.3-7.7); Neutrophils % (A) 74 %; RBC 2.43 m/uL (3.80-5.40); RDW 16.9 % (11.5-15.5); WBC 3.8 k/uL (3.8-10.6)
[2022-01-17 09:17] LABS: Platelet Count 64 k/uL (150-450)
--- NOTE | 2022-01-17 09:42 | P.PN ---
Subjective Patient is seen in follow-up for acute kidney injury, currently hemodialysis dependent. Denies chest pain or shortness of breath. No vomiting or diarrhea. Oliguric. No active complaints. Vital signs are stable. General: Awake and alert. No acute distress. HEENT: Head exam is unremarkable. LUNGS: Breath sounds decreased. HEART: Rate and Rhythm are regular. ABDOMEN: Soft, distention noted. EXTREMITITES: No edema. Objective - Vital Signs Vital signs: Vital Signs Temp 98.1 F 01/17/22 08:00 Pulse 67 01/17/22 08:00 Resp 18 01/17/22 08:00 BP 157/67 01/17/22 08:00 Pulse Ox 98 01/17/22 08:00 Intake & Output 01/16/22 01/17/22 01/17/22 18:59 06:59 18:59 Intake Total 200 350 Output Total 0 Balance 0 200 350 Weight 94.7 kg Intake: IV 10 Invasive Line 4 10 Intake, IV Titration 100 Amount Sodium Ferric Gluconat- 100 Sucrose 125 mg In Sodium Chloride 0.9% 100 ml @ 100 mls/hr IVPB DAILY [facility] Rx#:[id number] Oral 200 240 Output: Post Void Residual 0 Other: Voiding Method Toilet Toilet # Voids 1 # Bowel Movements 1 - Labs CBC & Chem 7: 01/17/22 08:45 01/15/22 09:01 Labs: Abnormal Lab Results - Last 24 Hours (Table) 01/17/22 Range/Units 08:45 RBC 2.43 L (3.80-5.40) m/uL Hgb 7.2 L (11.4-16.0) gm/dL Hct 22.4 L (34.0-46.0) % RDW 16.9 H (11.5-15.5) % Plt Count 64 L (150-450) k/uL Lymphocytes # 0.4 L (1.0-4.8) k/uL Assessment and Plan Plan: Assessment: 1. Acute kidney injury secondary to ATN secondary to hepatorenal syndrome. Started on hemodialysis 01/10/2022. Oliguric. 2. Chronic kidney disease stage IV secondary to hepatorenal syndrome. Also concern for underlying hep C induced GN. Baseline creatinine 2.6-2.9. 3. Volume overload. Improved. 4. Liver cirrhosis. ?Hep C induced. Last paracentesis 01/05/22 with 12.1 L drained. GI following. 5. Hypertension with chronic kidney disease. Blood pressure stable. 6. Anemia of chronic kidney disease. Iron deficiency noted. No active bleeding. Plan: Hemodialysis today. Maintain IV iron. Awaits discharge to ECF. Monitor for renal recovery outpatient. Phosphorus 3.1.
[2022-01-17 11:42] VITALS: BP 147/68; PULSE 67; RESP 20; TEMP 97.6
[2022-01-17] MEDS ORDERED: CALCIUM CARBONATE 500 MG CHEWABLE PO ONE (14:12)
== END 2022-01-17 16:22 | DRG 673 ==
LOC: EC 11:41 → 3SCARD 14:46
PROVIDERS: ADMIT Family Medicine; ATTEND Family Medicine
PROC: 05HD33Z Insertion of Infusion Device into Right Cephalic Vein, Percutaneous Approach (ICD-10-PCS; 2022-01-04)
PROC: 0W9G3ZZ Drainage of Peritoneal Cavity, Percutaneous Approach (ICD-10-PCS; 2022-01-05)
PROC: 06HY33Z Insertion of Infusion Device into Lower Vein, Percutaneous Approach (ICD-10-PCS; 2022-01-10)
PROC: 5A1D70Z Performance of Urinary Filtration, Intermittent, Less than 6 Hours Per Day (ICD-10-PCS; 2022-01-10)
PROC: 05HD33Z Insertion of Infusion Device into Right Cephalic Vein, Percutaneous Approach (ICD-10-PCS; 2022-01-10)
PROC: 0DH673Z Insertion of Infusion Device into Stomach, Via Natural or Artificial Opening (ICD-10-PCS; 2022-01-10)
PROC: 02HV33Z Insertion of Infusion Device into Superior Vena Cava, Percutaneous Approach (ICD-10-PCS; principal; 2022-01-13 12:55)
PROC: 0JH63XZ Insertion of Tunneled Vascular Access Device into Chest Subcutaneous Tissue and Fascia, Percutaneous Approach (ICD-10-PCS; principal; 2022-01-13 12:55)
PROC: 06PYX3Z Removal of Infusion Device from Lower Vein, External Approach (ICD-10-PCS; principal; 2022-01-13 12:55)
DX: N17.0 Acute kidney failure with tubular necrosis (principal); K76.7 Hepatorenal syndrome; K72.00 Acute and subacute hepatic failure without coma; D61.818 Other pancytopenia; E87.2 Acidosis; R18.8 Other ascites; J90 Pleural effusion, not elsewhere classified; D63.1 Anemia in chronic kidney disease; K72.10 Chronic hepatic failure without coma; I27.20 Pulmonary hypertension, unspecified; E11.22 Type 2 diabetes mellitus with diabetic chronic kidney disease; K74.60 Unspecified cirrhosis of liver; E11.43 Type 2 diabetes mellitus with diabetic autonomic (poly)neuropathy; B18.2 Chronic viral hepatitis C; Z99.2 Dependence on renal dialysis; N18.4 Chronic kidney disease, stage 4 (severe); Z20.822 Contact with and (suspected) exposure to COVID-19; I12.9 Hypertensive chronic kidney disease with stage 1 through stage 4 chronic kidney disease, or unspecified chronic kidney disease; I16.0 Hypertensive urgency; E87.5 Hyperkalemia; E87.70 Fluid overload, unspecified; E61.1 Iron deficiency; K31.84 Gastroparesis; J45.909 Unspecified asthma, uncomplicated; K42.9 Umbilical hernia without obstruction or gangrene; K43.9 Ventral hernia without obstruction or gangrene; K21.9 Gastro-esophageal reflux disease without esophagitis; R00.0 Tachycardia, unspecified; R77.8 Other specified abnormalities of plasma proteins; T46.5X6A Underdosing of other antihypertensive drugs, initial encounter; Z91.128 Patient's intentional underdosing of medication regimen for other reason; F12.90 Cannabis use, unspecified, uncomplicated; Z79.51 Long term (current) use of inhaled steroids; Z79.899 Other long term (current) drug therapy; Z60.2 Problems related to living alone; Z87.442 Personal history of urinary calculi; Z87.440 Personal history of urinary (tract) infections; Z86.16 Personal history of COVID-19; Z86.19 Personal history of other infectious and parasitic diseases; Z90.49 Acquired absence of other specified parts of digestive tract; Z87.19 Personal history of other diseases of the digestive system; Z90.710 Acquired absence of both cervix and uterus; Z87.42 Personal history of other diseases of the female genital tract; Z87.891 Personal history of nicotine dependence; Z86.2 Personal history of diseases of the blood and blood-forming organs and certain disorders involving the immune mechanism; Z98.890 Other specified postprocedural states; Z80.3 Family history of malignant neoplasm of breast; Z80.42 Family history of malignant neoplasm of prostate; Z80.0 Family history of malignant neoplasm of digestive organs
CPT/HCPCS: 36410; 36415; 36558; 49083; 71045; 71046; 76705; 76770; 76937; 77001; 80048; 80053; 80061; 81001; 82042; 82140; 82570; 82728; 83540; 83550; 83605; 83690; 83735; 83880; 84100; 84156; 84157; 84443; 84484; 85025; 85610; 85730; 86704; 86706; 86803; 87340; 87522; 87635; 87902; 88108; 88305; 89050; 90935; 93005; 93306; 99285